=== PATIENT | male | born 1980 | race Caucasian/White ===

== ENCOUNTER → 2019-12-15 09:59 | Outpatient (BNVA) | payer OTHER, SELFPAY | PROVIDERS: PCP Family Medicine; Referring Provider Family Medicine; Visit Provider Internal Medicine Gastroenterology | DX: B18.2 Chronic viral hepatitis C (principal) | CPT/HCPCS: 99211 ==

== ENCOUNTER 2020-01-12 08:48 | Outpatient (REF) | payer OTHER, SELFPAY | END 2020-01-12 08:49 | disposition home or self-care (01) | LOC: HO.WFDLDS 08:48 | PROVIDERS: Visit Provider Internal Medicine Gastroenterology | DX: Z13.89 Encounter for screening for other disorder (principal) ==

== ENCOUNTER 2020-01-12 09:02 | Outpatient (REF) | payer OTHER, SELFPAY | END 2020-01-12 09:03 | disposition home or self-care (01) | LOC: HO.WFDLDS 09:02 | PROVIDERS: Visit Provider Internal Medicine Gastroenterology | DX: Z13.89 Encounter for screening for other disorder (principal) ==

== ENCOUNTER 2020-01-18 15:33 | Outpatient (REF) | payer OTHER, SELFPAY ==
[2020-01-18 16:35] LABS: MANUAL DIFF FLAG NO
[2020-01-18 16:38] LABS: Basophils Absolute Auto 0.1 X10*3/uL (0.0-0.2); Basophils Percent Auto 0.5 % (0-2); Eosinophils Percent Auto 0.2 % (0-4); Hematocrit 42.9 % (42-52); Hemoglobin 13.6 g/dl (14.0-18.0); Imm Gran Abs Auto 0.03 X10*3/uL (0.00-0.03); Imm Gran Pct Auto 0.3 % (0.0-0.4); Lymphocytes Absolute Auto 3.3 X10*3/uL (1.2-4.9); Lymphocytes Percent Auto 35.3 % (20-40); Mean Corpuscular HGB Conc 31.7 g/dl (31.0-36.0); Mean Corpuscular Hemoglobin 25.9 pg (27.0-33.0); Mean Corpuscular Volume 81.6 fL (80-98); Mean Platelet Volume 10.2 fL (9.4-12.4); Monocytes Absolute Auto 0.3 X10*3/uL (0.1-1.2); Monocytes Percent Auto 3.6 % (2-11); Neutrophils Absolute Auto 5.7 X10*3/uL (2.0-8.3); Neutrophils Percent Auto 60.1 % (45-73); Platelet Count 354 X10*3/uL (160-400); Red Blood Count 5.26 X10*6/uL (4.60-5.80); Red Cell Distribution Width 13.6 % (11.0-16.0); White Blood Count 9.4 X10*3/uL (4.8-10.8)
[2020-01-18 17:00] LABS: Alanine Aminotransferase 18 U/L (0-40); Albumin Level 4.7 g/dL (3.5-5.0); Alkaline Phosphatase 52 U/L (39-117); Anion Gap 14 (12-20); Aspartate Amino Transferase 25 U/L (5-37); Bilirubin Total 0.4 mg/dL (0.0-1.0); Blood Urea Nitrogen 10 mg/dL (9-16); Calcium 9.6 mg/dL (8.4-10.2); Carbon Dioxide 30 mmol/L (22-29); Chloride 100 mmol/L (96-108); Estimated Glomerular Filt Rate > 60; Glucose Random 76 mg/dL (60-115); Sodium 139 mmol/L (135-145); Total Protein 8.1 g/dL (6.5-8.0)
[2020-05-01 11:45] LABS: HCV Log PCR <1.18 NOT DETECTED; HepC Viral Load <15 NOT DETECTED
== END 2020-01-18 15:34 | disposition home or self-care (01) ==
LOC: HO.LAB 15:33
PROVIDERS: Visit Provider Internal Medicine Gastroenterology
DX: B18.2 Chronic viral hepatitis C (principal)
CPT/HCPCS: 36415; 80053; 85025; 87522

== ENCOUNTER 2020-02-09 12:00 | Outpatient (REF) | payer OTHER, SELFPAY ==
[2020-02-09 13:04] LABS: MANUAL DIFF FLAG NO
[2020-02-09 13:33] LABS: Alanine Aminotransferase 17 U/L (0-40); Albumin Level 4.8 g/dL (3.5-5.0); Alkaline Phosphatase 52 U/L (39-117); Anion Gap 11 (12-20); Aspartate Amino Transferase 24 U/L (5-37); Bilirubin Total 0.4 mg/dL (0.0-1.0); Blood Urea Nitrogen 15 mg/dL (9-16); Calcium 9.8 mg/dL (8.4-10.2); Carbon Dioxide 30 mmol/L (22-29); Chloride 101 mmol/L (96-108); Estimated Glomerular Filt Rate > 60; Glucose Random 79 mg/dL (60-115); Potassium 5.1 mmol/l (3.3-5.1); Sodium 137 mmol/L (135-145); Total Protein 8.2 g/dL (6.5-8.0)
[2020-02-09 13:35] LABS: Basophils Absolute Auto 0.1 X10*3/uL (0.0-0.2); Basophils Percent Auto 0.5 % (0-2); Eosinophils Percent Auto 0.4 % (0-4); Hematocrit 42.6 % (42-52); Hemoglobin 13.9 g/dl (14.0-18.0); Imm Gran Abs Auto 0.03 X10*3/uL (0.00-0.03); Imm Gran Pct Auto 0.3 % (0.0-0.4); Lymphocytes Absolute Auto 3.2 X10*3/uL (1.2-4.9); Lymphocytes Percent Auto 29.7 % (20-40); Mean Corpuscular HGB Conc 32.6 g/dl (31.0-36.0); Mean Corpuscular Hemoglobin 26.6 pg (27.0-33.0); Mean Corpuscular Volume 81.5 fL (80-98); Mean Platelet Volume 10.1 fL (9.4-12.4); Monocytes Absolute Auto 0.5 X10*3/uL (0.1-1.2); Neutrophils Absolute Auto 6.9 X10*3/uL (2.0-8.3); Neutrophils Percent Auto 64.1 % (45-73); Platelet Count 308 X10*3/uL (160-400); Red Blood Count 5.23 X10*6/uL (4.60-5.80); White Blood Count 10.7 X10*3/uL (4.8-10.8)
[2020-05-01 11:48] LABS: HCV Log PCR <1.18 NOT DETECTED; HepC Viral Load <15 NOT DETECTED
== END 2020-02-09 12:01 | disposition home or self-care (01) ==
LOC: HO.LAB 12:00
PROVIDERS: Visit Provider Internal Medicine Gastroenterology
DX: B18.2 Chronic viral hepatitis C (principal)
CPT/HCPCS: 36415; 80053; 85025; 87522

== ENCOUNTER → 2020-02-27 16:21 | Outpatient (BNVA) | payer OTHER, SELFPAY | PROVIDERS: PCP Family Medicine; Visit Provider Internal Medicine Gastroenterology | DX: Z76.89 Persons encountering health services in other specified circumstances (principal) ==

== ENCOUNTER 2020-05-03 11:52 | Outpatient (REF) | payer OTHER, SELFPAY ==
[2020-05-05 14:51] LABS: HCV Log PCR <1.18 NOT DETECTED Log IU/mL (NOT DETECTED); HepC Viral Load <15 NOT DETECTED IU/mL (NOT DETECTED)
== END 2020-05-03 11:53 | disposition home or self-care (01) ==
LOC: HO.LAB 11:52
PROVIDERS: Visit Provider Internal Medicine Gastroenterology
DX: B18.2 Chronic viral hepatitis C (principal)
CPT/HCPCS: 36415; 87522

== ENCOUNTER → 2020-06-04 13:28 | Outpatient (BNVA) | payer OTHER, SELFPAY | PROVIDERS: Visit Provider Internal Medicine Gastroenterology | DX: B18.2 Chronic viral hepatitis C (principal); K62.5 Hemorrhage of anus and rectum; R11.0 Nausea | CPT/HCPCS: 99212 ==

== ENCOUNTER 2020-06-13 07:44 | Outpatient (REF) | payer OTHER, SELFPAY | END 2020-06-13 07:45 | disposition home or self-care (01) | LOC: HO.LAB 07:44 | PROVIDERS: PCP Physician Assistant; Visit Provider Internal Medicine Gastroenterology | DX: Z13.89 Encounter for screening for other disorder (principal) ==

== ENCOUNTER 2020-06-17 07:55 | Outpatient (REF) | payer OTHER, SELFPAY ==
[2020-06-17 08:33] LABS: MANUAL DIFF FLAG NO
[2020-06-17 08:45] LABS: Basophils Percent Auto 0.7 % (0-2); Eosinophils Absolute Auto 0.1 X10*3/uL (0.0-0.4); Eosinophils Percent Auto 0.9 % (0-4); Hematocrit 40.3 % (42-52); Imm Gran Abs Auto 0.02 X10*3/uL (0.00-0.03); Imm Gran Pct Auto 0.4 % (0.0-0.4); Lymphocytes Absolute Auto 1.8 X10*3/uL (1.2-4.9); Lymphocytes Percent Auto 31.3 % (20-40); Mean Corpuscular HGB Conc 32.3 g/dl (31.0-36.0); Mean Corpuscular Hemoglobin 25.8 pg (27.0-33.0); Mean Platelet Volume 11.1 fL (9.4-12.4); Monocytes Absolute Auto 0.3 X10*3/uL (0.1-1.2); Monocytes Percent Auto 5.5 % (2-11); Neutrophils Absolute Auto 3.4 X10*3/uL (2.0-8.3); Neutrophils Percent Auto 61.2 % (45-73); Platelet Count 293 X10*3/uL (160-400); Red Blood Count 5.04 X10*6/uL (4.60-5.80); Red Cell Distribution Width 14.6 % (11.0-16.0); White Blood Count 5.6 X10*3/uL (4.8-10.8)
[2020-06-17 09:04] LABS: Alanine Aminotransferase 15 U/L (0-40); Albumin Level 4.4 g/dL (3.5-5.0); Alkaline Phosphatase 41 U/L (39-117); Anion Gap 14 (12-20); Aspartate Amino Transferase 25 U/L (5-37); Bilirubin Total 0.7 mg/dL (0.0-1.0); Blood Urea Nitrogen 5 mg/dL (9-16); C Reactive Protein 0.36 mg/dL (< or = 0.50); Calcium 10.1 mg/dL (8.4-10.2); Carbon Dioxide 29 mmol/L (22-29); Chloride 105 mmol/L (96-108); Estimated Glomerular Filt Rate > 60; Glucose Random 102 mg/dL (60-115); Sodium 143 mmol/L (135-145); Total Protein 7.3 g/dL (6.5-8.0)
[2020-06-17 09:26] LABS: Ferritin 111 ng/mL (20-250)
[2020-06-17 09:37] LABS: Erythrocyte Sedimentation Rate 9 MM/HR (0-15)
[2020-06-21 16:31] LABS: HCV Genotype PCR Not Detected
== END 2020-06-17 07:56 | disposition home or self-care (01) ==
LOC: HO.10HDL 07:55
PROVIDERS: Visit Provider Internal Medicine Gastroenterology
DX: B18.2 Chronic viral hepatitis C (principal); K62.5 Hemorrhage of anus and rectum; R11.0 Nausea
CPT/HCPCS: 36415; 80053; 82728; 85025; 85652; 86140

== ENCOUNTER 2020-07-03 11:11 | Day surgery (SDC) | payer OTHER, SELFPAY ==
[2020-06-27 14:51] VITALS: BMI 22.8
--- NOTE | 2020-07-02 10:30 | HO.ANESPROP2 ---
Documented by User: Janny Gaitan 07/02/20 10:31 HPI - Anesthesia Eval Consult details Narrative: 40yo M for Upper Endoscopy and Colonoscopy methadone daily PMFSH Active Problems Active Problems: All Active Problems (Updated 07/01/20 @ 08:57 by Scott Montaño MD) External otitis of left ear (Acute) Chronic hepatitis C (Acute) Rectal bleeding (Acute) Nausea (Acute) Cellulitis (Acute) Past Medical History Medical History Hepatitis Hx of opioid abuse Low blood pressure Family History Family History Father History of cancer Cancer of prostate Mother No problems noted. Surgical History Surgical History History of surgery on wrist Social History Social History Household Members: Family Are you a primary critical care clinical nurse specialist to a significant other at home: No Do you presently have visiting nurse or other home services: No Smoking Status: Former smoker Tobacco Type: Cigarette and Smokeless Tobacco Smoking Quit Date: 2013 (using chewing tobacco) Use of substances other than those prescribed or required for medical reasons: Yes Substance Use Type: Former Substance User, Heroin, Marijuana, Methamphetamine and Other Substance Use Type Other:: former heroin & percocet (will occasionally take a percocet)-on methadone Substance Use Frequency: Chronic Longstanding Have you been hit, kicked, punched, or otherwise hurt by someone within the past year? If so, by whom?: No Are you DNR?: No Advance Directives Information Provided: No Recently lost weight without trying: Yes How much weight loss: 14-23 pounds Eating poorly because of decreased appetite: Yes Nutrition screen score: 5 Nutrition Risks: Acute nausea or vomiting x1 week Meds Allergies Allergy/AdvReac Type Severity Reaction Status Date / Time No Known Allergies Allergy Verified 07/03/20 11:30 Home Medications Medication Instructions Recorded Confirmed Last Taken Type methadone 10 mg/mL oral concentrate 50 mg PO DAILY ml 02/07/20 07/01/20 07/03/20 08:50 History Exam Exam Date and Time: July 02, 2020 1030 Height,Weight and Vital Signs: Height 5 ft 6 in Weight 64.41 kg Pertinent Lab Results Pertinent Lab Results: Laboratory Tests 06/17/20 06/17/20 08:12 08:12 WBC 5.6 Hgb 13.0 L Hct 40.3 L Plt Count 293 Sodium 143 Potassium 5.0 Chloride 105 Carbon Dioxide 29 BUN 5 L D Creatinine 1.24 Assessment and Plan Assessment Anesthesia Assessment: Chart Reviewed Documented by User: Edda Zapata 07/03/20 12:04 [facility] Past Medical History Medical History Hepatitis Hx of opioid abuse Low blood pressure Family History Family History Father History of cancer Cancer of prostate Mother No problems noted. Surgical History Surgical History History of surgery on wrist Social History Social History Household Members: Family Are you a primary critical care clinical nurse specialist to a significant other at home: No Do you presently have visiting nurse or other home services: No Smoking Status: Former smoker Tobacco Type: Cigarette and Smokeless Tobacco Smoking Quit Date: 2013 (using chewing tobacco) Use of substances other than those prescribed or required for medical reasons: Yes Substance Use Type: Former Substance User, Heroin, Marijuana, Methamphetamine and Other Substance Use Type Other:: former heroin & percocet (will occasionally take a percocet)-on methadone Substance Use Frequency: Chronic Longstanding Have you been hit, kicked, punched, or otherwise hurt by someone within the past year? If so, by whom?: No Are you DNR?: No Advance Directives Information Provided: No Recently lost weight without trying: Yes How much weight loss: 14-23 pounds Eating poorly because of decreased appetite: Yes Nutrition screen score: 5 Nutrition Risks: Acute nausea or vomiting x1 week Meds Allergies Allergy/AdvReac Type Severity Reaction Status Date / Time No Known Allergies Allergy Verified 07/03/20 11:30 Home Medications Medication Instructions Recorded Confirmed Last Taken Type methadone 10 mg/mL oral concentrate 50 mg PO DAILY ml 02/07/20 07/01/20 07/03/20 08:50 History Exam Airway Mallampati Class: II (Tip upoer teeth caps) TM Dist: >3cm Neck ROM: Full Heart: RRR Lungs: CTA Assessment and Plan Assessment Anesthesia Assessment: Anesthesia Plan Discussed and Chart Reviewed Final Anesthetic Review NPO: Yes (Sip water with med) ASA Class: II Final Preanesthetic Review: No Changes in Pt Med Stat and Consent Obtained/Reviewed Patient Risk: Intermediate Procedure Risk: Intermediate Anesthetic Plan Anesthetic Plan: MAC: Disposition: Standard PACU
[2020-07-03 11:37] VITALS: BP 115/73; PULSE 74; RESP 18; TEMP 36.8; O2SAT 96
[2020-07-03] MEDS: Lactated Ringers 1,000 ML 100 ML IVCONT (11:46)
--- NOTE | 2020-07-03 11:52 | MHC.SHP ---
Pre-Procedural Eval Section B Chief Complaint: Rectal Bleeding, Nausea Details of Present Illness: weight loss Relevant Family History (Specify if Yes): No Relevant Social History: None (ex tobacco user and drug user) Medical History: Significant History (Hepatitis Hx of opioid abuse Low blood pressure) History of Previous Operations: Relevant previous surgery/procedure and date(s) (History of surgery on wrist) Allergies: Allergies Allergy/AdvReac Type Severity Reaction Status Date / Time No Known Allergies Allergy Verified 07/03/20 11:30 Review of Systems Sugical H&P ROS: Negative: Constitution, Cardiovascular, Respiratory, Neurological, Psychiatric, Hem-Onc, Allergic/Immunologic, Gastrointestinal, Genitourinary, Musculoskeletal, Integumentary, Endocrine and Eyes/Ears/Nose/Throat Exam Surgical H&P Exam: Normal: HEENT, Normal: Heart, Normal: Lungs, Normal: Extremities, Normal: Abdomen, Normal: Skin and Normal: Neurological Plan Diagnosis/Plan: Unchanged I have reviewed the history and physical and performed a pertinent physical examination on my patient. No changes have occurred unless specified.
--- NOTE | 2020-07-03 12:49 | P.BOP_ITS ---
Brief Operative Note Date of Service: 07/03/20 Pre-op diagnosis: weight loss, rectal bleeding, nausea Post-op diagnosis: same Procedure: see op note Surgeon: Shaquille Hallman MD Anesthesia: MAC Was an Posting Machine Operator used for this Procedure?: No Estimated blood loss (mL): 0 Condition: stable Disposition: PACU
--- NOTE | 2020-07-03 12:49 | W.PM.OPN ---
Operative Note Operative Note Date of Service: 07/03/20 Narrative: Operative Information Procedure Description: EGD, Colonoscopy FLEXIBLE TRANSORAL UPPER GASTROINTESTINAL ENDOSCOPY AND COLONOSCOPY PROCEDURE NOTE UPPER ENDOSCOPY Consent: Indications for the procedure and potential complications of bleeding, perforation, reaction to medications and missed diagnosis were discussed with the patient and informed consent was obtained. Instrument: Olympus GIF H 190 J mid size upper endoscope Monitoring: Vital signs and clinical assessment, continuous EKG monitoring, Pulse oximetry, Carbon Dioxide monitoring and blood pressure monitoring were done throughout the procedure. Procedure: The patient was placed in the left lateral decubitis position and pre-procedure medications were administered and a bite block was placed. The endoscope was inserted into the mouth and advanced under direct vision to the third part of duodenum. A careful inspection was made as the upper endoscope was withdrawn including a retroflexed examination of the proximal stomach; Findings and interventions are described below. Findings: Larynx:normal Esophagus: GE junction at 40 cm, diaphragm hiatus at 40 cm, mild esophagitis bx taken from GEj and random esophagus Stomach: Patchy erythema. Biopsies were obtained. Grade 2 flap valve on retroflexed examination of the cardia. Stomach was J shaped. Duodenum: Normal bulb and descending duodenum, bx taken Intervention: Biopsies as noted above COLONOSCOPY Instrument: Olympus variable stiffness pediatric scope 190L Colonoscopy Monitoring: Vital signs and clinical assessment, continuous EKG monitoring, Pulse oximetry, Carbon Dioxide monitoring and blood pressure monitoring were done throughout the procedure. Colon withdrawal time was 14 minutes. Procedure: The patient was placed in the left lateral decubitis position and pre-procedure medications were administered. After a digital rectal examination of the ano-rectum, the video colonoscope was inserted into the rectum and advanced through the colon to the cecum/TI. The colonoscope was slowly withdrawn in a retrograde panoramic fashion and the colon mucosa was carefully examined including a retroflexed view of the rectum. Findings and interventions are described below. Procedure Difficulty:moderate Findings: Terminal Ileum-normal, bx taken random colon bx taken Cecum:normal Ascending Colon: normal Transverse Colon -normal Descending Colon:normal Sigmoid Colon: 10 mm sessile polyp removed with cold snare Rectum: Retroflexion with moderate sized internal hemorrhoids, grade II, 6-8 mm sessile polyp removed with forceps Anorectum - internal hemorrhoids seen on forward view Colon preparation: [place] Bowel Preparation Scale Right colon; 3 Transverse colon: 3 Left colon; 3 (0 = Unprepared colon segment with mucosa not seen due to solid stool that cannot be cleared. 1 = Portion of mucosa of the colon segment seen, but other areas of the colon segment not well seen due to staining, residual stool and/or opaque liquid. 2 = Minor amount of residual staining, small fragments of stool and/or opaque liquid, but mucosa of colon segment seen well. 3 = Entire mucosa of colon segment seen well with no residual staining, small fragments of stool or opaque liquid) Impression and Post Procedure Diagnosis: Endoscopy Findings: gastritis esophagitis Colonoscopy Findings: polyps internal hemorrhoids Plan: Await Pathology results Repeat Colonoscopy in 5 years or earlier if clinically indicated High fiber diet leaflet avoid straining at stool, epsom salts and sitz bath, anusol supps or cream prn Above findings were reviewed with the patient and relevant handouts were provided if indicated.
[2020-07-03 13:39] VITALS: BP 84/43; PULSE 45; RESP 16; TEMP 36.4; O2SAT 97
[2020-07-03 13:55] VITALS: BP 89/48; PULSE 43; RESP 18; O2SAT 95
[2020-07-03 14:10] VITALS: BP 94/46; PULSE 46; RESP 18; O2SAT 99
== END 2020-07-03 14:59 | disposition home or self-care (01) ==
PROVIDERS: PCP Physician Assistant; Visit Provider Internal Medicine Gastroenterology
PROC: (CPT 45385; principal; 2020-07-03 12:20)
DX: K62.5 Hemorrhage of anus and rectum (principal); D12.5 Benign neoplasm of sigmoid colon; D12.8 Benign neoplasm of rectum; K64.1 Second degree hemorrhoids; K29.50 Unspecified chronic gastritis without bleeding; K20.80 Other esophagitis without bleeding; K44.9 Diaphragmatic hernia without obstruction or gangrene; F11.20 Opioid dependence, uncomplicated; Z86.19 Personal history of other infectious and parasitic diseases; Z87.891 Personal history of nicotine dependence
CPT/HCPCS: 45385; 45380; 43239; 88305; 88342

== ENCOUNTER 2020-07-15 12:54 | Outpatient (REF) | payer OTHER, SELFPAY ==
[2020-07-18 09:07] LABS: Fecal Fat Qualitative Abnormal (Normal)
[2020-07-22 20:02] LABS: Calprotectin, Fecal 35 mcg/g
== END 2020-07-15 12:55 | disposition home or self-care (01) ==
LOC: HO.10HDL 12:54
PROVIDERS: Visit Provider Internal Medicine Gastroenterology
DX: K62.5 Hemorrhage of anus and rectum (principal); R11.0 Nausea; B18.2 Chronic viral hepatitis C
CPT/HCPCS: 82705; 83993

== ENCOUNTER 2020-08-06 09:14 | Outpatient (REF) | payer OTHER, SELFPAY ==
[2020-08-06 11:00] LABS: CDIFF Ag Negative (Negative); CDIFF Internal ctrl Dots and bkg OK (V); CDiff Toxin Negative (Negative)
== END 2020-08-06 09:15 | disposition home or self-care (01) ==
LOC: HO.LNP 09:14
PROVIDERS: PCP Physician Assistant; Visit Provider Internal Medicine Gastroenterology
DX: A09 Infectious gastroenteritis and colitis, unspecified (principal)
CPT/HCPCS: 87045; 87046; 87177; 87209; 87324; 87329; 87449

== ENCOUNTER → 2020-09-10 14:13 | Outpatient (BNVA) | payer OTHER, SELFPAY | PROVIDERS: PCP Physician Assistant; Referring Provider Physician Assistant; Visit Provider Internal Medicine Gastroenterology | DX: K52.9 Noninfective gastroenteritis and colitis, unspecified (principal); K29.70 Gastritis, unspecified, without bleeding; K20.90 Esophagitis, unspecified without bleeding; B18.2 Chronic viral hepatitis C; H60.92 Unspecified otitis externa, left ear; M94.1 Relapsing polychondritis; F11.11 Opioid abuse, in remission; F12.11 Cannabis abuse, in remission; F15.11 Other stimulant abuse, in remission; R68.81 Early satiety | CPT/HCPCS: 99212 ==

== ENCOUNTER 2020-09-11 09:22 | Outpatient (REF) | payer OTHER, SELFPAY ==
[2020-09-11 10:28] LABS: Estimated Average Glucose 108 mg/dL; Hemoglobin A1c % 5.4 %
[2020-09-11 10:50] LABS: Anion Gap 16 (12-20); Blood Urea Nitrogen 5 mg/dL (9-16); C Reactive Protein 0.52 mg/dL (< or = 0.50); Carbon Dioxide 29 mmol/L (22-29); Chloride 101 mmol/L (96-108); Estimated Glomerular Filt Rate > 60; Glucose Random 95 mg/dL (60-115); Potassium 4.2 mmol/L (3.3-5.1); Sodium 142 mmol/L (135-145)
[2020-09-11 11:01] LABS: Calcium 10.5 mg/dL (8.4-10.2)
[2020-09-11 11:02] LABS: HIV AB/AG Nonreactive (Nonreactive); HIV Num 1 0.13 S/CO (0.00-0.99)
[2020-09-11 11:05] LABS: Prostate Specific Antigen Scr 0.26 ng/mL (<0.05-4.0)
[2020-09-12 19:01] LABS: Immunoglobulin G Subclass 1 856 mg/dL (382-929); Immunoglobulin G Subclass 2 222 mg/dL (241-700); Immunoglobulin G Subclass 3 86 mg/dL (22-178); Immunoglobulin G Subclass 4 74.8 mg/dL (4-86); Immunoglobulin G Total 1209 mg/dL (600-1640)
[2020-09-13 10:02] LABS: Myeloperoxidase Antibody <1.0 AI; Proteinase 3 PR3 Antibodies <1.0 AI
[2020-09-13 14:56] LABS: IgA 272 mg/dL (47-310); IgG 1308 mg/dL (600-1640); IgM 308 mg/dL (50-300)
[2020-09-17 20:26] LABS: Trypsin 292.7 ng/mL (180.5-885.3)
== END 2020-09-11 09:23 | disposition home or self-care (01) ==
LOC: HO.10HDL 09:22
PROVIDERS: Internal Medicine Gastroenterology; Visit Provider Physician Assistant
DX: Z12.5 Encounter for screening for malignant neoplasm of prostate (principal); K52.9 Noninfective gastroenteritis and colitis, unspecified; H60.92 Unspecified otitis externa, left ear; Z80.42 Family history of malignant neoplasm of prostate
CPT/HCPCS: 36415; 80048; 82784; 82943; 83036; 83519; 84153; 86021; 86140; 87389

== ENCOUNTER → 2020-10-04 08:02 | Outpatient (REF) | payer OTHER, SELFPAY ==
--- NOTE | ~2020-10-04 | NM_ITS ---
EXAMINATION: RADIONUCLIDE SOLID FOOD GASTRIC EMPTYING 4-HOUR STUDY CLINICAL INFORMATION: Early satiety. COMPARISON: No previous gastric emptying study is available for comparison. EXAMINATION: TECHNIQUE: A standard meal consisting of 4 oz of Egg Beaters brand tagged with 1 mCi Tc-99m Sulfur Colloid, 8 oz water and 2 slices of toast with jelly was administered orally to the patient. Images were obtained using a dual head gamma camera in the anterior and posterior projections over of the stomach immediately post ingestion and at hourly intervals up to 3 hours post ingestion. Images were not obtained at 4 hours due to the minimal retention at 3 hours. The anterior and posterior counts at each time interval were averaged using the geometric mean and expressed as percentage of the immediate post ingestion counts. FINDINGS: There is good visualization of activity in the stomach immediately post ingestion. As the study progresses, there is good clearance of activity from the stomach and visualization of progressively increasing small bowel activity. By the end of the study, there is almost no retention noted in the stomach. Retention in the stomach at each time interval was: 1 hour 45% (normal 37%-90%) 2 hours 11% (normal 30%-60%) 3 hours 4% 4 hours (Not Obtained) (normal 0%-10%) NM/NM gastric emptying study IMPRESSION: Normal solid food gastric emptying study.
== END ==
LOC: HO.NUCMED 08:02
PROVIDERS: PCP Internal Medicine; Visit Provider Internal Medicine Gastroenterology
DX: R68.81 Early satiety (principal); K52.9 Noninfective gastroenteritis and colitis, unspecified; H93.8X9 Other specified disorders of ear, unspecified ear
CPT/HCPCS: 78264; 99202; A9541

== ENCOUNTER 2020-10-05 09:58 | Outpatient (REF) | payer OTHER, SELFPAY ==
--- NOTE | ~2020-10-05 | XR_ITS ---
EXAMINATION: XR CHEST CLINICAL INFORMATION: Polychondritis COMPARISON: September 22, 2013 TECHNIQUE: 2 views of the chest were obtained. FINDINGS: No significant abnormality is noted involving the heart, lungs, mediastinum, bony thorax or soft tissues. XR/XR chest 2V IMPRESSION: No acute disease.
[2020-10-05 10:47] LABS: MANUAL DIFF FLAG NO
[2020-10-05 11:00] LABS: Basophils Absolute Auto 0.1 X10*3/uL (0.0-0.2); Eosinophils Absolute Auto 0.2 X10*3/uL (0.0-0.4); Eosinophils Percent Auto 1.9 % (0-4); Hematocrit 40.3 % (42-52); Hemoglobin 12.9 g/dl (14.0-18.0); Imm Gran Abs Auto 0.02 X10*3/uL (0.00-0.03); Imm Gran Pct Auto 0.2 % (0.0-0.4); Lymphocytes Absolute Auto 3.1 X10*3/uL (1.2-4.9); Lymphocytes Percent Auto 37.6 % (20-40); Mean Corpuscular Volume 81.1 fL (80-98); Mean Platelet Volume 10.4 fL (9.4-12.4); Monocytes Absolute Auto 0.5 X10*3/uL (0.1-1.2); Monocytes Percent Auto 6.2 % (2-11); Neutrophils Absolute Auto 4.4 X10*3/uL (2.0-8.3); Neutrophils Percent Auto 53.1 % (45-73); Platelet Count 368 X10*3/uL (160-400); Red Blood Count 4.97 X10*6/uL (4.60-5.80); Red Cell Distribution Width 14.6 % (11.0-16.0); White Blood Count 8.3 X10*3/uL (4.8-10.8)
[2020-10-05 11:40] LABS: Glucose Urine UA NEG (NEG); Leukocyte Esterase Urine NEG (NEG); Nitrite Urine NEG (NEG); PH 6.5 (5.0-8.0); Specific Gravity - Urine <= 1.005 (1.005-1.025); Urine Blood NEG (NEG); Urine Ketones NEG (NEG); Urine Protein NEG (NEG-TRACE)
[2020-10-05 11:41] LABS: Alanine Aminotransferase 16 U/L (0-40); Albumin Level 4.9 g/dL (3.5-5.0); Alkaline Phosphatase 53 U/L (39-117); Anion Gap 16 (12-20); Aspartate Amino Transferase 29 U/L (5-37); Bilirubin Total 0.4 mg/dL (0.0-1.0); Blood Urea Nitrogen 5 mg/dL (9-16); C Reactive Protein 0.18 mg/dL (< or = 0.50); Calcium 10.4 mg/dL (8.4-10.2); Carbon Dioxide 29 mmol/L (22-29); Chloride 101 mmol/L (96-108); Estimated Glomerular Filt Rate > 60; Glucose Random 96 mg/dL (60-115); Magnesium 2.3 mg/dL (1.6-2.6); Potassium 4.8 mmol/L (3.3-5.1); Rheumatoid Factor < 15.0 IU/mL (<15.0); Sodium 141 mmol/L (135-145); Total Protein 8.2 g/dL (6.5-8.0)
[2020-10-05 11:45] LABS: Appearance Urine CLEAR; Color Urine YELLOW
[2020-10-05 11:46] LABS: Erythrocyte Sedimentation Rate 13 MM/HR (0-15)
[2020-10-05 12:07] LABS: RBC Urine 0-2 /HPF (0); WBC Urine 0-2 /HPF (0-4)
[2020-10-07 09:57] LABS: Myeloperoxidase Antibody <1.0 AI; Proteinase 3 PR3 Antibodies <1.0 AI
[2020-10-07 13:15] LABS: Cyclic Citrullinated Peptide <16 UNITS
== END 2020-10-05 09:59 | disposition home or self-care (01) ==
LOC: HO.LAB 09:58
PROVIDERS: PCP Physician Assistant; Visit Provider Student in an Organized Health Care Education/Training Program
DX: M94.1 Relapsing polychondritis (principal); H93.8X9 Other specified disorders of ear, unspecified ear
CPT/HCPCS: 36415; 71046; 80053; 81001; 83735; 85025; 85652; 86021; 86140; 86200; 86431

== ENCOUNTER → 2020-10-22 12:58 | Outpatient (BNVA) | payer OTHER, SELFPAY | PROVIDERS: PCP Physician Assistant; Visit Provider Student in an Organized Health Care Education/Training Program | DX: H93.8X3 Other specified disorders of ear, bilateral (principal) | CPT/HCPCS: 99212 ==

== ENCOUNTER → 2020-10-23 10:28 | Outpatient (BNVA) | payer OTHER, SELFPAY | PROVIDERS: PCP Internal Medicine; Referring Provider Internal Medicine Gastroenterology; Visit Provider Surgery | DX: K64.8 Other hemorrhoids (principal) | CPT/HCPCS: 46600; 99202 ==

== ENCOUNTER → 2021-06-30 12:47 | Outpatient (BNVA) | payer OTHER, SELFPAY | PROVIDERS: PCP Internal Medicine; Visit Provider Internal Medicine Gastroenterology | DX: Z13.89 Encounter for screening for other disorder (principal) ==

== ENCOUNTER 2021-08-19 14:01 | Outpatient (REF) | payer OTHER, SELFPAY | END 2021-08-19 14:02 | disposition home or self-care (01) | LOC: HO.US 14:01 | PROVIDERS: Visit Provider Internal Medicine Gastroenterology | DX: Z13.89 Encounter for screening for other disorder (principal) ==

== ENCOUNTER 2021-08-27 15:25 | Emergency (ER) | payer OTHER, SELFPAY | END 2021-08-28 03:19 | disposition left against medical advice (07) | LOC: HO.ED 19:03 | PROVIDERS: Emergency Provider Emergency Medicine; PCP Physician Assistant | DX: Z48.00 Encounter for change or removal of nonsurgical wound dressing (principal) ==

== ENCOUNTER 2021-09-12 | Outpatient (REF) | payer OTHER, SELFPAY ==
--- NOTE | ~2021-09-12 | MR_ITS ---
EXAMINATION: MRI ABDOMEN AND PELVIS WITH AND WITHOUT CONTRAST MR ENTEROGRAPHY CLINICAL INFORMATION: Gastroenteritis and colitis, unspecified. Abdominal pain, cramping and diarrhea. COMPARISON: Gastric emptying study 10/04/2020. Abdominal ultrasound 10/10/2019. TECHNIQUE: 1500 mL Volume by mouth contrast prior to scanning. Then, multiple routine MRI sequences through the abdomen and pelvis were obtained on a high-field 1.5 Kim MRI before and after the uneventful administration of 6.5 mL of Gadavist gadolinium-based IV contrast. FINDINGS: STOMACH: No significant wall thickening or hyperenhancement. SMALL BOWEL: Evaluation is very limited due to motion. However, accounting for these limitations, no gross wall thickening or hyperenhancement are noted. COLON: As above, evaluation is very limited due to motion. However, no significant wall thickening or hyperenhancement are noted. LUNG BASES: Lung bases are clear. LIVER: Signal loss in the opposed phase dual echo images suggesting the presence of hepatic steatosis. Otherwise, the liver is normal in size and shape with no focal lesion. GALL BLADDER AND BILIARY TREE: Gallbladder normal. No intra or extra-hepatic biliary ductal dilation. SPLEEN: Normal. Normal size. No focal lesion. PANCREAS: Normal. ADRENAL GLANDS: Normal. No adrenal mass. KIDNEYS AND URETERS: Normal symmetric renal enhancement. Small Bosniak 1 cyst in the upper pole of the right kidney. No hydronephrosis or mass. LYMPHOVASCULAR STRUCTURES: Normal caliber aorta. No pathologically enlarged abdominal or retroperitoneal lymphadenopathy by size criteria. PELVIC VISCERA: Unremarkable. OSSEOUS STRUCTURES: No acute or suspicious osseous abnormalities. MR/MR abdomen wo/w con IMPRESSION: Very limited examination secondary to motion with no gross abnormalities to suggest active inflammatory bowel disease. Correlation with colonoscopy could be obtained to further assess given the limitations of this examination. Hepatic steatosis.
== END 2021-09-12 00:01 | disposition home or self-care (01) ==
LOC: HO.MRI
PROVIDERS: Visit Provider Internal Medicine Gastroenterology
DX: K52.9 Noninfective gastroenteritis and colitis, unspecified (principal); K62.5 Hemorrhage of anus and rectum
CPT/HCPCS: 72197; 74183; A9585

== ENCOUNTER 2021-11-11 07:47 | Outpatient (REF) | payer OTHER, SELFPAY ==
--- NOTE | ~2021-11-11 | XR_ITS ---
EXAMINATION: XR ABDOMEN KUB CLINICAL INDICATION: Foreign body in the stomach COMPARISON: None TECHNIQUE: AP view of the abdomen. FINDINGS: The bowel gas pattern is normal with no evidence of ileus or obstruction. No unusual soft tissue calcifications or foreign body seen are noted. The bones are unremarkable. XR/XR KUB IMPRESSION: No radiopaque foreign body seen in the abdomen.
== END 2021-11-11 07:48 | disposition home or self-care (01) ==
LOC: HO.XRAY 07:47
PROVIDERS: PCP Physician Assistant; Visit Provider Internal Medicine Gastroenterology
DX: T18.2XXA Foreign body in stomach, initial encounter (principal)
CPT/HCPCS: 74018

== ENCOUNTER → 2022-02-16 14:00 | Outpatient (BNVA) | payer OTHER, SELFPAY | PROVIDERS: PCP Physician Assistant; Visit Provider Internal Medicine Gastroenterology | DX: K52.9 Noninfective gastroenteritis and colitis, unspecified (principal) | CPT/HCPCS: 99212 ==

== ENCOUNTER 2022-02-18 11:37 | Outpatient (REF) | payer OTHER, SELFPAY ==
[2022-02-18 13:42] LABS: Hemoglobin 11.2 g/dl (14.0-18.0); Mean Corpuscular HGB Conc 31.1 g/dl (31.0-36.0); Mean Corpuscular Hemoglobin 25.6 pg (27.0-33.0); Mean Corpuscular Volume 82.4 fL (80.0-98.0); Mean Platelet Volume 10.3 fL (9.4-12.4); Platelet Count 424 X10*3/uL (160-400); Red Blood Count 4.37 X10*6/uL (4.60-5.80); Red Cell Distribution Width 14.1 % (11.0-16.0); White Blood Count 6.8 X10*3/uL (4.8-10.8)
[2022-02-18 14:02] LABS: Estimated Average Glucose 100 mg/dL; Hemoglobin A1c % 5.1 %
[2022-02-18 14:22] LABS: Erythrocyte Sedimentation Rate 34 MM/HR (0-15)
[2022-02-18 14:31] LABS: Alanine Aminotransferase 9 U/L (0-40); Albumin Level 4.3 g/dL (3.5-5.0); Alkaline Phosphatase 59 U/L (39-117); Anion Gap 14 (12-20); Aspartate Amino Transferase 25 U/L (5-37); Bilirubin Total 0.5 mg/dL (0.0-1.0); Blood Urea Nitrogen 4 mg/dL (9-16); Calcium 9.8 mg/dL (8.4-10.2); Carbon Dioxide 30 mmol/L (22-29); Chloride 101 mmol/L (96-108); Estimated Glomerular Filt Rate > 60; Glucose Fasting 75 mg/dL (60-99); Iron 52 mcg/dL (45-160); Percent Iron Saturation 22 % (15-50); Potassium 4.6 mmol/L (3.3-5.1); Rheumatoid Factor 21.7 IU/mL (<15.0); Sodium 140 mmol/L (135-145); TSH reflex Free T4 0.36 uIU/mL (0.32-4.0); Total Iron Binding Capacity 233 mcg/dL (228-428); Total Protein 7.4 g/dL (6.5-8.0); Unsaturated Iron Binding 181 ug/dL
[2022-02-18 14:34] LABS: Folate 2.3 ng/mL (> or = 4.0); Vitamin B12 1497 pg/mL (200-900)
[2022-02-20 15:54] LABS: Anti Nuclear Antibody Screen NEGATIVE (NEGATIVE)
== END 2022-02-18 11:38 | disposition home or self-care (01) ==
LOC: HO.10HDL 11:37
PROVIDERS: Visit Provider Physician Assistant
DX: Z13.1 Encounter for screening for diabetes mellitus (principal); M94.1 Relapsing polychondritis; D50.9 Iron deficiency anemia, unspecified; E53.8 Deficiency of other specified B group vitamins; F41.1 Generalized anxiety disorder; K58.0 Irritable bowel syndrome with diarrhea
CPT/HCPCS: 36415; 80053; 82607; 82746; 83036; 83540; 84443; 85027; 85652; 86038; 86039; 86431

== ENCOUNTER → 2022-04-09 12:20 | Day surgery (SDC) | payer OTHER, SELFPAY ==
[2022-02-26 13:46] VITALS: BMI 23.8
[2022-04-09 12:55] LABS: Amphetamine Screen Urine Not Detected (Not Detect); Barbiturates, Urine Not Detected (Not Detect); Benzodiazepines Screen Urine Not Detected (Not Detect); Cannabinoid Screen Urine POSITIVE (Not Detect); Cocaine Screen Urine POSITIVE (Not Detect); Fentanyl, urine POSITIVE (Not Detect); Opiate Screen Urine POSITIVE (Not Detect); Phencyclidine Screen Urine Not Detected (Not Detect)
--- NOTE | 2022-04-09 13:13 | PC.NURSE ---
during preop assessment patient admitted to using cocaine and heroin 2 days ago. patient utox positive for fentanyl, cocaine, marijuana and opiates. Dr. Mustafa aware and at bedside and risks of anesthesia explained to patient. patient understood. Dr. Hallman aware. procedure to be rescheduled at this time.
== END ==
PROVIDERS: Anesthesiology; PCP Physician Assistant; Visit Provider Internal Medicine Gastroenterology
DX: K52.9 Noninfective gastroenteritis and colitis, unspecified (principal); M94.1 Relapsing polychondritis; Z53.09 Procedure and treatment not carried out because of other contraindication; R82.5 Elevated urine levels of drugs, medicaments and biological substances
CPT/HCPCS: 80307

== ENCOUNTER → 2022-04-24 11:38 | Outpatient (BNVA) | payer OTHER, SELFPAY | PROVIDERS: PCP Physician Assistant; Visit Provider Internal Medicine Gastroenterology | DX: R19.7 Diarrhea, unspecified (principal); Z86.19 Personal history of other infectious and parasitic diseases | CPT/HCPCS: 99212 ==

== ENCOUNTER → 2022-07-17 11:46 | Outpatient (BNVA) | payer OTHER, SELFPAY | PROVIDERS: PCP Physician Assistant; Referring Provider Physician Assistant; Visit Provider Internal Medicine Gastroenterology | DX: M25.552 Pain in left hip (principal) | CPT/HCPCS: 99212 ==

== ENCOUNTER 2022-08-06 14:49 | Outpatient (REF) | payer OTHER, SELFPAY ==
--- NOTE | ~2022-08-06 | XR_ITS ---
EXAMINATION: XR PELVIS CLINICAL INFORMATION: Pain COMPARISON: KUB 11/11/2021 TECHNIQUE: AP view of the pelvis. FINDINGS: No acute fracture or dislocation. Joint spaces are maintained. Few calcified phleboliths in the pelvis, soft tissues are otherwise unremarkable. XR/XR pelvis 1-2V IMPRESSION: No acute osseous abnormality.
== END 2022-08-06 14:50 | disposition home or self-care (01) ==
LOC: HO.HMGCX 14:49
PROVIDERS: PCP Physician Assistant; Visit Provider Dentist Pediatric Dentistry
DX: R10.9 Unspecified abdominal pain (principal); M25.552 Pain in left hip
CPT/HCPCS: 36415; 72170; 83519

== ENCOUNTER 2022-08-07 08:27 | Outpatient (REF) | payer OTHER, SELFPAY ==
[2022-08-14 20:38] LABS: Pancreatic Elastase-1 392 mcg/g
== END 2022-08-07 08:28 | disposition home or self-care (01) ==
LOC: HO.HMGCLNP 08:27
PROVIDERS: PCP Physician Assistant; Visit Provider Internal Medicine Gastroenterology
DX: K52.9 Noninfective gastroenteritis and colitis, unspecified (principal)
CPT/HCPCS: 82656

== ENCOUNTER 2022-10-02 14:43 | Outpatient (AMB) | payer OTHER, SELFPAY ==
[2022-10-02 14:45] VITALS: BP 142/90; PULSE 95; O2SAT 100; BMI 21.9
--- NOTE | 2022-10-02 14:45 | MHC.PC.OV ---
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 For his history of relapsing polychondritis Polychondritis:? 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 Continues to have in manifestations thought to be due to his polychondritis.? Has recently tried permethrin which he reports did respond. But when he stops using it comes right back. No one else in his household with skin manifestations.He has seen multiple dermatologists and reports getting skin biopsies without a clear diagnosis. ?? Skin scrapings for scabies has not been done.? Patient returns today accompanied by his aunt Cliff complaining of groin rash x 4/5 days. Patient also has full-body skin rash of annular skin ulcerations patient was seen by [facility] on 09/23/22. 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 Both patient and on aunt swear that patient does not pick skin, the if even reports they pick on the length of putting a cure on patient while he sleeps to ensure that he is not picking. Patient reports that they start as little red mom's and then progressed to larger ulcer appearing lesions. Patient was prescribed triamcinolone cream 0.1% to apply to affected areas times 14 days. Patient currently on day [address] Ardon consulted on this case, Will add clomitrazole cream for groin rash and will follow-up with [facility] on plan. [facility] Medical History (Updated 10/02/22 @ 15:38 by JAYLAN Fry) Annual physical exam Hepatitis Hx of opioid abuse Low blood pressure Prolapsed hemorrhoids Surgical History H/O colonoscopy History of esophagogastroduodenoscopy (EGD) History of surgery on wrist Family History Father History of cancer Cancer of prostate Mother No problems noted. Brother Cancer of prostate Other Mental problem Substance abuse Social History Household Members: Family Housing: Apartment Are you a primary intensive care unit nurse to a significant other at home: No Do you presently have visiting nurse or other home services: No Alcohol intake: never Patient Tobacco Use Status: Former Tobacco user Cigarettes Per Day: 1 e-Cigarette/Vaping Use: Never Used Second Hand Smoke Exposure: No Substance Use Type: Former Substance User, Heroin, Marijuana, Methamphetamine and Other service: No Current occupational status: unemployed Cognitive needs: No Hearing needs: No Vision needs: No Questionnaire Thrive Questionnaire Date Thrive assessed: 09/15/21 AUDIT C Alcohol Use Questionnaire (AUDIT-C) 1. How often do you have a drink containing alcohol?: Never Total Score: 0 ADRIAN-7 AMB Questionnaire ADRIAN-7 Date ADRIAN - 7 assessed: 09/15/21 Source: Developed by Drs. Elgin Davis, Idalia Schulz, Mukesh Bro and colleagues, with an educational stanford from [employer]. Review of Systems Const Denies chills, Denies fatigue, Denies fever(s) and Denies poor appetite Eyes Denies no additional complaints ENT Reports Normal hearing present Card Denies chest pain, Denies syncope, Denies rapid heart rate and Denies dyspnea Resp Denies cough and Denies dyspnea GI Denies change in stool character, Denies constipation, Denies diarrhea, Denies nausea and Denies vomiting Denies dysuria, Denies urinary frequency and Denies urinary urgency Skin/Breast Details: Skin rash to bilateral arms, legs and groin. Neuro Reports Normal hearing present, Denies confusion and Denies syncope Psych Denies confusion Endo Denies fatigue Physical exam (Primary Care) Vital Signs: Last Vital Signs Pulse 95 10/02/22 14:45 BP 142/90 H 10/02/22 14:45 Pulse Ox 100 10/02/22 14:45 Oxygen Delivery Method Room Air 10/02/22 14:45 BMI result Body Mass Index 21.9 Tobacco/Smoking Status: Tobacco use Status Tobacco use date assessed 10/02/22 10/02/22 14:57 Patient Tobacco Use Status Former Tobacco user 10/02/22 14:57 e-Cigarette/Vaping Use Never Used 10/02/22 14:57 Thrive Assessment: Date of Thrive Assessment Date Thrive assessed 09/15/21 10/02/22 14:57 Const General: No confusion Orientation/consciousness: No confusion HENMT Head: Yes normocephalic and Yes atraumatic Eyes Conjunctivae: conjunctivae normal Chest Chest palpation & inspection: normal inspection of the chest Resp Effort & Inspection: normal respiratory effort Auscultation: clear to auscultation bilaterally, no crackles, no rhonchi and no wheezes Cardio Rate: regular rate Rhythm: regular rhythm Heart sounds: S1 normal heart sound present and S2 normal heart sound present GI Inspection: Yes normal to inspection Skin Other: Scattered skin ulcerated lesions that range in size from pinpoint to nickel size on bilateral arms, legs. Patient also has erythema to groin and scrotum. No drainage noted. Neuro General: No confusion Cranial nerves: Yes Normal hearing present Extrem General: No edema Assessment and Plan Assessment & Plan (1) Groin rash: Code(s): R21 - Rash and other nonspecific skin eruption Plan: clotrimazole cream sent to patient's pharmacy. (2) Rash: Code(s): R21 - Rash and other nonspecific skin eruption Plan: Continue to follow with Dermatology. Continue to use steroid cream. Will request records from Dr. Mcbride office. Plan Keep scheduled follow-up with PCP or follow-up sooner if needed. Medications: New clotrimazole 1% 1 appl topical BID 15 grams 0RF R21 - Rash and other nonspecific skin eruption Coding Level of Care Code Est Pt Level 3 (05394) Diagnoses Groin rash R21 Rash R21
== END 2022-10-02 15:27 | disposition home or self-care (01) ==
PROVIDERS: PCP Physician Assistant; Visit Provider Nurse Practitioner Family
DX: R21 Rash and other nonspecific skin eruption (principal)
CPT/HCPCS: 99213

== ENCOUNTER 2022-10-07 11:29 | Emergency (ER) | payer OTHER, SELFPAY ==
--- NOTE | ~2022-10-07 | US_ITS ---
EXAMINATION: US SCROTUM CLINICAL INFORMATION: Testicular pain and swelling. COMPARISON: None available. TECHNIQUE: A sonogram of the scrotum was performed assessing gonzalez-scale appearance and color Doppler flow. Spectral Doppler analysis of the arterial and venous flow were performed in the testes bilaterally. FINDINGS: RIGHT: Right testicle measures 3.9 x 2.0 x 2.7 cm, volume 10.5 mL. No focal testicular parenchymal lesions are visualized. Spectral Doppler analysis of the arterial and venous flow is normal in the right testis. Right epididymal head is normal in size. No right varicocele is seen. Small right-sided hydrocele. Right epididymal Doppler flow is normal. LEFT: Left testicle measures 4.2 x 2.0 x 2.7 cm, volume 12.1 mL. No focal testicular parenchymal lesions are visualized. Spectral Doppler analysis of the arterial and venous flow is normal in the left testis. Left epididymal head is normal in size. No left varicocele is seen. Small left hydrocele. Left epididymal Doppler flow is increased may reflect elements of epididymitis. Correlation with symptomatology and physical exam. US/US scrotum IMPRESSION: 1. Bilateral testicular vascular flow visualized. 2. Small bilateral hydroceles. 3. Left epididymal Doppler flow is increased may reflect elements of epididymitis. Correlation with symptomatology and physical exam.
--- NOTE | ~2022-10-07 | US_ITS ---
EXAMINATION: US SCROTUM CLINICAL INFORMATION: Testicular pain and swelling. COMPARISON: None available. TECHNIQUE: A sonogram of the scrotum was performed assessing gonzalez-scale appearance and color Doppler flow. Spectral Doppler analysis of the arterial and venous flow were performed in the testes bilaterally. FINDINGS: RIGHT: Right testicle measures 3.9 x 2.0 x 2.7 cm, volume 10.5 mL. No focal testicular parenchymal lesions are visualized. Spectral Doppler analysis of the arterial and venous flow is normal in the right testis. Right epididymal head is normal in size. No right varicocele is seen. Small right-sided hydrocele. Right epididymal Doppler flow is normal. LEFT: Left testicle measures 4.2 x 2.0 x 2.7 cm, volume 12.1 mL. No focal testicular parenchymal lesions are visualized. Spectral Doppler analysis of the arterial and venous flow is normal in the left testis. Left epididymal head is normal in size. No left varicocele is seen. Small left hydrocele. Left epididymal Doppler flow is increased may reflect elements of epididymitis. Correlation with symptomatology and physical exam. US/US scrotum doppler IMPRESSION: 1. Bilateral testicular vascular flow visualized. 2. Small bilateral hydroceles. 3. Left epididymal Doppler flow is increased may reflect elements of epididymitis. Correlation with symptomatology and physical exam.
[2022-10-07 12:03] VITALS: BP 145/99; BP 152/100; PULSE 82; PULSE 95; RESP 16; TEMP 37.2; O2SAT 100; O2SAT 97; BMI 21.8
[2022-10-07 13:20] LABS: MANUAL DIFF FLAG NO
[2022-10-07 13:22] LABS: Basophils Absolute Auto 0.1 X10*3/uL (0.0-0.2); Basophils Percent Auto 0.9 % (0-2); Eosinophils Absolute Auto 0.1 X10*3/uL (0.0-0.4); Eosinophils Percent Auto 0.6 % (0-4); Hematocrit 34.9 % (42.0-52.0); Hemoglobin 11.1 g/dl (14.0-18.0); Imm Gran Abs Auto 0.02 X10*3/uL (0.00-0.03); Imm Gran Pct Auto 0.2 % (0.0-0.4); Lymphocytes Absolute Auto 1.9 X10*3/uL (1.2-4.9); Lymphocytes Percent Auto 21.2 % (20-40); Mean Corpuscular HGB Conc 31.8 g/dl (31.0-36.0); Mean Corpuscular Hemoglobin 26.1 pg (27.0-33.0); Mean Corpuscular Volume 81.9 fL (80.0-98.0); Mean Platelet Volume 8.9 fL (9.4-12.4); Monocytes Absolute Auto 0.6 X10*3/uL (0.1-1.2); Monocytes Percent Auto 6.4 % (2-11); Neutrophils Absolute Auto 6.4 x10*3/uL (2.0-8.3); Neutrophils Percent Auto 70.7 % (45-73); Platelet Count 369 X10*3/uL (160-400); Red Blood Count 4.26 X10*6/uL (4.60-5.80); Red Cell Distribution Width 13.8 % (11.0-16.0)
[2022-10-07 13:41] LABS: Alanine Aminotransferase 16 U/L (0-40); Albumin Level 4.3 g/dL (3.5-5.0); Alkaline Phosphatase 65 U/L (39-117); Anion Gap 14 (12-20); Aspartate Amino Transferase 27 U/L (5-37); Bilirubin Direct 0.1 mg/dL (0.0-0.5); Bilirubin Total 0.3 mg/dL (0.0-1.0); Blood Urea Nitrogen 8 mg/dL (9-16); Carbon Dioxide 31 mmol/L (22-29); Chloride 103 mmol/L (96-108); Estimated Glomerular Filt Rate > 60; Glucose Random 85 mg/dL (60-115); Sodium 143 mmol/L (135-145); Total Protein 7.5 g/dL (6.5-8.0)
[2022-10-07 14:26] LABS: Syphilis Screen Nonreactive (Nonreactive)
--- NOTE | 2022-10-07 14:31 | ED_ITS ---
HPI - Skin/Abscess/Foreign Bdy General Chief complaint: Skin/Abscess/Foreign Body Stated complaint: Rash on scrotum/penis/buttocks per EMS Time Seen by Provider: 10/07/22 11:50 Source: patient and RN notes reviewed Mode of arrival: ambulatory Limitations: no limitations History of Present Illness HPI narrative: This is a [id number], with a ahx of chronic hepatitis C aand relapsing polychondritis, presenting to the emergency department with complaints of burning genitalial rash x 4 weeks. Pt states that he has had similar rashes in the past but never to this extent. He denies fevers, chills, chest pain, SOB. He denies urinary symptoms. He is not sexually active. No fevers or chills. No urinary symptoms. Penile discharge. No other complaints or concerns at this time. MD complaint: rash Quality: burning Pain Consistency: constant Relieving factors: none Exacerbating factors: none Context: none Associated symptoms: denies other symptoms Treatments prior to arrival: none Related Data Home Medications Medication Instructions Recorded Confirmed cholecalciferol (vitamin D3) 125 125 mcg PO DAILY 06/30/21 08/17/22 mcg (5,000 unit) tablet (Vitamin D3) gabapentin 300 mg capsule 300 mg PO TID 06/30/21 08/17/22 methadone 10 mg/mL oral concentrate 60 mg PO DAILY 02/16/22 08/17/22 triamcinolone acetonide 0.1 % 1 appl topical DAILY 02/16/22 08/17/22 topical cream chlorhexidine gluconate 4 % 1 appl topical ONCE 02/26/22 08/17/22 topical liquid (Antiseptic Skin Cleanser (chlorhexidine)) alcohol swabs (Alcohol Prep Pads) pad topical 04/24/22 08/17/22 Previous Rx's Medication Instructions Recorded folic acid 1 mg tablet 1 mg PO DAILY 90 days #90 tabs 02/23/22 peg-electrolyte solution 420 gram 240 ml PO Q10M #2,000 mL 03/03/22 oral solution ondansetron 4 mg disintegrating 4 mg PO Q6H #30 tabs 03/17/22 tablet buspirone 10 mg tablet 10 mg PO TID 30 days #90 tabs 06/08/22 pantoprazole 40 mg tablet,delayed 40 mg PO DAILY 90 days #90 tabs 08/11/22 release clotrimazole 1 % topical cream 1 appl topical BID #15 grams 10/02/22 cephalexin 500 mg capsule 500 mg PO BID 10 days #20 caps 10/07/22 fluconazole 150 mg tablet 150 mg PO QWEEK 4 weeks #4 tabs 10/07/22 permethrin 5 % topical cream 1 appl topical Q14D 2 doses #60 10/08/22 grams Allergies Allergy/AdvReac Type Severity Reaction Status Date / Time No Known Allergies Allergy Verified 10/02/22 14:48 Review of Systems Review of Systems: Yes all other systems are reviewed and are negative Constitutional: Constitutional: Reports as per [facility] Past Medical History Medical History (Updated 10/08/22 @ 00:08 by [place] Araujo) Annual physical exam Hepatitis Hx of opioid abuse Low blood pressure Prolapsed hemorrhoids Surgical History H/O colonoscopy History of esophagogastroduodenoscopy (EGD) History of surgery on wrist Family History Family History Father History of cancer Cancer of prostate Mother No problems noted. Brother Cancer of prostate Other Mental problem Substance abuse Social History Social History Household Members: Family Housing: Apartment Are you a primary care trainer to a significant other at home: No Do you presently have visiting nurse or other home services: No Alcohol intake: never Patient Tobacco Use Status: Former Tobacco user Cigarettes Per Day: 1 e-Cigarette/Vaping Use: Never Used Second Hand Smoke Exposure: No Substance Use Type: Former Substance User, Heroin, Marijuana, Methamphetamine and Other Advance Directives: No Advance Directives Information Provided: No service: No Current occupational status: unemployed Cognitive needs: No Hearing needs: No Vision needs: No Physical Exam Vital Signs: Vital Signs: Last Vital Signs Temp 98.9 F 10/07/22 12:03 Pulse 82 10/07/22 12:03 Resp 16 10/07/22 12:03 BP 145/99 H 10/07/22 12:03 Pulse Ox 97 10/07/22 12:03 O2 Del Method Room Air 10/07/22 12:03 BMI result Body Mass Index 21.8 Const: General: cooperative, comfortable and no acute distress Orientation/consciousness: patient oriented x3 Limitations: no limitations HEENT: Head: Yes normal to inspection, Yes normocephalic and Yes atraumatic Ears: hearing grossly normal bilaterally General nose exam: Normal external nose present Face and sinus: Yes normal facial exam Mouth: Normal oral and palatal mucosa present, oropharynx normal and moist mucous membranes Throat: Yes posterior oropharynx normal Eyes: General: appearance normal, both eyes and all related structures Eyelids: Yes eyelids normal Conjunctivae: conjunctivae normal Sclerae: sclerae normal Pupils: Equal, round and reactive pupils present EOM: EOMs intact bilaterally Neck: Neck: Yes normal visual inspection, Yes full ROM and Yes no lymphadenopathy Lymphatic: no lymphadenopathy noted Chest: Chest palpation & inspection: normal inspection of the chest Resp: Effort & Inspection: normal respiratory effort and able to speak in complete sentences Auscultation: clear to auscultation bilaterally, no crackles, no rales, no rhonchi and no wheezes Cardio: Rate: regular rate Rhythm: regular rhythm Heart sounds: S1 normal heart sound present and S2 normal heart sound present GI: Inspection: Yes normal to inspection : Other: Examination performed with preschool adviser Kaia Da Silva PA-C, who was present during entire encounter. beefy red, mildly warm scrotum and testies that are mildly ttp. No palpable abscess appreciated. Beefy, red erythemaatous skin extends up entire gluteal cleft. Skin: General skin exam: no rashes or lesions noted Trauma: no lacerations or abrasions Wounds: no wounds Neuro: General: patient oriented x3 and moves all extremities Cranial n erves: Yes Equal, round and reactive pupils present Extrem: General: Yes normal to inspection Right upper extremity: normal to inspection Left upper extremity: normal to inspection Right lower extremity: normal to inspection Left lower extremity: normal to inspection Course Reevaluation(s) Reevaluation #1: Patient has no leukocytosis stable H&H. Patient eloped pending ultrasound. Time: 14:36 Reevaluation #2: Ultrasound returned, suspicious for epididymitis. Called and spoke to on a patient has not been sexually active last 2 years. Given pt is not sexually active, gonorrhea and chlamydia are unlikely, will not treat with doxycycline or ceftriaxone, rather treat with Keflex to cover for E coli. Rash also appears to be fungal, sent fluconazole. Urged the importance of returning if symptoms do not improve or worsens. Pt and aunt understand and agree with plan. Medical Decision Making Medical Decision Making [facility] Narrative: 42 y/o M presenting to the emergency department for genitalial rash x 4 weeks. On arrival, pt is afebrile. Exam concerning for tinea cruris vs cellulitis, vs abscess. Labs, UA, US ordered. Differential Diagnosis Differential Diagnoses: The differential diagnosis associated with the presentation includes See above Lab Data [facility] Lab Attestation statement: I reviewed the patient's lab results. 10/07/22 13:14 10/07/22 13:14 Labs: Lab Results 10/07/22 10/07/22 10/07/22 Range/Units 13:14 13:14 13:14 WBC 9.0 (4.8-10.8) X10*3/uL RBC 4.26 L (4.60-5.80) X10*6/uL Hgb 11.1 L (14.0-18.0) g/dl Hct 34.9 L (42.0-52.0) % MCV 81.9 (80.0-98.0) fL MCH 26.1 L (27.0-33.0) pg MCHC 31.8 (31.0-36.0) g/dl RDW 13.8 (11.0-16.0) % Plt Count 369 (160-400) X10*3/uL MPV 8.9 L (9.4-12.4) fL Immature Gran % (Auto) 0.2 (0.0-0.4) % Neut % (Auto) 70.7 (45-73) % Lymph % (Auto) 21.2 (20-40) % Ripley % (Auto) 6.4 (2-11) % Eos % (Auto) 0.6 (0-4) % Baso % (Auto) 0.9 (0-2) % Lymph # (Auto) 1.9 (1.2-4.9) X10*3/uL Ripley # (Auto) 0.6 (0.1-1.2) X10*3/uL Eos # (Auto) 0.1 (0.0-0.4) X10*3/uL Baso # (Auto) 0.1 (0.0-0.2) X10*3/uL Abs Immat Gran (auto) 0.02 (0.00-0.03) X10*3/uL Absolute Neuts (auto) 6.4 (2.0-8.3) x10*3/uL Absolute Nucleated RBC 0.000 (0.0-0.012) X10*3/uL Nucleated RBC % (auto) 0.0 (0.0-0.2) /100WBC Sodium 143 (135-145) mmol/L Potassium 5.0 (3.3-5.1) mmol/L Chloride 103 (96-108) mmol/L Carbon Dioxide 31 H (22-29) mmol/L Anion Gap 14 (12-20) BUN 8 L (9-16) mg/dL Creatinine 0.87 (0.5-1.4) mg/dL Estim Creat Clear Calc 96.0 Estimated GFR > 60 Random Glucose 85 (60-115) mg/dL Calcium 10.0 (8.4-10.2) mg/dL Total Bilirubin 0.3 (0.0-1.0) mg/dL Direct Bilirubin 0.1 (0.0-0.5) mg/dL AST 27 (5-37) U/L ALT 16 (0-40) U/L Alkaline Phosphatase 65 (39-117) U/L Total Protein 7.5 (6.5-8.0) g/dL Albumin 4.3 (3.5-5.0) g/dL Urine Color Urine Appearance Urine pH (5.0-9.0) Ur Specific [place] (1.005-1.025) Urine Protein (Neg-Trace) mg/dL Urine Glucose (UA) (Negative) mg/dL Urine Ketones (Negative) mg/dL Urine Blood (Negative) Urine Nitrite (Negative) Ur Leukocyte Esterase (Negative) T.pallidum Ab (EIA) Nonreactive (Nonreactive) 10/07/22 Range/Units 14:27 WBC (4.8-10.8) X10*3/uL RBC (4.60-5.80) X10*6/uL Hgb (14.0-18.0) g/dl Hct (42.0-52.0) % MCV (80.0-98.0) fL MCH (27.0-33.0) pg MCHC (31.0-36.0) g/dl RDW (11.0-16.0) % Plt Count (160-400) X10*3/uL MPV (9.4-12.4) fL Immature Gran % (Auto) (0.0-0.4) % Neut % (Auto) (45-73) % Lymph % (Auto) (20-40) % Ripley % (Auto) (2-11) % Eos % (Auto) (0-4) % Baso % (Auto) (0-2) % Lymph # (Auto) (1.2-4.9) X10*3/uL Ripley # (Auto) (0.1-1.2) X10*3/uL Eos # (Auto) (0.0-0.4) X10*3/uL Baso # (Auto) (0.0-0.2) X10*3/uL Abs Immat Gran (auto) (0.00-0.03) X10*3/uL Absolute Neuts (auto) (2.0-8.3) x10*3/uL Absolute Nucleated RBC (0.0-0.012) X10*3/uL Nucleated RBC % (auto) (0.0-0.2) /100WBC Sodium (135-145) mmol/L Potassium (3.3-5.1) mmol/L Chloride (96-108) mmol/L Carbon Dioxide (22-29) mmol/L Anion Gap (12-20) BUN (9-16) mg/dL Creatinine (0.5-1.4) mg/dL Estim Creat Clear Calc Estimated GFR Random Glucose (60-115) mg/dL Calcium (8.4-10.2) mg/dL Total Bilirubin (0.0-1.0) mg/dL Direct Bilirubin (0.0-0.5) mg/dL AST (5-37) U/L ALT (0-40) U/L Alkaline Phosphatase (39-117) U/L Total Protein (6.5-8.0) g/dL Albumin (3.5-5.0) g/dL Urine Color Yellow Urine Appearance Clear Urine pH 6.5 (5.0-9.0) Ur Specific [place] 1.010 (1.005-1.025) Urine Protein Negative (Neg-Trace) mg/dL Urine Glucose (UA) Negative (Negative) mg/dL Urine Ketones Negative (Negative) mg/dL Urine Blood Negative (Negative) Urine Nitrite Negative (Negative) Ur Leukocyte Esterase Negative (Negative) T.pallidum Ab (EIA) (Nonreactive) Radiology Impression Discussion of test interpretation with radiology: I have reviewed the radiologist's reading. Radiologist Impression: EXAMINATION: US SCROTUM CLINICAL INFORMATION: Testicular pain and swelling. COMPARISON: None available. TECHNIQUE: A sonogram of the scrotum was performed assessing gonzalez-scale appearance and color Doppler flow. Spectral Doppler analysis of the arterial and venous flow were performed in the testes bilaterally. FINDINGS: RIGHT: Right testicle measures 3.9 x 2.0 x 2.7 cm, volume 10.5 mL. No focal testicular parenchymal lesions are visualized. Spectral Doppler analysis of the arterial and venous flow is normal in the right testis. Right epididymal head is normal in size. No right varicocele is seen. Small right-sided hydrocele. Right epididymal Doppler flow is normal. LEFT: Left testicle measures 4.2 x 2.0 x 2.7 cm, volume 12.1 mL. No focal testicular parenchymal lesions are visualized. Spectral Doppler analysis of the arterial and venous flow is normal in the left testis. Left epididymal head is normal in size. No left varicocele is seen. Small left hydrocele. Left epididymal Doppler flow is increased may reflect elements of epididymitis. Correlation with symptomatology and physical exam. US/US scrotum IMPRESSION: 1.? Bilateral testicular vascular flow visualized. 2.? Small bilateral hydroceles. 3.? Left epididymal Doppler flow is increased may reflect elements of epididymitis. Correlation with symptomatology and physical exam. ? Dictated By: Bob Hoffman MD Prescription Management I considered prescription management with: Antibiotic Discharge Plan Discharge Clinical Impression: Tinea cruris Patient Disposition: Elopement Instructions: Jock Itch (ED), Skin Yeast Infection (ED) Prescriptions: New fluconazole 150 mg tablet 150 mg PO QWEEK 28 Days Qty: 4 0RF cephalexin 500 mg capsule 500 mg PO BID 10 Days Qty: 20 0RF No Action folic acid 1 mg tablet 1 mg PO DAILY 90 Days Qty: 90 1RF peg-electrolyte soln 420 gram recon soln 240 ml PO Q10M Qty: 2000 0RF Rx Instructions: until fecal effluent is clear; do not exceed a total volume of 2,000 mL ondansetron 4 mg tablet,disintegrating 4 mg PO Q6H Qty: 30 2RF buspirone 10 mg tablet 10 mg PO TID 30 Days Qty: 90 6RF pantoprazole 40 mg tablet,delayed release (DR/EC) 40 mg PO DAILY 90 Days Qty: 90 3RF permethrin 5 % cream 1 appl topical Q14D Qty: 60 3RF Rx Instructions: apply second treatment 14 days after first treatment if live lice remain chlorhexidine gluconate [Antiseptic Skin Clnsr(chlorhe)] 4 % liquid 1 appl topical ONCE methadone 10 mg/mL concentrate 60 mg PO DAILY clotrimazole 1 % cream 1 appl topical BID Qty: 15 0RF gabapentin 300 mg capsule 300 mg PO TID cholecalciferol (vitamin D3) [Vitamin D3] 125 mcg (5,000 unit) tablet 125 mcg PO DAILY triamcinolone acetonide 0.1 % cream 1 appl topical DAILY alcohol swabs [Alcohol Prep Pads] Pads, Medicated topical Interventions: ED Discharge Assessment Last Done: 10/07/22 15:16 Discharge Date/Time: 10/07/22 15:16
[2022-10-07 14:42] LABS: Appearance Urine Clear; Color Urine Yellow; Glucose Urine UA Negative (Negative); Leukocyte Esterase Urine Negative (Negative); Nitrite Urine Negative (Negative); PH 6.5 (5.0-9.0); Urine Blood Negative (Negative); Urine Ketones Negative (Negative); Urine Protein Negative (Neg-Trace)
== END 2022-10-07 15:16 | disposition left against medical advice (07) ==
PROVIDERS: Physician Assistant Medical; Emergency Provider Student in an Organized Health Care Education/Training Program; PCP Physician Assistant
DX: B35.6 Tinea cruris (principal); N50.82 Scrotal pain; R10.2 Pelvic and perineal pain; Z79.899 Other long term (current) drug therapy; Z87.891 Personal history of nicotine dependence
CPT/HCPCS: 36415; 76870; 80048; 80076; 81003; 85025; 86780; 93975; 99282; 99284

== ENCOUNTER 2022-10-08 15:32 | Emergency (ER) | payer OTHER, SELFPAY | END 2022-10-08 16:37 | disposition left against medical advice (07) | PROVIDERS: Emergency Provider Emergency Medicine; PCP Physician Assistant | DX: B35.6 Tinea cruris (principal) ==

== ENCOUNTER 2022-10-12 15:09 | Outpatient (AMB) | payer OTHER, SELFPAY ==
--- NOTE | 2022-10-12 15:10 | MHC.PC.OV ---
Vital Signs 10/12/22 15:11 Height 5 ft 6 in Weight 142 lb 8 oz BMI 23.0 Pulse 82 Pulse Source Pulse Oximeter Pulse Oximetry (%) 100 Oxygen Delivery Method Room Air Intake Visit Reasons: inflammation in groin area severe pain Allergies hydroxyzine Adverse Reaction (Intermediate, Verified 10/12/22 16:01) OCD isopropyl alcohol Adverse Reaction (Intermediate, Verified 10/12/22 15:45) Hives Medication List - Last Reconciled 10/12/22 by Blas Ingram PA-C alcohol swabs (Alcohol Prep Pads) pad topical buspirone 10 mg PO TID 30 days cephalexin 500 mg PO BID 10 days clotrimazole 1% 1 appl topical BID fluconazole 150 mg PO QWEEK 4 weeks gabapentin 300 mg PO TID methadone 60 mg PO DAILY ondansetron 4 mg PO Q6H pantoprazole 40 mg PO DAILY 90 days permethrin 5% 1 appl topical Q14D 2 doses triamcinolone acetonide 0.1% 1 appl topical DAILY Tobacco use date assessed: 10/02/22 HPI inflammation in groin area severe pain HPI Details Patient is a 42-year-old male here today for an ER follow-up visit. Was seen for acute groin pain and inflammation. He was given antifungals and antibiotics. 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 Currently has major erythema and inflammation in the groin, antecubital regions and between buttocks. Reports has getting somewhat better with antibiotics at this time. Was told not to start steroids. Currently still has unclear diagnosis of his dermatological disease. 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 Family wondering if he has an infectious disease as well. 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 [facility] Medical History Annual physical exam Hepatitis Hx of opioid abuse Low blood pressure Prolapsed hemorrhoids Surgical History H/O colonoscopy History of esophagogastroduodenoscopy (EGD) History of surgery on wrist Family History Father History of cancer Cancer of prostate Mother No problems noted. Brother Cancer of prostate Other Mental problem Substance abuse Social History Household Members: Family Housing: Apartment Are you a primary care management associate to a significant other at home: No Do you presently have visiting nurse or other home services: No Alcohol intake: never Patient Tobacco Use Status: Former Tobacco user Cigarettes Per Day: 1 e-Cigarette/Vaping Use: Never Used Second Hand Smoke Exposure: No Substance Use Type: Former Substance User, Heroin, Marijuana, Methamphetamine and Other service: No Current occupational status: unemployed Cognitive needs: No Hearing needs: No Vision needs: No Questionnaire PHQ-9 Over the last 2 weeks, how often have you been bothered by any of the following problems? 1. Little interest or pleasure in doing things: not at all 2. Feeling down, depressed, or hopeless: not at all 3. Trouble falling or staying asleep, or sleeping too much: not at all 4. Feeling tired or having little energy: not at all 5. Poor appetite or overeating: not at all 6. Feeling bad about yourself - or that you are a failure or have let yourself or your family down: not at all 7. Trouble concentrating on things, such as reading the newspaper or watching television: not at all 8. Moving or speaking so slowly that other people could have noticed. Or the opposite - being so fidgety or restless that you have been moving around a lot more than usual: not at all 9. Thoughts that you would be better off or of hurting yourself in some way: not at all Total score: 0 Depression Screening Interpretation: Negative Source: Developed by Drs. Elgin Davis, Idalia Schulz, Mukesh Bro and colleagues, with an educational stanford from [employer]. Thrive Questionnaire Date Thrive assessed: 10/12/22 I am a: Patient What is your living situation today?: I have a steady place to live Within the past 12 months, did the food you bought not last and you didn't have the money to get more?: Never true Within the past 12 months, did you worry whether your food would run out before you got money to buy more?: Never true Do you have trouble paying for medicines?: No Do you have trouble getting transportation to medical appointments?: No Do you have trouble paying your heating and electricity bill?: No Do you have trouble taking care of your child, family member or friend?: No Do you have trouble with day-to-day activities such as bathing, preparing meals, shopping, managing finances, etc.?: No Are you currently unemployed and looking for a job?: No Are you interested in more education?: No AUDIT C Alcohol Use Questionnaire (AUDIT-C) 1. How often do you have a drink containing alcohol?: Never 3. How often do you have six or more drinks on one occasion?: Never Total Score: 0 ADRIAN-7 AMB Questionnaire ADRIAN-7 Date ADRIAN - 7 assessed: 10/12/22 Feeling nervous, anxious, or on edge: 3 = Nearly every day Not being able to stop or control worryin = Nearly every day Worrying too much about different things: 1 = Several days Trouble relaxin = Nearly every day Being so restless that it is hard to sit still: 2 = More than half the days Becoming easily annoyed or irritable: 3 = Nearly every day Feeling afraid as if something awful might happen: 0 = Not at all Total ADRIAN-7 score (0-4 normal; 5-9 mild; 10-14 moderate; 15-21 severe): 15 Source: Developed by Drs. Elgin Davis, Idalia Schulz, Mukesh Bro and colleagues, with an educational stanford from [employer]. Review of Systems Const Denies headache(s) Eyes Denies loss of vision ENT Denies vertigo, Denies dizziness, Denies headache(s) and Denies sore throat Card Denies chest pain, Denies leg edema and Denies lightheadedness Resp Denies cough, Denies hemoptysis and Denies wheezing GI Denies abdominal pain, Denies melena, Denies constipation, Denies diarrhea and Denies vomiting Denies dysuria, Denies urinary frequency and Denies urinary urgency Musc Denies arthralgias, Denies joint swelling, Denies numbness and Denies tingling Skin/Breast Reports rash, Reports skin pain and Reports sores Neuro Denies Abnormal speech present, Denies behavioral changes, Denies vertigo, Denies dizziness, Denies headache(s), Denies loss of vision, Denies memory loss, Denies numbness and Denies tingling Psych Reports anxiety, Denies behavioral changes, Denies depression, Denies memory loss and Denies panic attacks Mike/Lymph Denies easy bleeding and Denies easy bruising Aller/Immun Denies wheezing Physical exam (Primary Care) Vital Signs: Last Vital Signs Pulse 82 10/12/22 15:11 Pulse Ox 100 10/12/22 15:11 Oxygen Delivery Method Room Air 10/12/22 15:11 BMI result Body Mass Index 23.0 Tobacco/Smoking Status: Tobacco use Status Tobacco use date assessed 10/02/22 10/12/22 15:11 Patient Tobacco Use Status Former Tobacco user 10/12/22 15:11 e-Cigarette/Vaping Use Never Used 10/12/22 15:11 PHQ-9: PHQ-9 Score PHQ-9: Total score 0 10/12/22 15:46 Depression Screening Interpretation: Negative Thrive Assessment: Date of Thrive Assessment Date Thrive assessed 10/12/22 10/12/22 15:14 Const General: healthy appearing, no acute distress, alert and awake Nutritional Appearance: well nourished Orientation/consciousness: oriented to person, oriented to place and oriented to time HENMT Ears: TM's normal bilaterally General nose exam: Normal nasal mucous membranes and turbinates present Eyes Conjunctivae: conjunctivae normal Sclerae: sclerae normal Pupils: Equal, round and reactive pupils present Neck Neck: Yes no lymphadenopathy and Yes no JVD Thyroid: Thyroid normal Carotids: no bruits Resp Effort & Inspection: normal respiratory effort and not tachypneic Auscultation: no crackles, no rales, no rhonchi and no wheezes Cardio Rate: regular rate Rhythm: regular rhythm Heart sounds: no murmurs and normal S1 and S2 GI Palpation (GI): Soft to palpation, nontender, no hepatomegaly and no splenomegaly Auscultation: normal bowel sounds Skin Other: WIDESPREAD SKIN ULCERATIONS OVER UPPER EXTREMITIES, LOWER EXTREMITIES BACK AND TORSO. ALSO HAS DEVELOPED MODERATE TO SEVERE ERYTHEMA OVER THE GROIN AND INNER THIGH ALONG WITH THE ANTECUBITAL REGIONS. General skin exam: dry skin Neuro General: oriented to person, oriented to place and oriented to time Cranial nerves: Yes Equal, round and reactive pupils present Speech: No Abnormal speech present Gait exam (Neuro): Normal gait present Motor exam (neuro): no tremor noted Extrem Right upper extremity: full ROM Left upper extremity: full ROM Right lower extremity: full ROM; no edema Left lower extremity: full ROM; no edema Psych Mental Status: mental status grossly normal Speech and movement: Normal speech and movement present Affect: normal affect Attitude: cooperative Thought process: Normal thought process present Assessment and Plan Assessment & Plan (1) Groin rash: Code(s): R21 - Rash and other nonspecific skin eruption Plan: Unclear etiology to patient's dermatological condition at this time. Seems to have ? Cellulitis in the groin at this time . Advised on ER evaluation and possible IV antibiotics though patient unwilling to do so. Will continue p.o. antibiotics. 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 Unclear if his widespread sores are from infectious etiology thus will refer to Infectious Disease specialist for evaluation. 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 Thus far diagnosis unclear Orders: Referrals Infectious Disease Referral R21 - Rash and other nonspecific skin eruption Medications: Refilled cephalexin 500 mg PO BID 10 days 20 caps 0RF R21 - Rash and other nonspecific skin eruption Coding Level of Care Code Est Pt Level 3 (87058) Diagnoses Groin rash R21
[2022-10-12 15:11] VITALS: PULSE 82; O2SAT 100; BMI 23.0
== END 2022-10-12 16:15 | disposition home or self-care (01) ==
PROVIDERS: PCP Physician Assistant; Visit Provider Physician Assistant
DX: R21 Rash and other nonspecific skin eruption (principal)
CPT/HCPCS: 99213

== ENCOUNTER 2022-10-26 10:59 | Outpatient (AMB) | payer OTHER, SELFPAY ==
--- NOTE | 2022-10-26 11:01 | MHC.OFFVIS ---
Intake Vital Signs 10/26/22 11:06 Height 5 ft 5 in Weight 147 lb BMI 24.5 BP 146/88 H Blood Pressure Location Lt brachial Position Sitting Pulse 91 Pulse Source Pulse Oximeter Pulse Oximetry (%) 99 Intake Visit Reasons: Ref.,rash, nonspecific skin eruption Allergies hydroxyzine Adverse Reaction (Intermediate, Verified 10/26/22 11:13) OCD isopropyl alcohol Adverse Reaction (Intermediate, Verified 10/26/22 11:13) Hives HPI Ref.,rash, nonspecific skin eruption HPI Details He comes in today with his mother. He has had itchy sores over body and skin lesion penis. He has no fever or chills at this time. He denies current OUD although says former girlfriend of overdose. [facility] Medical History (Updated 10/28/22 @ 15:02 by Katiuska Anderson MD) Annual physical exam Hepatitis Hx of opioid abuse Low blood pressure Prolapsed hemorrhoids Skin lesions Surgical History H/O colonoscopy History of esophagogastroduodenoscopy (EGD) History of surgery on wrist Family History Father History of cancer Cancer of prostate Mother No problems noted. Brother Cancer of prostate Other Mental problem Substance abuse Social History Household Members: Family Housing: Apartment Are you a primary acute care nurse to a significant other at home: No Do you presently have visiting nurse or other home services: No Alcohol intake: never Patient Tobacco Use Status: Former Tobacco user Cigarettes Per Day: 1 e-Cigarette/Vaping Use: Never Used Second Hand Smoke Exposure: No Substance Use Type: Former Substance User, Heroin, Marijuana, Methamphetamine and Other service: No Current occupational status: unemployed Cognitive needs: No Hearing needs: No Vision needs: No Review of Systems Const All systems reviewed & are unremarkable except as noted in HPI and below Physical Exam Vital Signs: Last Vital Signs Pulse 91 10/26/22 11:06 BP 146/88 H 10/26/22 11:06 Pulse Ox 99 10/26/22 11:06 BMI result Body Mass Index 24.5 Const Other: General: cooperative Orientation/consciousness: patient oriented x3 HEENT Head: Yes normal to inspection Mouth: Normal oral and palatal mucosa present Eyes General: appearance normal, both eyes and all related structures Pupils: Equal, round and reactive pupils present Resp Effort & Inspection: normal respiratory effort Cardio Rate: regular rate Rhythm: regular rhythm GI Palpation (GI): Soft to palpation and nontender General: Yes no CVA tenderness Back/Spine/Pelvis Back: no CVA tenderness Skin Other: rashes with areas over all body penis area shallow ulcer,viewed and is painful (mother in room) Neuro General: patient oriented x3 Cranial nerves: Yes CN's II-XII intact bilaterally and Yes Equal, round and reactive pupils present Extrem General: Yes normal to inspection Psych Appearance: grossly normal Assessment & Plan Assessment & Plan (1) 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 It doesnt look like porphyria which can be associated with Hepatitis C. Also neurodermatitis,looks like area picked at as well by patient. Herpes simplex possible groin area (HIV and syphilis negative) Also opioid or other drug use such as xylazine or MRSA can cause ulcers (no response to antibiotics) and denies drug use. Code(s): F11.20 - Opioid dependence, uncomplicated Qualifiers: Substance use status: uncomplicated Qualified Code(s): F11.20 - Opioid dependence, uncomplicated Plan: Would give po Valtrex as directed. If genital lesions heal would then give preventive Valtrex 1 g daily. He will call and let us know. Further evaluation ulcers per Rheumatology ?biopsy or other serologic tests. See us again only if using skilled nursing Valtrex suppression. (3) Skin lesions: Code(s): L98.9 - Disorder of the skin and subcutaneous tissue, unspecified Medications: New valacyclovir (Valtrex) 1,000 mg PO Q8H 5 days 15 tabs 0RF Coding Level of Care Code New Pt Level 3 (00981) Diagnoses Relapsing polychondritis M94.1 Opiate dependence F11.20 Substance use status: uncomplicated Skin lesions L98.9
[2022-10-26 11:06] VITALS: BP 146/88; PULSE 91; O2SAT 99; BMI 24.5
== END 2022-10-26 11:58 | disposition home or self-care (01) ==
LOC: HO.HID 10:59
PROVIDERS: PCP Physician Assistant; Visit Provider Internal Medicine
DX: M94.1 Relapsing polychondritis (principal); F11.20 Opioid dependence, uncomplicated; L98.9 Disorder of the skin and subcutaneous tissue, unspecified
CPT/HCPCS: 99203

== ENCOUNTER → 2022-10-26 10:59 | Outpatient (BNVA) | payer OTHER, SELFPAY | PROVIDERS: PCP Physician Assistant; Visit Provider Internal Medicine | DX: M94.1 Relapsing polychondritis (principal); L98.9 Disorder of the skin and subcutaneous tissue, unspecified; F11.20 Opioid dependence, uncomplicated | CPT/HCPCS: 99202 ==

== ENCOUNTER 2023-02-01 14:14 | Outpatient (AMB) | payer OTHER, SELFPAY ==
--- NOTE | 2023-02-01 14:17 | MHC.PC.OV ---
Vital Signs 02/01/23 14:18 Height 5 ft 5 in Weight 159 lb 4 oz BMI 26.5 BP 136/90 H Blood Pressure Location Lt brachial Position Sitting Pulse 60 Pulse Source Pulse Oximeter Pulse Oximetry (%) 98 Oxygen Delivery Method Room Air Intake Visit Reasons: 3M Follow up f/u chronic diarrhea Tile Helper Required: No Accompanied by: Other Relationship Allergies hydroxyzine Adverse Reaction (Intermediate, Verified 02/01/23 14:31) OCD isopropyl alcohol Adverse Reaction (Intermediate, Verified 02/01/23 14:31) Hives Medication List - Last Reconciled 02/01/23 by Blas Ingram PA-C alcohol swabs (Alcohol Prep Pads) pad topical buspirone 10 mg PO TID 30 days cephalexin 500 mg PO BID 7 days chlorhexidine gluconate 4% (Antiseptic Skin Cleanser (chlorhexidine)) topical fluconazole 150 mg PO QWEEK 4 weeks gabapentin 300 mg PO TID methadone 60 mg PO DAILY ondansetron 4 mg PO Q6H pantoprazole 40 mg PO DAILY 90 days permethrin 5% 1 appl topical Q14D 2 doses valacyclovir (Valtrex) 1,000 mg PO Q8H 5 days Tobacco use date assessed: 10/02/22 Dental Screening Dental Screen Date: 02/01/23 Did you have a dental visit in the last 12 months?: Yes Did you have a dental problem in the last 6 months where you did not have access to dental care?: No Was dental information given to patient?: Patient has dentist HPI 3M Follow up f/u chronic diarrhea HPI Details Patient is a 42-year-old male here today for six-month follow-up visit. Patient's past history significant for opiate dependency, history of hep C, generalized anxiety disorder, ? Polychondritis .. He is followed by gastroenterology and has not been given any formal diagnosis for his chronic diarrhea. He reports he has been taking a lot of Imodium and his GI symptoms have been a bit better overall over the last 3 months. Has gained weight since last office visit Polychondritis: Has seen blood typer and was given diagnosis of relapsing polychondritis . He has been started on Plaquenil for his autoimmune disease though has not been able to tolerate due to GI side effects. Interested in a 2nd opinion rheumatology and [facility] . Continues to have in manifestations thought to be due to his polychondritis. No one else in his household with skin manifestations. He has seen multiple dermatologists and reports getting skin biopsies without a clear diagnosis. Continues on gabapentin 300 mg t.i.d. for his skin and joint related pains. . Opiate dependency: Continues on methadone clinic. Per patient he reports he continues to stay sober from street drugs. Of note in April 2022 did have positive fentanyl, cocaine and urine drug screen. * He does admit to taking Percocet at times for his abdominal/ joint pains [facility] Medical History (Updated 02/01/23 @ 14:38 by Blas Ingram PA-C) Skin lesions Annual physical exam Prolapsed hemorrhoids Hx of opioid abuse Low blood pressure Hepatitis Surgical History History of esophagogastroduodenoscopy (EGD) H/O colonoscopy History of surgery on wrist Family History Father History of cancer Cancer of prostate Mother No problems noted. Brother Cancer of prostate Other Mental problem Substance abuse Social History Household Members: Family Housing: Apartment Are you a primary rn critical care to a significant other at home: No Do you presently have visiting nurse or other home services: No Alcohol intake: never Patient Tobacco Use Status: Former Tobacco user Cigarettes Per Day: 1 e-Cigarette/Vaping Use: Never Used Second Hand Smoke Exposure: No Substance Use Type: Former Substance User, Heroin, Marijuana, Methamphetamine and Other service: No Current occupational status: unemployed Cognitive needs: No Hearing needs: No Vision needs: No Questionnaire Thrive Questionnaire Date Thrive assessed: 10/12/22 ADRIAN-7 AMB Questionnaire ADRIAN-7 Date ADRIAN - 7 assessed: 10/12/22 Source: Developed by Drs. Elgin Davis, Idalia Schulz, Mukesh Bro and colleagues, with an educational stanford from [employer]. Review of Systems Const Denies headache(s) Eyes Denies loss of vision ENT Denies vertigo, Denies dizziness, Denies headache(s) and Denies sore throat Card Denies chest pain, Denies leg edema and Denies lightheadedness Resp Denies cough, Denies hemoptysis and Denies wheezing GI Denies abdominal pain, Denies melena, Denies constipation, Denies diarrhea and Denies vomiting Denies dysuria, Denies urinary frequency and Denies urinary urgency Musc Denies arthralgias, Denies joint swelling, Denies numbness and Denies tingling Neuro Denies Abnormal speech present, Denies behavioral changes, Denies vertigo, Denies dizziness, Denies headache(s), Denies loss of vision, Denies memory loss, Denies numbness and Denies tingling Psych Denies anxiety, Denies behavioral changes, Denies depression, Denies memory loss and Denies panic attacks Mike/Lymph Denies easy bleeding and Denies easy bruising Aller/Immun Denies wheezing Physical exam (Primary Care) Vital Signs: Last Vital Signs Pulse 60 02/01/23 14:18 BP 136/90 H 02/01/23 14:18 Pulse Ox 98 02/01/23 14:18 Oxygen Delivery Method Room Air 02/01/23 14:18 BMI result Body Mass Index 26.5 Tobacco/Smoking Status: Tobacco use Status Tobacco use date assessed 10/02/22 02/01/23 14:20 Patient Tobacco Use Status Former Tobacco user 02/01/23 14:20 e-Cigarette/Vaping Use Never Used 02/01/23 14:20 Thrive Assessment: Date of Thrive Assessment Date Thrive assessed 10/12/22 02/01/23 14:20 Const Other: Weight gain noted General: healthy appearing, no acute distress, alert and awake Nutritional Appearance: well nourished Orientation/consciousness: oriented to person, oriented to place and oriented to time HENMT Ears: TM's normal bilaterally General nose exam: Normal nasal mucous membranes and turbinates present Eyes Conjunctivae: conjunctivae normal Sclerae: sclerae normal Pupils: Equal, round and reactive pupils present Neck Neck: Yes no lymphadenopathy and Yes no JVD Thyroid: Thyroid normal Carotids: no bruits Resp Effort & Inspection: normal respiratory effort and not tachypneic Auscultation: no crackles, no rales, no rhonchi and no wheezes Cardio Rate: regular rate Rhythm: regular rhythm Heart sounds: no murmurs and normal S1 and S2 GI Palpation (GI): Soft to palpation, nontender, no hepatomegaly and no splenomegaly Auscultation: normal bowel sounds Skin Other: MULTIPLE SCABBED OVER SKIN LESIONS OVER UPPER EXTREMITIES FACE, LOWER EXTREMITIES. General skin exam: dry skin Neuro General: oriented to person, oriented to place and oriented to time Cranial nerves: Yes Equal, round and reactive pupils present Speech: No Abnormal speech present Gait exam (Neuro): Normal gait present Motor exam (neuro): no tremor noted Extrem Right upper extremity: full ROM Left upper extremity: full ROM Right lower extremity: full ROM; no edema Left lower extremity: full ROM; no edema Psych Mental Status: mental status grossly normal Speech and movement: Normal speech and movement present Affect: normal affect Attitude: cooperative Thought process: Normal thought process present Office Procedures Flu Questionnaire Does the patient have a severe egg allergy?: No Does the patient have severe life threatening allergies?: No Does the patient have a fever or illness today?: No Has the patient ever had Guillain-Tyler Syndrome?: No Has the patient ever had any past reaction to a flu shot?: No Immunizations flu vacc [id number] 6mos up(PF) 60 mcg(15 mcgx4)/0.5 mL IM syringe Performing Provider: Blas Ingram PA-C Performing Location: [facility] Administered by: MEL Mayberry on 02/01/23 14:31 Dose Route Admin Location Dispensed Lot Number Expiration Date NDC Cluster Bore Operator 0.5 mL IM Left Deltoid 0.5 mL [id number] 08/29/23 83182-373-02 Violet Grey VIS Given Date VIS Provided VIS Publication Date 02/01/23 Single Vaccine 20 Eligibility Eligibility Date Funding Source Not [facility] Eligible 02/01/23 Private Assessment and Plan Assessment & Plan (1) Migraines: Code(s): G43.909 - Migraine, unspecified, not intractable, without status migrainosus Qualifiers: Intractability: not intractable Migraine type: unspecified Status migrainosus presence: without status migrainosus Qualified Code(s): G43.909 - Migraine, unspecified, not intractable, without status migrainosus Plan: Reports he has been having migraine type headaches that causes him nausea and vomiting over the last month. Will supply patient with migraine medication to use upon onset of symptoms. 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 Continues. Has tried Plaquenil though was unable to tolerate the GI side effects. He is interested in getting a 2nd opinion from a new blood typer in [place] though has a goal to getting to appointment. Also has followed up with an oncologist to rule out any malignancy and has now gotten a 2nd opinion a new GI about his chronic diarrhea. Orders: Orders Influenza [id number] Immunization 02/01/23 Z23 - Encounter for immunization Medications: New sumatriptan succinate take 1 tab at onset of headache; if no relief may repeat 1 tab after at least 2 hrs; max = 4 tabs/24 hr PO 10 tabs 1RF G43.909 - Migraine, unspecified, not intractable, without status migrainosus Changed From gabapentin 300 mg PO TID M94.1 - Relapsing polychondritis To gabapentin 300 mg PO TID 90 days 270 caps 1RF M94.1 - Relapsing polychondritis Refilled cephalexin 500 mg PO BID 7 days 14 caps 0RF R21 - Rash and other nonspecific skin eruption Discontinued fluconazole Discontinued Reason: Doctor's Order 150 mg PO QWEEK 4 weeks 4 tabs 0RF Coding Level of Care Code Est Pt Level 4 (88660) Diagnoses Migraine without status migrainosus, not intractable, unspecified migraine type G43.909 Intractability: not intractable Migraine type: unspecified Status migrainosus presence: without status migrainosus Relapsing polychondritis M94.1
[2023-02-01 14:18] VITALS: BP 136/90; PULSE 60; O2SAT 98; BMI 26.5
== END 2023-02-01 14:49 | disposition home or self-care (01) ==
PROVIDERS: PCP Physician Assistant; Visit Provider Physician Assistant
DX: Z23 Encounter for immunization (principal)
CPT/HCPCS: 90471; 90686; 99214

== ENCOUNTER 2023-05-11 14:27 | Outpatient (AMB) | payer OTHER, SELFPAY ==
[2023-05-11 14:33] VITALS: BP 146/90; PULSE 80; RESP 16; O2SAT 99; BMI 28.4
--- NOTE | 2023-05-11 14:33 | MHC.PC.OV ---
Vital Signs 05/11/23 14:33 Height 5 ft 5 in Weight 170 lb 8 oz BMI 28.4 BP 146/90 H Blood Pressure Location Lt brachial Position Sitting Respiration 16 Pulse 80 Pulse Source Pulse Oximeter Pulse Oximetry (%) 99 Oxygen Delivery Method Room Air Intake Visit Reasons: 3 month f/u Intake Note: Pt is here ongoing body swelling. Business Editor Required: No Accompanied by: Mother Allergies hydroxyzine Adverse Reaction (Intermediate, Verified 05/11/23 15:04) OCD isopropyl alcohol Adverse Reaction (Intermediate, Verified 05/11/23 15:04) Hives Medication List - Last Reconciled 05/11/23 by Blas Ingram PA-C alcohol swabs (Alcohol Prep Pads) pad topical buspirone 10 mg PO TID 30 days cephalexin 500 mg PO BID 7 days chlorhexidine gluconate 4% (Antiseptic Skin Cleanser (chlorhexidine)) 1 appl topical ONCE gabapentin 300 mg PO TID 90 days methadone 60 mg PO DAILY ondansetron 4 mg PO Q6H pantoprazole 40 mg PO DAILY 90 days permethrin 5% 1 appl topical Q14D 2 doses sumatriptan succinate take 1 tab at onset of headache; if no relief may repeat 1 tab after at least 2 hrs; max = 4 tabs/24 hr PO Tobacco use date assessed: 05/11/23 Dental Screening Dental Screen Date: 05/11/23 Did you have a dental visit in the last 12 months?: Yes Did you have a dental problem in the last 6 months where you did not have access to dental care?: No Was dental information given to patient?: Patient has dentist HPI 3 month f/u HPI Details Patient is a 43-year-old male here today for a follow-up visit. Patient's past history significant for opiate dependency, history of hep C, generalized anxiety disorder, ? Polychondritis .. He reports the recent 3 months he was able to eat well and had gained weight. He is skin manifestation were fairly clear though over last 2 weeks his skin manifestations have reappeared. He can not recall any trigger that may cause the skin manifestations. He reports that antibiotics usually help clear the skin issue up. He reports he did have a follow-up with a [facility] specialist whom told to he likely has a vasculitis Polychondritis: Has seen business intelligence administrator and was given diagnosis of relapsing polychondritis . He has not been able to tolerate Plaquenil Interested in a 2nd opinion rheumatology and [facility] . Continues to have in manifestations thought to be due to his polychondritis. He has seen multiple dermatologists and reports getting skin biopsies without a clear diagnosis. Continues on gabapentin 300 mg t.i.d. for his skin and joint related pains. . Opiate dependency: Continues on methadone clinic. Per patient he reports he continues to stay sober from street drugs. [facility] Medical History (Updated 05/11/23 @ 15:06 by Blas Ingram PA-C) Skin lesions Annual physical exam Prolapsed hemorrhoids Hx of opioid abuse Low blood pressure Hepatitis Surgical History History of esophagogastroduodenoscopy (EGD) H/O colonoscopy History of surgery on wrist Family History Father History of cancer Cancer of prostate Mother No problems noted. Brother Cancer of prostate Other Mental problem Substance abuse Social History Household Members: Family Housing: Apartment Are you a primary intensive care ambulance paramedic to a significant other at home: No Do you presently have visiting nurse or other home services: No Alcohol intake: never Patient Tobacco Use Status: Former Tobacco user Cigarettes Per Day: 1 e-Cigarette/Vaping Use: Never Used Second Hand Smoke Exposure: No Substance Use Type: Former Substance User, Heroin, Marijuana, Methamphetamine and Other service: No Current occupational status: unemployed Cognitive needs: No Hearing needs: No Vision needs: No Questionnaire PHQ-9 Over the last 2 weeks, how often have you been bothered by any of the following problems? 1. Little interest or pleasure in doing things: not at all 2. Feeling down, depressed, or hopeless: not at all 3. Trouble falling or staying asleep, or sleeping too much: not at all 4. Feeling tired or having little energy: not at all 5. Poor appetite or overeating: not at all 6. Feeling bad about yourself - or that you are a failure or have let yourself or your family down: not at all 7. Trouble concentrating on things, such as reading the newspaper or watching television: not at all 8. Moving or speaking so slowly that other people could have noticed. Or the opposite - being so fidgety or restless that you have been moving around a lot more than usual: not at all 9. Thoughts that you would be better off or of hurting yourself in some way: not at all Total score: 0 Depression Screening Interpretation: Negative Depression Screening Done: Yes 25332 - PHQ-9 Billing: Yes Source: Developed by Drs. Elgin Davis, Idalia Schulz, Mukesh Bro and colleagues, with an educational stanford from [email or web address]. Thrive Questionnaire Date Thrive assessed: 05/11/23 I am a: Patient What is your living situation today?: I have a steady place to live Within the past 12 months, did the food you bought not last and you didn't have the money to get more?: Never true Within the past 12 months, did you worry whether your food would run out before you got money to buy more?: Never true Do you have trouble paying for medicines?: No Do you have trouble getting transportation to medical appointments?: No Do you have trouble paying your heating and electricity bill?: No Do you have trouble taking care of your child, family member or friend?: No Do you have trouble with day-to-day activities such as bathing, preparing meals, shopping, managing finances, etc.?: No Are you currently unemployed and looking for a job?: No Are you interested in more education?: No Please select the resources that you would like help with: None Currently or been in a relationship where the following occur: no concerns reported THRIVE Score: 0 AUDIT C Alcohol Use Questionnaire (AUDIT-C) 1. How often do you have a drink containing alcohol?: Never 3. How often do you have six or more drinks on one occasion?: Never Total Score: 0 ADRIAN-7 AMB Questionnaire ARDIAN-7 Date ADRIAN - 7 assessed: 05/11/23 Feeling nervous, anxious, or on edge: 1 = Several days Not being able to stop or control worryin = Several days Worrying too much about different things: 1 = Several days Trouble relaxin = More than half the days Being so restless that it is hard to sit still: 2 = More than half the days Becoming easily annoyed or irritable: 2 = More than half the days Feeling afraid as if something awful might happen: 1 = Several days Total ADRIAN-7 score (0-4 normal; 5-9 mild; 10-14 moderate; 15-21 severe): 10 Source: Developed by Drs. Elgin Davis, Idalia Schulz, Mukesh Bro and colleagues, with an educational stanford from [email or web address]. ADRIAN-7 Assessment Billing ADRIAN-7 Assessment Tool: ADRIAN-7 Assessment 77315 Review of Systems Const Denies headache(s) Eyes Denies loss of vision ENT Denies vertigo, Denies dizziness, Denies headache(s) and Denies sore throat Card Denies chest pain, Denies leg edema and Denies lightheadedness Resp Denies cough, Denies hemoptysis and Denies wheezing GI Denies abdominal pain, Denies melena, Denies constipation, Denies diarrhea and Denies vomiting Denies dysuria, Denies urinary frequency and Denies urinary urgency Musc Denies arthralgias, Denies joint swelling, Denies numbness and Denies tingling Neuro Denies Abnormal speech present, Denies behavioral changes, Denies vertigo, Denies dizziness, Denies headache(s), Denies loss of vision, Denies memory loss, Denies numbness and Denies tingling Psych Denies anxiety, Denies behavioral changes, Denies depression, Denies memory loss and Denies panic attacks Mike/Lymph Denies easy bleeding and Denies easy bruising Aller/Immun Denies wheezing Physical exam (Primary Care) Vital Signs: Last Vital Signs Pulse 80 05/11/23 14:33 Resp 16 05/11/23 14:33 BP 146/90 H 05/11/23 14:33 Pulse Ox 99 05/11/23 14:33 Oxygen Delivery Method Room Air 05/11/23 14:33 BMI result Body Mass Index 28.4 Tobacco/Smoking Status: Tobacco use Status Tobacco use date assessed 05/11/23 05/11/23 14:43 Patient Tobacco Use Status Former Tobacco user 05/11/23 14:33 e-Cigarette/Vaping Use Never Used 05/11/23 14:33 PHQ-9: PHQ-9 Score PHQ-9: Total score 0 05/11/23 15:07 Depression Screening Interpretation: Negative Thrive Assessment: Date of Thrive Assessment Date Thrive assessed 05/11/23 05/11/23 14:43 Currently or been in a relationship where the following occur: no concerns reported Const General: healthy appearing, no acute distress, alert and awake Nutritional Appearance: well nourished Orientation/consciousness: oriented to person, oriented to place and oriented to time [facility] Ears: TM's normal bilaterally General nose exam: Normal nasal mucous membranes and turbinates present Eyes Conjunctivae: conjunctivae normal Sclerae: sclerae normal Pupils: Equal, round and reactive pupils present Neck Neck: Yes no lymphadenopathy and Yes no JVD Thyroid: Thyroid normal Carotids: no bruits Resp Effort & Inspection: normal respiratory effort and not tachypneic Auscultation: no crackles, no rales, no rhonchi and no wheezes Cardio Rate: regular rate Rhythm: regular rhythm Heart sounds: no murmurs and normal S1 and S2 GI Palpation (GI): Soft to palpation, nontender, no hepatomegaly and no splenomegaly Auscultation: normal bowel sounds Skin Other: RASH LIKE/ ABRASION LIKE SKIN MANIFESTATIONS OVER UPPER EXTREMITY, TORSO AND LOWER EXTREMITIES. General skin exam: dry skin Neuro General: oriented to person, oriented to place and oriented to time Cranial nerves: Yes Equal, round and reactive pupils present Speech: No Abnormal speech present Gait exam (Neuro): Normal gait present Motor exam (neuro): no tremor noted Extrem Right upper extremity: full ROM Left upper extremity: full ROM Right lower extremity: full ROM; no edema Left lower extremity: full ROM; no edema Psych Mental Status: mental status grossly normal Speech and movement: Normal speech and movement present Affect: normal affect Attitude: cooperative Thought process: Normal thought process present Assessment and Plan Assessment & Plan (1) Relapsing polychondritis: Code(s): M94.1 - Relapsing polychondritis Plan: Continues to have relapsing symptoms of skin ulcerations in his upper extremities, torso and legs. He does have some moderate swelling in his hands and wrists. He reports a few months ago he was feeling well able to eat good and going to the gym several times a week. He can not recall a trigger that has caused his skin lesions to return. (2) Vasculitis: Code(s): I77.6 - Arteritis, unspecified Plan: Has followed up with heme oncology at [facility]. Was found to anemia and slight low iron. Will start him on iron supplementation. He did follow-up in [place] with a specialist him told him he may have vasculitis though unclear what type of vasculitis at this time. Will be following up with Rheumatology here at [facility] Medications: New ferrous sulfate 325 mg PO DAILY 90 tabs 1RF D50.9 - Iron deficiency anemia, unspecified, D53.8 - Other specified nutritional anemias Refilled chlorhexidine gluconate 4% (Antiseptic Skin Cleanser (chlorhexidine)) 1 appl topical ONCE 118 mL 3RF cephalexin 500 mg PO BID 7 days 14 caps 0RF R21 - Rash and other nonspecific skin eruption Coding Level of Care Code Est Pt Level 4 (24551) Diagnoses Relapsing polychondritis M94.1 Vasculitis I77.6 Additional Codes ADRIAN-7 Assessment Billing - ADRIAN-7 Assessment Tool: ADRIAN-7 Assessment 08039 ([id number])
== END 2023-05-11 15:19 | disposition home or self-care (01) ==
PROVIDERS: PCP Physician Assistant; Visit Provider Physician Assistant
DX: M94.1 Relapsing polychondritis (principal); I77.6 Arteritis, unspecified
CPT/HCPCS: 99214

== ENCOUNTER 2023-08-11 14:01 | Outpatient (AMB) | payer OTHER, SELFPAY ==
[2023-08-11 14:04] VITALS: BP 160/98; PULSE 111; O2SAT 97; BMI 28.5
--- NOTE | 2023-08-11 14:04 | MHC.PC.OV ---
Vital Signs 08/11/23 14:04 Height 5 ft 5 in Weight 171 lb 2 oz BMI 28.5 BP 160/98 H Blood Pressure Location Lt brachial Position Sitting Pulse 111 H Pulse Source Pulse Oximeter Pulse Oximetry (%) 97 Oxygen Delivery Method Room Air Intake Visit Reasons: 3mth f/u Mineral Surveyor Required: No Accompanied by: Mother Allergies hydroxyzine Adverse Reaction (Intermediate, Verified 08/11/23 14:21) OCD isopropyl alcohol Adverse Reaction (Intermediate, Verified 08/11/23 14:21) Hives Medication List - Last Reconciled 08/11/23 by Blas Ingram PA-C alcohol swabs (Alcohol Prep Pads) pad topical buspirone 10 mg PO TID 30 days cephalexin 500 mg PO BID 7 days chlorhexidine gluconate 4% (Antiseptic Skin Cleanser (chlorhexidine)) 1 appl topical ONCE ferrous sulfate 325 mg PO DAILY gabapentin 300 mg PO TID 90 days ibuprofen 800 mg PO Q8H PRN 30 days methadone 60 mg PO DAILY ondansetron 4 mg PO Q6H pantoprazole 40 mg PO DAILY 90 days permethrin 5% 1 appl topical Q14D 2 doses sumatriptan succinate take 1 tab at onset of headache; if no relief may repeat 1 tab after at least 2 hrs; max = 4 tabs/24 hr PO Tobacco use date assessed: 05/11/23 Dental Screening Dental Screen Date: 05/11/23 HPI 3mth f/u HPI Details Patient is a 43-year-old male here today for a follow-up visit. Patient's past history significant for opiate dependency, history of hep C, generalized anxiety disorder, ? Relapsing Polychondritis .. 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 He has not been able to tolerate Plaquenil. He is restarted taking prednisone 10 mg daily and his skin manifestation/ulcerations have been healing. Continues to have in manifestations thought to be due to his polychondritis. He has seen multiple dermatologists and reports getting skin biopsies without a clear diagnosis -there was concern for picking disorder. .. Anemia: Has been found to be fairly anemic and has been started on oral iron supplementation. Has gotten endoscopy was recently started on PPI therapy. His anemia has been thought to be multifactorial regarding his autoimmune disease, poor p.o. intake ect.. PLAN: Will increase his iron supplementation to frequency of dosing to twice a day. Continues on gabapentin 300 mg t.i.d. for his skin and joint related pains. He has not been able to have dental work done due to his higher blood pressures. He reports he is fairly anxious when he goes to dentist and needs note from PCP. Will supply patient with low-dose anxiety medication prior to procedure to help. . Opiate dependency: Continues on methadone clinic. Per patient he reports he continues to stay sober from street drugs. [facility] Medical History Skin lesions Annual physical exam Prolapsed hemorrhoids Hx of opioid abuse Low blood pressure Hepatitis Surgical History History of esophagogastroduodenoscopy (EGD) H/O colonoscopy History of surgery on wrist Family History Father History of cancer Cancer of prostate Mother No problems noted. Brother Cancer of prostate Other Mental problem Substance abuse Social History Household Members: Family Housing: Apartment Are you a primary acute care physician to a significant other at home: No Do you presently have visiting nurse or other home services: No Alcohol intake: never Patient Tobacco Use Status: Former Tobacco user Cigarettes Per Day: 1 e-Cigarette/Vaping Use: Never Used Second Hand Smoke Exposure: No Substance Use Type: Former Substance User, Heroin, Marijuana, Methamphetamine and Other service: No Current occupational status: unemployed Cognitive needs: No Hearing needs: No Vision needs: No Questionnaire Thrive Questionnaire Date Thrive assessed: 05/11/23 ADRIAN-7 AMB Questionnaire ADRIAN-7 Date ADRIAN - 7 assessed: 05/11/23 Source: Developed by Drs. Elgin Davis, Idalia Schulz, Mukesh Bro and colleagues, with an educational stanford from [employer]. Review of Systems Const Denies headache(s) Eyes Denies loss of vision ENT Denies vertigo, Denies dizziness, Denies headache(s) and Denies sore throat Card Denies chest pain, Denies leg edema and Denies lightheadedness Resp Denies cough, Denies hemoptysis and Denies wheezing GI Denies abdominal pain, Denies melena, Denies constipation, Denies diarrhea and Denies vomiting Denies dysuria, Denies urinary frequency and Denies urinary urgency Musc Denies arthralgias, Denies joint swelling, Denies numbness and Denies tingling Neuro Denies Abnormal speech present, Denies behavioral changes, Denies vertigo, Denies dizziness, Denies headache(s), Denies loss of vision, Denies memory loss, Denies numbness and Denies tingling Psych Denies anxiety, Denies behavioral changes, Denies depression, Denies memory loss and Denies panic attacks Mike/Lymph Denies easy bleeding and Denies easy bruising Aller/Immun Denies wheezing Physical exam (Primary Care) Vital Signs: Last Vital Signs Pulse 111 H 08/11/23 14:04 BP 160/98 H 08/11/23 14:04 Pulse Ox 97 08/11/23 14:04 Oxygen Delivery Method Room Air 08/11/23 14:04 BMI result Body Mass Index 28.5 Tobacco/Smoking Status: Tobacco use Status Tobacco use date assessed 05/11/23 08/11/23 14:10 Patient Tobacco Use Status Former Tobacco user 08/11/23 14:10 e-Cigarette/Vaping Use Never Used 08/11/23 14:10 Thrive Assessment: Date of Thrive Assessment Date Thrive assessed 05/11/23 08/11/23 14:10 Const General: healthy appearing, no acute distress, alert and awake Nutritional Appearance: well nourished Orientation/consciousness: oriented to person, oriented to place and oriented to time HENMT Ears: TM's normal bilaterally General nose exam: Normal nasal mucous membranes and turbinates present Eyes Conjunctivae: conjunctivae normal Sclerae: sclerae normal Pupils: Equal, round and reactive pupils present Neck Neck: Yes no lymphadenopathy and Yes no JVD Thyroid: Thyroid normal Carotids: no bruits Resp Effort & Inspection: normal respiratory effort and not tachypneic Auscultation: no crackles, no rales, no rhonchi and no wheezes Cardio Rate: regular rate Rhythm: regular rhythm Heart sounds: no murmurs and normal S1 and S2 GI Palpation (GI): Soft to palpation, nontender, no hepatomegaly and no splenomegaly Auscultation: normal bowel sounds Skin General skin exam: no rashes or lesions noted and dry skin Neuro General: oriented to person, oriented to place and oriented to time Cranial nerves: Yes Equal, round and reactive pupils present Speech: No Abnormal speech present Gait exam (Neuro): Normal gait present Motor exam (neuro): no tremor noted Extrem Right upper extremity: full ROM Left upper extremity: full ROM Right lower extremity: full ROM; no edema Left lower extremity: full ROM; no edema Psych Mental Status: mental status grossly normal Speech and movement: Normal speech and movement present Affect: normal affect Attitude: cooperative Thought process: Normal thought process present Assessment and Plan Assessment & Plan (1) Relapsing polychondritis: Code(s): M94.1 - Relapsing polychondritis Plan: PLEASE SEE ATTACHED PHOTO PLACED IN PHYSICAL EXAM PORTION OF THIS NOTE.. Continues to have relapsing symptoms of skin ulcerations in his upper extremities, torso and legs. He does have some moderate swelling in his hands and wrists. He reports a few months ago he was feeling well able to eat good and going to the gym several times a week. He can not recall a trigger that has caused his skin lesions to return. (2) ADRIAN (generalized anxiety disorder): Code(s): F41.1 - Generalized anxiety disorder Plan: Continues to suffer with anxiety. He is asking for an as needed medication to use before his dental procedures as he has high blood pressure due to anxiety before dental procedures. Continues with the use of buspirone 10 mg t.i.d. with decent affect. (3) Anemia: Code(s): D64.9 - Anemia, unspecified Qualifiers: Anemia type: other cause Other causes of anemia: nutritional, other Qualified Code(s): D53.8 - Other specified nutritional anemias Plan: Has found to be fairly anemic recently. Has underwent endoscopy and colonoscopy without any significant signs of bleeding. Anemia is thought to be multifactorial including his diet and? Autoimmune disease Medications: New lorazepam 0.5 mg PO ONCE 1 tab 0RF anxiety 1 day F41.1 - Generalized anxiety disorder prednisone 5 mg PO DAILY 60 tabs 1RF 60 days M94.1 - Relapsing polychondritis Changed From ferrous sulfate 325 mg PO DAILY 90 tabs 1RF D50.9 - Iron deficiency anemia, unspecified, D53.8 - Other specified nutritional anemias To ferrous sulfate 325 mg PO BID 180 tabs 1RF 90 days D50.9 - Iron deficiency anemia, unspecified, D53.8 - Other specified nutritional anemias Refilled ibuprofen 800 mg PO Q8H PRN 90 tabs 0RF pain 30 days M25.50 - Pain in unspecified joint Coding Level of Care Code Est Pt Level 4 (84831) Diagnoses Relapsing polychondritis M94.1 ADRIAN (generalized anxiety disorder) F41.1 Other specified nutritional anemias D53.8 Anemia type: other cause Other causes of anemia: nutritional, other
== END 2023-08-11 14:46 | disposition home or self-care (01) ==
PROVIDERS: PCP Physician Assistant; Visit Provider Physician Assistant
DX: M94.1 Relapsing polychondritis (principal); F41.1 Generalized anxiety disorder; D53.8 Other specified nutritional anemias
CPT/HCPCS: 99214

== ENCOUNTER 2023-11-11 14:06 | Outpatient (AMB) | payer OTHER, SELFPAY ==
--- NOTE | 2023-11-11 14:09 | A.OFFPC_ITS ---
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 Required: No Accompanied by: Mother Allergies hydroxyzine Adverse Reaction (Intermediate, Verified 11/11/23 14:39) OCD isopropyl alcohol Adverse Reaction (Intermediate, Verified 11/11/23 14:39) Hives Medication List - Last Reconciled 11/11/23 by Blas Ingram PA-C alcohol swabs (Alcohol Prep Pads) pad topical amoxicillin-pot clavulanate 875-125 mg 1 tab PO BID 7 days buspirone 10 mg PO TID 30 days cephalexin 500 mg PO BID 7 days chlorhexidine gluconate 4% (Antiseptic Skin Cleanser (chlorhexidine)) 1 appl topical ONCE ferrous sulfate 325 mg PO BID 90 days gabapentin 300 mg PO TID 90 days ibuprofen 800 mg PO Q8H PRN 30 days lorazepam 0.5 mg PO ONCE PRN 30 days methadone 60 mg PO DAILY ondansetron 4 mg PO Q6H pantoprazole 40 mg PO DAILY 90 days permethrin 5% 1 appl topical Q14D 2 doses prednisone 5 mg PO DAILY 60 days sumatriptan succinate take 1 tab at onset of headache; if no relief may repeat 1 tab after at least 2 hrs; max = 4 tabs/24 hr PO Tobacco use date assessed: 05/11/23 Dental Screening Dental Screen Date: 05/11/23 HPI f/u Polychonditis 2 HPI0 Details Patient is a 43-year-old male here today for a follow-up visit. Patient's past history significant for opiate dependency, history of hep C, generalized anxiety disorder, ? Relapsing Polychondritis .. Polychondritis: Has seen party plan sales consultant and was given diagnosis of relapsing polychondritis . He has not been able to tolerate Plaquenil. He is restarted taking prednisone 10 mg daily and his skin manifestation/ulcerations have been healing. Continues to have in manifestations thought to be due to his polychondritis. He has seen multiple dermatologists and reports getting skin biopsies without a clear diagnosis -there was concern for picking disorder--> recommendations were made to see a psychiatrist AT THIS POINT PATIENT DOES NOT HAVE A FORMAL DIAGNOSIS OF HIS SKIN ISSUES. .. Anemia: Has been found to be fairly anemic and has been started on oral iron supplementation. Has gotten endoscopy was recently started on PPI therapy. His anemia has been thought to be multifactorial regarding his autoimmune disease, poor p.o. intake ect.. Continues on gabapentin 300 mg t.i.d. for his skin and joint related pains. Anxiety: Has been elevated lately, does use lorazepam on an as needed basis. Believes his buspirone needs to be increased in dose for better control of his anxiety. PLAN; will increase his buspirone to 15 mg t.i.d. . Opiate dependency: Continues on methadone clinic. Per patient he reports he continues to stay sober from street drugs. [facility] Medical History Skin lesions Annual physical exam Prolapsed hemorrhoids Hx of opioid abuse Low blood pressure Hepatitis Surgical History History of esophagogastroduodenoscopy (EGD) H/O colonoscopy History of surgery on wrist Family History Father History of cancer Cancer of prostate Mother No problems noted. Brother Cancer of prostate Other Mental problem Substance abuse Social History Household Members: Family Housing: Apartment Are you a primary health care social worker to a significant other at home: No Do you presently have visiting nurse or other home services: No Alcohol intake: never Patient Tobacco Use Status: Former Tobacco user Cigarettes Per Day: 1 e-Cigarette/Vaping Use: Never Used Second Hand Smoke Exposure: No Substance Use Type: Former Substance User, Heroin, Marijuana, Methamphetamine and Other service: No Current occupational status: unemployed Cognitive needs: No Hearing needs: No Vision needs: No Questionnaire Thrive Questionnaire Date Thrive assessed: 05/11/23 AUDIT C Alcohol Use Questionnaire (AUDIT-C) 3. How often do you have six or more drinks on one occasion?: Never Total Score: 0 ADRIAN-7 AMB Questionnaire ADRIAN-7 Date ADRIAN - 7 assessed: 05/11/23 Source: Developed by Drs. Elgin L. SusanIdalia lentz, Mukesh Bro and colleagues, with an educational stanford from [employer]. Review of Systems Const Denies headache(s) Eyes Denies loss of vision ENT Denies vertigo, Denies dizziness, Denies headache(s) and Denies sore throat Card Denies chest pain, Denies leg edema and Denies lightheadedness Resp Denies cough, Denies hemoptysis and Denies wheezing GI Denies abdominal pain, Denies melena, Denies constipation, Denies diarrhea and Denies vomiting Denies dysuria, Denies urinary frequency and Denies urinary urgency Musc Denies arthralgias, Denies joint swelling, Denies numbness and Denies tingling Neuro Denies Abnormal speech present, Denies behavioral changes, Denies vertigo, Denies dizziness, Denies headache(s), Denies loss of vision, Denies memory loss, Denies numbness and Denies tingling Psych Denies anxiety, Denies behavioral changes, Denies depression, Denies memory loss and Denies panic attacks Mike/Lymph Denies easy bleeding and Denies easy bruising Aller/Immun Denies wheezing Physical exam (Primary Care) Vital Signs: Last Vital Signs Pulse 89 11/11/23 14:16 BP 110/80 11/11/23 14:16 Pulse Ox 98 11/11/23 14:16 Oxygen Delivery Method Room Air 11/11/23 14:16 BMI result Body Mass Index 31.5 Tobacco/Smoking Status: Tobacco use Status Tobacco use date assessed 05/11/23 11/11/23 14:09 Patient Tobacco Use Status Former Tobacco user 11/11/23 14:09 e-Cigarette/Vaping Use Never Used 11/11/23 14:09 Thrive Assessment: Date of Thrive Assessment Date Thrive assessed 05/11/23 11/11/23 14:09 Const General: healthy appearing, no acute distress, alert and awake Nutritional Appearance: well nourished Orientation/consciousness: oriented to person, oriented to place and oriented to time HENMT Ears: TM's normal bilaterally General nose exam: Normal nasal mucous membranes and turbinates present Eyes Conjunctivae: conjunctivae normal Sclerae: sclerae normal Pupils: Equal, round and reactive pupils present Neck Neck: Yes no lymphadenopathy and Yes no JVD Thyroid: Thyroid normal Carotids: no bruits Resp Effort & Inspection: normal respiratory effort and not tachypneic Auscultation: no crackles, no rales, no rhonchi and no wheezes Cardio Rate: regular rate Rhythm: regular rhythm Heart sounds: no murmurs and normal S1 and S2 GI Palpation (GI): Soft to palpation, nontender, no hepatomegaly and no splenomegaly Auscultation: normal bowel sounds Skin Other: General skin exam: no rashes or lesions noted and dry skin Neuro General: oriented to person, oriented to place and oriented to time Cranial nerves: Yes Equal, round and reactive pupils present Speech: No Abnormal speech present Gait exam (Neuro): Normal gait present Motor exam (neuro): no tremor noted Extrem Right upper extremity: full ROM Left upper extremity: full ROM Right lower extremity: full ROM; no edema Left lower extremity: full ROM; no edema Psych Mental Status: mental status grossly normal Speech and movement: Normal speech and movement present Affect: normal affect Attitude: cooperative Thought process: Normal thought process present Assessment and Plan Assessment & Plan (1) Relapsing polychondritis: Code(s): M94.1 - Relapsing polychondritis Plan: PLEASE SEE ATTACHED PHOTO PLACED IN PHYSICAL EXAM PORTION OF THIS NOTE.. PLEASE SEE PICTURES IN PHYSICAL EXAM SECTION Continues to have will wait believed to be relapsing symptoms of skin ulcerations in his upper extremities, torso and legs. He does have some moderate swelling in his hands and wrists. No formal treatment at this time (2) Open arm wound: Code(s): S41.109A - Unspecified open wound of unspecified upper arm, initial encounter Qualifiers: Encounter type: subsequent encounter Laterality: right Qualified Code(s): S41.101D - Unspecified open wound of right upper arm, subsequent encounter Plan: PLEASE SEE PICTURES IN PHYSICAL EXAM SECTION. (3) Opiate dependence: Comment: Patient may have Behcets or other autoimmune condition causing ulcers. It doesnt look like porphyria which can be associated with Hepatitis C. Also neurodermatitis,looks like area picked at as well by patient. Herpes simplex possible groin area (HIV and syphilis negative) Also opioid or other drug use such as xylazine or MRSA can cause ulcers (no response to antibiotics) and denies drug use. Code(s): F11.20 - Opioid dependence, uncomplicated Qualifiers: Substance use status: uncomplicated Qualified Code(s): F11.20 - Opioid dependence, uncomplicated Plan: Continues to follow a methadone clinic (4) ADRIAN (generalized anxiety disorder): Code(s): F41.1 - Generalized anxiety disorder Plan: Patient's anxiety has been elevated as of late due to his current skin condition. Will increase his BuSpar to 15 mg t.i.d.. Does have lorazepam available to him for emergency use only. Orders: Referrals 2 Wound Care Referral S41.101D - Unspecified open wound of right upper arm, subsequent encounter Medications: New 2 buspirone 15 mg PO TID 90 tabs 3RF 30 days F41.1 - Generalized anxiety disorder Refilled 2 cephalexin 500 mg PO BID 14 caps 0RF 7 days R21 - Rash and other nonspecific skin eruption Discontinued 2 buspirone Discontinued Reason: Doctor's Order 10 mg PO TID 30 days 90 tabs 3RF F41.1 - Generalized anxiety disorder amoxicillin-pot clavulanate 875-125 mg Discontinued Reason: Doctor's Order 1 tab PO BID 7 days 14 tabs 0RF J40 - Bronchitis, not specified as acute or chronic Coding Level of Care Code Est Pt Level 4 (79316) Diagnoses Relapsing polychondritis M94.1 Open wound of right upper extremity, subsequent encounter S41.101D Encounter type: subsequent encounter Laterality: right Uncomplicated opioid dependence F11.20 Substance use status: uncomplicated ADRIAN (generalized anxiety disorder) F41.1
[2023-11-11 14:16] VITALS: BP 110/80; PULSE 89; O2SAT 98; BMI 31.5
== END 2023-11-11 14:58 | disposition home or self-care (01) ==
PROVIDERS: PCP Physician Assistant; Visit Provider Physician Assistant
DX: M94.1 Relapsing polychondritis (principal); S41.101D Unspecified open wound of right upper arm, subsequent encounter; F11.20 Opioid dependence, uncomplicated; F41.1 Generalized anxiety disorder
CPT/HCPCS: 99214

== ENCOUNTER 2024-02-10 15:06 | Outpatient (AMB) | payer OTHER, SELFPAY ==
[2024-02-10 15:16] VITALS: BP 100/50; PULSE 62; O2SAT 100; BMI 30.2
--- NOTE | 2024-02-10 15:16 | A.OFFPC_ITS ---
Vital Signs 02/10/24 15:16 02/10/24 15:36 Height 5 ft 5 in Weight 181 lb 6 oz BMI 30.2 BP 100/50 L 90/60 Blood Pressure Location Lt brachial Position Sitting Pulse 62 Pulse Source Pulse Oximeter Pulse Oximetry (%) 100 Oxygen Delivery Method Room Air Intake Visit Reasons: 3 Month Follow up Coordinator Skill Training Program Required: No Accompanied by: Mother Allergies hydroxyzine Adverse Reaction (Intermediate, Verified 02/10/24 15:22) OCD isopropyl alcohol Adverse Reaction (Intermediate, Verified 02/10/24 15:22) Hives Medication List - Last Reconciled 02/10/24 by Blas Ingram PA-C alcohol swabs (Alcohol Prep Pads) pad topical buspirone 15 mg PO TID 30 days cephalexin 500 mg PO BID 7 days chlorhexidine gluconate 4% (Antiseptic Skin Cleanser (chlorhexidine)) 1 appl topical ONCE ferrous sulfate 325 mg PO BID 90 days gabapentin 300 mg PO TID 90 days ibuprofen 800 mg PO Q8H PRN 30 days lorazepam 0.5 mg PO ONCE PRN 30 days methadone 60 mg PO DAILY ondansetron 4 mg PO Q6H pantoprazole 40 mg PO DAILY 90 days permethrin 5% 1 appl topical Q14D 2 doses prednisone 5 mg PO DAILY 60 days sumatriptan succinate take 1 tab at onset of headache; if no relief may repeat 1 tab after at least 2 hrs; max = 4 tabs/24 hr PO Tobacco use date assessed: 05/11/23 Dental Screening Dental Screen Date: 05/11/23 HPI 3 Month Follow up HPI Details Patient is a 43-ye ar-old male here t [place] for a follow- up visit. Patient 's past history si gnificant for opia te dependency, his tory of hep C, gen eralized anxiety d isorder, ? Relaps ing Polychondritis .. Has been est ablished with woun d care management whom has been work ing with [place] in his family on zaidi dling his open wou nds. He now has X eroform dressings and family reports wounds has been h ealing well. Unfo rtunately today sadia jean appears to t he office very let hargic and pale ap pearing. He is se eing a oncologist for anemia and get ting iron infusion s. He is set up t o have an iron inf usion tomorrow. He does get regular labs done at [facility] and inform me h is most recent hem oglobin was at 7.1 . . Pulmonary nodu les: Patient has a history of pulmo nary nodules noted on CT of chest. Also did have jin r lymphadenopathy. There was recomm endations to do a repeat 3 to six-mo [facility] chest CT to ev aluate the nodules . Will place orde r for chest CT. AT THIS POINT TAMIE PAPPAS DOES NOT HAVE A FORMAL DIAGNOSI S OF HIS SKIN ISSU ES. ..Anemia: Has been found to be fairly anemic a nd has been starte d on oral iron sup plementation. Has gotten endoscopy was recently start ed on PPI therapy. His anemia has b een thought to be multifactorial reg arding his autoimm une disease, poor p.o. intake ect.. Continues on ga bapentin 300 mg t. i.d. for his skin and joint related pains. Anxiety: Has been elevated lately, does use l orazepam on an as needed basis. Bel ieves his buspiron e needs to be incr eased in dose for better control of his anxiety. PLAN; will increase his buspirone to 15 m g t.i.d. . Opiate dependency: Cont inues on methadone clinic. Per tamie pappas he reports he continues to stay sober from street drugs. [facility] Medical History (Updated 02/10/24 @ 15:49 by Blas Ingram PA-C) Skin lesions Annual physical exam Prolapsed hemorrhoids Hx of opioid abuse Low blood pressure Hepatitis Surgical History History of esophagogastroduodenoscopy (EGD) H/O colonoscopy History of surgery on wrist Family History Father History of cancer Cancer of prostate Mother No problems noted. Brother Cancer of prostate Other Mental problem Substance abuse Social History Household Members: Family Housing: Apartment Are you a primary vocational childcare teacher to a significant other at home: No Do you presently have visiting nurse or other home services: No Alcohol intake: never Patient Tobacco Use Status: Former Tobacco user Cigarettes Per Day: 1 e-Cigarette/Vaping Use: Never Used Second Hand Smoke Exposure: No Substance Use Type: Former Substance User, Heroin, Marijuana, Methamphetamine and Other service: No Current occupational status: unemployed Cognitive needs: No Hearing needs: No Vision needs: No Questionnaire Thrive Questionnaire Date Thrive assessed: 05/11/23 ADRIAN-7 AMB Questionnaire ADRIAN-7 Date ADRIAN - 7 assessed: 05/11/23 Source: Developed by Drs. Elgin Davis, Idalia Schulz, Mukesh Bro and colleagues, with an educational stanford from [employer]. Review of Systems Const Reports fatigue and Denies headache(s) Eyes Denies loss of vision ENT Denies vertigo, Denies dizziness, Denies headache(s) and Denies sore throat Card Denies chest pain, Denies leg edema and Denies lightheadedness Resp Denies cough, Denies hemoptysis and Denies wheezing GI Denies abdominal pain, Denies melena, Denies constipation, Denies diarrhea and Denies vomiting Denies dysuria, Denies urinary frequency and Denies urinary urgency Musc Denies arthralgias, Denies joint swelling, Denies numbness and Denies tingling Neuro Denies Abnormal speech present, Denies behavioral changes, Denies vertigo, Denies dizziness, Denies headache(s), Denies loss of vision, Denies memory loss, Denies numbness and Denies tingling Psych Denies anxiety, Denies behavioral changes, Denies depression, Denies memory loss and Denies panic attacks Endo Reports fatigue Mike/Lymph Denies easy bleeding and Denies easy bruising Aller/Immun Denies wheezing Physical exam (Primary Care) Vital Signs: Last Vital Signs Pulse 62 02/10/24 15:16 BP 90/60 02/10/24 15:36 Pulse Ox 100 02/10/24 15:16 Oxygen Delivery Method Room Air 02/10/24 15:16 BMI result Body Mass Index 30.2 Tobacco/Smoking Status: Tobacco use Status Tobacco use date assessed 05/11/23 02/10/24 15:17 Patient Tobacco Use Status Former Tobacco user 02/10/24 15:17 e-Cigarette/Vaping Use Never Used 02/10/24 15:17 Thrive Assessment: Date of Thrive Assessment Date Thrive assessed 05/11/23 02/10/24 15:17 Const Other: APPEARS TIRED, PALE APPEARING. General: alert and awake Nutritional Appearance: well nourished Orientation/consciousness: oriented to person, oriented to place and oriented to time HENMT Ears: TM's normal bilaterally General nose exam: Normal nasal mucous membranes and turbinates present Eyes Conjunctivae: conjunctivae normal Sclerae: sclerae normal Pupils: Equal, round and reactive pupils present Neck Neck: Yes no lymphadenopathy and Yes no JVD Thyroid: Thyroid normal Carotids: no bruits Resp Effort & Inspection: normal respiratory effort and not tachypneic Auscultation: no crackles, no rales, no rhonchi and no wheezes Cardio Rate: regular rate Rhythm: regular rhythm Heart sounds: no murmurs and normal S1 and S2 GI Palpation (GI): Soft to palpation, nontender, no hepatomegaly and no splenomegaly Auscultation: normal bowel sounds Skin General skin exam: no rashes or lesions noted and dry skin Neuro General: oriented to person, oriented to place and oriented to time Cranial nerves: Yes Equal, round and reactive pupils present Speech: No Abnormal speech present Gait exam (Neuro): Normal gait present Motor exam (neuro): no tremor noted Extrem Right upper extremity: full ROM Left upper extremity: full ROM Right lower extremity: full ROM; no edema Left lower extremity: full ROM; no edema Psych Mental Status: mental status grossly normal Speech and movement: Normal speech and movement present Affect: normal affect Attitude: cooperative Thought process: Normal thought process present Coding Level of Care Code Est Pt Level 4 (96029) Diagnoses Other specified nutritional anemias D53.8 Anemia type: other cause Other causes of anemia: nutritional, other Pulmonary nodule R91.1 Hypotension due to hypovolemia E86.1 Hypotension type: hypotension due to hypovolemia Open wound of right upper extremity, subsequent encounter S41.101D Encounter type: subsequent encounter Laterality: right Assessment & Plan Assessment & Plan (1) Anemia: Code(s): D64.9 - Anemia, unspecified Category: Medical Qualifiers: Anemia type: other cause Other causes of anemia: nutritional, other Qualified Code(s): D53.8 - Other specified nutritional anemias Plan: Patient has a significant anemia. Most recent hemoglobin noted at [facility] as 7.1. Today in office appears very pale and somewhat lethargic. Blood pressure on the low side today. STRONGLY ADVISED TO GO TO THE ER FOR POSSIBLE BLOOD TRANSFUSION OR VOLUME REPLENISHMENT THOUGH PATIENT IS NOT WILLING TO DO SO AT THIS TIME. HE DOES HAVE AN APPOINTMENT TO DO HIS IRON INFUSION TOMORROW AND WILL BE ASSESSED AT THAT TIME WELL. (2) Pulmonary nodule: Code(s): R91.1 - Solitary pulmonary nodule Category: Medical Plan: Has a history of pulmonary nodules and hilar lymphadenopathy. His CT done about 3 months ago recommended a follow-up 3 to six-month CT of his chest to evaluate nodules and lymphadenopathy in the hilar region. (3) Low blood pressure: Code(s): I95.9 - Hypotension, unspecified Category: Medical Qualifiers: Hypotension type: hypotension due to hypovolemia Qualified Code(s): E86.1 - Hypovolemia Plan: Patient fairly hypotensive today in office. Appears pale. Likely is severely anemic. Does followed by motor vehicle light assembler at [facility] will be getting an iron infusion tomorrow. He is not interested in going to the ER ton [facility] and would like to wait until he sees is motor vehicle light assembler tomorrow. (4) Open arm wound: Code(s): S41.109A - Unspecified open wound of unspecified upper arm, initial encounter Category: Medical Qualifiers: Encounter type: subsequent encounter Laterality: right Qualified Code(s): S41.101D - Unspecified open wound of right upper arm, subsequent encounter Plan: Patient has open wounds on his arms has been clinically improving. He is seeing family engagement specialist whom is debriding wounds in giving the appropriate wound care management. Orders: Orders CT chest w IV con 02/10/24 R59.0 - Localized enlarged lymph nodes, R91.1 - Solitary pulmonary nodule Medications: Refilled lorazepam 0.5 mg PO ONCE PRN 14 tabs 0RF anxiety 30 days F41.1 - Generalized anxiety disorder Discontinued permethrin 5% apply second treatment 14 days after first treatment if live lice remain Discontinued Reason: Doctor's Order 1 appl topical Q14D 60 grams 3RF M94.1 - Relapsing polychondritis cephalexin Discontinued Reason: Doctor's Order 500 mg PO BID 7 days 14 caps 0RF R21 - Rash and other nonspecific skin eruption
[2024-02-10 15:36] VITALS: BP 90/60
== END 2024-02-10 15:58 | disposition home or self-care (01) ==
PROVIDERS: PCP Physician Assistant; Visit Provider Physician Assistant
DX: D53.8 Other specified nutritional anemias (principal); R91.1 Solitary pulmonary nodule; E86.1 Hypovolemia; S41.101D Unspecified open wound of right upper arm, subsequent encounter

== ENCOUNTER → 2024-02-10 15:06 | Outpatient (BNVA) | payer OTHER, SELFPAY | PROVIDERS: PCP Physician Assistant; Visit Provider Physician Assistant | DX: D53.8 Other specified nutritional anemias (principal); R91.1 Solitary pulmonary nodule; E86.1 Hypovolemia; S41.101D Unspecified open wound of right upper arm, subsequent encounter | CPT/HCPCS: 99212 ==

== ENCOUNTER 2024-05-23 14:01 | Outpatient (AMB) | payer OTHER, SELFPAY ==
[2024-05-23 14:05] VITALS: BP 140/92; PULSE 90; TEMP 36.2; O2SAT 98; BMI 32.7
--- NOTE | 2024-05-23 14:05 | A.OFFPC_ITS ---
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 Required: No Accompanied by: Mother Allergies hydroxyzine Adverse Reaction (Intermediate, Verified 05/23/24 14:28) OCD isopropyl alcohol Adverse Reaction (Intermediate, Verified 05/23/24 14:28) Hives Medication List - Last Reconciled 05/23/24 by Blas Ingram PA-C alcohol swabs (Alcohol Prep Pads) pad topical buspirone 15 mg PO TID 30 days chlorhexidine gluconate 4% (Antiseptic Skin Cleanser (chlorhexidine)) 1 appl topical ONCE ferrous sulfate 325 mg PO BID 90 days gabapentin 300 mg PO TID 90 days ibuprofen 800 mg PO Q8H PRN 30 days lorazepam 0.5 mg PO ONCE PRN 30 days methadone 60 mg PO DAILY ondansetron 4 mg PO Q6H pantoprazole 40 mg PO DAILY 90 days prednisone 5 mg PO DAILY 60 days sumatriptan succinate take 1 tab at onset of headache; if no relief may repeat 1 tab after at least 2 hrs; max = 4 tabs/24 hr PO Tobacco use date assessed: 05/23/24 Dental Screening Dental Screen Date: 05/23/24 Did you have a dental visit in the last 12 months?: No Did you have a dental problem in the last 6 months where you did not have access to dental care?: No Was dental information given to patient?: Patient has dentist HPI f/u anemia HPI Details Patient is a 44-year-old male here today for a follow-up visit. Patient's past history significant for opiate dependency, history of hep C, generalized anxiety disorder, ? Relapsing Polychondritis .. . Pulmonary nodules: Patient has a history of pulmonary nodules noted on CT of chest. Also did have hilar lymphadenopathy. There was recommendations to do a repeat 3 to six-month chest CT to evaluate the nodules. He is due for new order for CT chest due to previous nodules and hilar lymphadenopathy. ..Anemia: Has been found to be fairly a nemic and has been started on oral iron supplementation. Has gotten endoscopy and colonoscopy was recently started on PPI therapy. His endoscopy and colonoscopy were normal. His anemia has been thought to be multifactorial regarding his autoimmune disease, poor p.o. intake ect.. 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 Most recent hemoglobin much improved at 11. He reports feeling better with much more energy and his skin issues has been resolving. -> AT THIS TIME IS UNCLEAR WHAT HAS CAUS ED HIS ANEMIA. ADVISED TO TALK TO HIS GATE TENDER ABOUT BONE MARROW EVALUATION. Continues on gabapentin 300 mg t.i.d. for his skin and joint related pains. Anxiety: Has been elevated lately, does use lorazepam on an as needed basis. Believes his buspirone needs to be increased in dose for better control of his anxiety. He does report having difficulties with sleeping. It has drink quite a bit of [id number] ZzzQuil which has helped him sleep. .. .Opiate dependency: Continues on methad one clinic. Per patient he reports he continues to stay sober from street drugs [facility] Medical History (Updated 05/25/24 @ 07:33 by Blas Ingram PA-C) Skin lesions Annual physical exam Prolapsed hemorrhoids Hx of opioid abuse Low blood pressure Hepatitis Surgical History History of esophagogastroduodenoscopy (EGD) H/O colonoscopy History of surgery on wrist Family History Father History of cancer Cancer of prostate Mother No problems noted. Brother Cancer of prostate Other Mental problem Substance abuse Social History Household Members: Family Housing: Apartment Are you a primary animal daycare provider to a significant other at home: No Do you presently have visiting nurse or other home services: No Alcohol intake: never Patient Tobacco Use Status: Former Tobacco user Cigarettes Per Day: 1 e-Cigarette/Vaping Use: Never Used Second Hand Smoke Exposure: No Substance Use Type: Former Substance User, Heroin, Marijuana, Methamphetamine and Other service: No Current occupational status: unemployed Cognitive needs: No Hearing needs: No Vision needs: No Questionnaire PHQ-9 Over the last 2 weeks, how often have you been bothered by any of the following problems? 1. Little interest or pleasure in doing things: not at all 2. Feeling down, depressed, or hopeless: not at all 3. Trouble falling or staying asleep, or sleeping too much: not at all 4. Feeling tired or having little energy: not at all 5. Poor appetite or overeating: not at all 6. Feeling bad about yourself - or that you are a failure or have let yourself or your family down: not at all 7. Trouble concentrating on things, such as reading the newspaper or watching television: not at all 8. Moving or speaking so slowly that other people could have noticed. Or the opposite - being so fidgety or restless that you have been moving around a lot more than usual: not at all 9. Thoughts that you would be better off or of hurting yourself in some way: not at all Total score: 0 Depression Screening Interpretation: Negative Depression Screening Done: Yes 29933 - PHQ-9 Billing: Yes Source: Developed by Drs. Elgin Davis, Idalia Schulz, Mukesh Bro and colleagues, with an educational stanford from [employer]. Thrive Questionnaire Date Thrive assessed: 05/23/24 I am a: Patient What is your living situation today?: I have a steady place to live Within the past 12 months, did the food you bought not last and you didn't have the money to get more?: Never true Within the past 12 months, did you worry whether your food would run out before you got money to buy more?: Never true Do you have trouble paying for medicines?: No Do you have trouble getting transportation to medical appointments?: No Do you have trouble paying your heating and electricity bill?: No Do you have trouble taking care of your child, family member or friend?: No Do you have trouble with day-to-day activities such as bathing, preparing meals, shopping, managing finances, etc.?: No Are you currently unemployed and looking for a job?: No Are you interested in more education?: No Please select the resources that you would like help with: None Currently or been in a relationship where the following occur: No concerns reported THRIVE Score: 0 AUDIT C Alcohol Use Questionnaire (AUDIT-C) 1. How often do you have a drink containing alcohol?: Never 3. How often do you have six or more drinks on one occasion?: Never Total Score: 0 ADRIAN-7 AMB Questionnaire ADRIAN-7 Date ADRIAN - 7 assessed: 05/23/24 Feeling nervous, anxious, or on edge: 0 = Not at all Not being able to stop or control worryin = Not at all Worrying too much about different things: 0 = Not at all Trouble relaxin = Not at all Being so restless that it is hard to sit still: 0 = Not at all Becoming easily annoyed or irritable: 0 = Not at all Feeling afraid as if something awful might happen: 0 = Not at all Total ADRIAN-7 score (0-4 normal; 5-9 mild; 10-14 moderate; 15-21 severe): 0 Source: Developed by Drs. Elgin Davis, Idalia Schulz, Mukesh Bro and colleagues, with an educational stanford from [employer]. ADRIAN-7 Assessment Billing ADRIAN-7 Assessment Tool: ADRIAN-7 Assessment 27405 Review of Systems Const Denies headache(s) Eyes Denies loss of vision ENT Denies vertigo, Denies dizziness, Denies headache(s) and Denies sore throat Card Denies chest pain, Denies leg edema and Denies lightheadedness Resp Denies cough, Denies hemoptysis and Denies wheezing GI Denies abdominal pain, Denies melena, Denies constipation, Denies diarrhea and Denies vomiting Denies dysuria, Denies urinary frequency and Denies urinary urgency Musc Denies arthralgias, Denies joint swelling, Denies numbness and Denies tingling Neuro Denies Abnormal speech present, Denies behavioral changes, Denies vertigo, Denies dizziness, Denies headache(s), Denies loss of vision, Denies memory loss, Denies numbness and Denies tingling Psych Denies anxiety, Denies behavioral changes, Denies depression, Denies memory loss and Denies panic attacks Mike/Lymph Denies easy bleeding and Denies easy bruising Aller/Immun Denies wheezing Physical exam (Primary Care) Vital Signs: Last Vital Signs Temp 97.1 F 05/23/24 14:05 Pulse 90 05/23/24 14:05 BP 140/92 H 05/23/24 14:05 Pulse Ox 98 05/23/24 14:05 Oxygen Delivery Method Room Air 05/23/24 14:05 BMI result Body Mass Index 32.7 Tobacco/Smoking Status: Tobacco use Status Tobacco use date assessed 05/23/24 05/23/24 14:27 Patient Tobacco Use Status Former Tobacco user 05/23/24 14:05 e-Cigarette/Vaping Use Never Used 05/23/24 14:05 PHQ-9: PHQ-9 Score PHQ-9: Total score 0 05/23/24 14:30 Depression Screening Interpretation: Negative Thrive Assessment: Date of Thrive Assessment Date Thrive assessed 05/23/24 05/23/24 14:27 Currently or been in a relationship where the following occur: No concerns reported Const General: healthy appearing, no acute distress, alert and awake Nutritional Appearance: well nourished Orientation/consciousness: oriented to person, oriented to place and oriented to time HENMT Ears: TM's normal bilaterally General nose exam: Normal nasal mucous membranes and turbinates present Eyes Conjunctivae: conjunctivae normal Sclerae: sclerae normal Pupils: Equal, round and reactive pupils present Neck Neck: Yes no lymphadenopathy and Yes no JVD Thyroid: Thyroid normal Carotids: no bruits Resp Effort & Inspection: normal respiratory effort and not tachypneic Auscultation: no crackles, no rales, no rhonchi and no wheezes Cardio Rate: regular rate Rhythm: regular rhythm Heart sounds: no murmurs and normal S1 and S2 GI Palpation (GI): Soft to palpation, nontender, no hepatomegaly and no splenomegaly Auscultation: normal bowel sounds Skin Other: SKIN ULCERATION/ MANIFESTATIONS OVER EXTREMITIES AND TORSO SEEM TO BE HEALING. General skin exam: rashes and/or lesions noted and dry skin Neuro General: oriented to person, oriented to place and oriented to time Cranial nerves: Yes Equal, round and reactive pupils present Speech: No Abnormal speech present Gait exam (Neuro): Normal gait present Motor exam (neuro): no tremor noted Extrem Right upper extremity: full ROM Left upper extremity: full ROM Right lower extremity: full ROM; no edema Left lower extremity: full ROM; no edema Psych Mental Status: mental status grossly normal Speech and movement: Normal speech and movement present Affect: normal affect Attitude: cooperative Thought process: Normal thought process present Coding Level of Care Code Est Pt Level 4 (27537) Diagnoses Primary insomnia F51.01 Insomnia type: primary 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 We have discussed Seroquel and trazodone though have interaction with his methadone maintenance medication. (2) Relapsing polychondritis: Code(s): M94.1 - Relapsing polychondritis Category: Medical Plan: As per HPI patient has seen multiple aircraft engine technician about his skin issue. Resolving diagnosis at this time is relapsing polychondritis. Since his anemia has been more managed with iron IV infusions his skin seems to has been clearing up. (3) Anemia: Code(s): D64.9 - Anemia, unspecified Category: Medical Qualifiers: Anemia type: other cause Other causes of anemia: nutritional, other Qualified Code(s): D53.8 - Other specified nutritional anemias Plan: As per HPI patient had significant anemia. Endoscopy and colonoscopy without any significant bleeding noted. He is seeing Hematology and does have a central line to which he is getting IV iron infusions. Advised to talk to his supervisor concrete pipe plant about bone marrow evaluation. (4) Opiate dependence: Comment: Patient may have Behcets or other autoimmune condition causing ulcers. It doesnt look like porphyria which can be associated with Hepatitis C. Also neurodermatitis,looks like area picked at as well by patient. Herpes simplex possible groin area (HIV and syphilis negative) Also opioid or other drug use such as xylazine or MRSA can cause ulcers (no response to antibiotics) and denies drug use. Code(s): F11.20 - Opioid dependence, uncomplicated Category: Medical Qualifiers: Substance use status: uncomplicated Qualified Code(s): F11.20 - Opioid dependence, uncomplicated Plan: Patient continues to go to a methadone clinic and per patient's stays away from any illicit opiate use. Medications: Refilled lorazepam 0.5 mg PO ONCE PRN 14 tabs 0RF anxiety 30 days F41.1 - Generalized anxiety disorder
== END 2024-05-23 14:53 | disposition home or self-care (01) ==
LOC: HO.HMCH 14:01
PROVIDERS: PCP Physician Assistant; Visit Provider Physician Assistant
DX: F51.01 Primary insomnia (principal); M94.1 Relapsing polychondritis; D53.8 Other specified nutritional anemias; F11.20 Opioid dependence, uncomplicated

== ENCOUNTER → 2024-05-23 14:01 | Outpatient (BNVA) | payer OTHER, SELFPAY | PROVIDERS: PCP Physician Assistant; Visit Provider Physician Assistant | DX: F51.01 Primary insomnia (principal); M94.1 Relapsing polychondritis; D53.8 Other specified nutritional anemias; F11.20 Opioid dependence, uncomplicated | CPT/HCPCS: 96127; 99212 ==

== ENCOUNTER 2024-06-27 08:24 | Outpatient (REF) | payer OTHER, SELFPAY ==
--- NOTE | ~2024-06-27 | CT_ITS ---
CLINICAL HISTORY: R59.0 - Localized enlarged lymph nodes CT chest with contrast Comparison: CR - XR CHEST 2V - 10/05/20 10:19 EDT Findings: Thymic tissue without suspicious features. No mediastinal/hilar lymphadenopathy. No axillary or supraclavicular lymphadenopathy. No upper abdominal lymphadenopathy. Right chest wall central venous catheter with the tip terminating at the cavoatrial junction. Unremarkable heart and vasculature. Paraseptal emphysema extends to the lung bases and measures up to 2.2 cm of the right lung apex. There is a mild amount of bilateral ground-glass opacity which measures up to 2.3 cm in the left lower lobe. Solid pulmonary nodules measure up to 5 mm. Calcified granuloma. No pneumothorax or pleural effusion. No acute osseous or soft tissue abnormality. No acute pathology in the imaged portion of the upper abdomen. Impression: No lymphadenopathy. Mild amount of bilateral ground-glass opacity measuring up to 2.2 cm, likely infectious/inflammatory. Three to six-month follow up is recommended. Solid pulmonary nodules measure up to 5 mm This document has been electronically signed by: Flori Gore MD on 06/28/2024 14:31:02
[2024-06-27] MEDS: iohexoL 350 MG/ML 100 ML INFUS..BTL IV (08:51)
== END 2024-06-27 08:25 | disposition home or self-care (01) ==
LOC: HO.CT 08:24
PROVIDERS: PCP Physician Assistant; Visit Provider Physician Assistant
DX: R59.0 Localized enlarged lymph nodes (principal); R91.1 Solitary pulmonary nodule
CPT/HCPCS: 71260; Q9967

== ENCOUNTER → 2024-06-27 08:26 | Outpatient (BNV) | payer OTHER, SELFPAY | PROVIDERS: PCP Physician Assistant; Visit Provider Radiology Diagnostic Radiology | DX: R91.1 Solitary pulmonary nodule (principal) | CPT/HCPCS: 71260 ==

== ENCOUNTER 2024-08-23 14:17 | Outpatient (AMB) | payer OTHER, SELFPAY ==
--- NOTE | 2024-08-23 14:33 | A.OFFPC_ITS ---
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 Required: No Accompanied by: Self / Same As Patient Allergies hydroxyzine Adverse Reaction (Intermediate, Verified 08/23/24 14:42) OCD isopropyl alcohol Adverse Reaction (Intermediate, Verified 08/23/24 14:42) Hives Medication List - Last Reconciled 08/23/24 by Blas Ingram PA-C alcohol swabs (Alcohol Prep Pads) pad topical buspirone 15 mg PO TID 30 days chlorhexidine gluconate 4% (Antiseptic Skin Cleanser (chlorhexidine)) 1 appl topical ONCE cholestyramine (with sugar) 4 gram 1 ea PO BID dicyclomine 20 mg PO TID ferrous sulfate 325 mg PO BID 90 days gabapentin 300 mg PO TID 90 days ibuprofen 800 mg PO Q8H PRN 30 days lorazepam 0.5 mg PO ONCE PRN 30 days methadone 60 mg PO DAILY ondansetron 4 mg PO Q6H pantoprazole 40 mg PO DAILY 90 days prednisone 5 mg PO DAILY 60 days sumatriptan succinate take 1 tab at onset of headache; if no relief may repeat 1 tab after at least 2 hrs; max = 4 tabs/24 hr PO Tobacco use date assessed: 05/23/24 Dental Screening Dental Screen Date: 05/23/24 HPI Follow-up anemia HPI Details Patient is a 44-year-old male here today for a follow-up visit. Patient's past history significant for opiate dependency, history of hep C, generalized anxiety disorder, ? Relapsing Polychondritis .. . Pulmonary nodules: Patient has a history of pulmonary nodules noted on CT of chest. Recent CT chest did not note hilar lymphadenopathy though did have a Solid pulmonary nodule measuring up to 5 mm in bilateral ground-glass opacities measuring up to 2.2 cm likely infectious versus inflammatory. .. Skin condition? Relapsing polychondritis: He continues to have flare-ups of skin ulcerations over his entire body which seems to be relapsing and remitting. He does not have a clear diagnosis at this time even seeing multiple hearing aid mechanic and a print shop stenographer at this time. 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 --> AT THIS TIME PATIENT IS UNABLE TO RE LIABLY WORK PART-TIME OR FULL-TIME DUE TO BOTH HIS MENTAL HEALTH SEVERE ANXIETY AND HIS UNDIAGNOSED SKIN CONDITION WHICH IS PRESUMED TO BE RELAPSING POLYCHONDRITIS. PAPERWORK FILLED OUT IN OFFICE TODAY FOR [facility]SI BENEFITS ..Anemia: Has been found to be fairly a nemic and has been started on oral iron supplementation. Has gotten endoscopy and colonoscopy was recently started on PPI therapy. His endoscopy and colonoscopy were normal. His anemia has been thought to be multifactorial regarding his autoimmune disease, poor p.o. intake ect.. He is now seeing air conditioning mechanic in now has a central line port to which he gets iron infusions. Most recent hemoglobin much improved at 11. He reports feeling better with much more energy and his skin issues has been resolving. -> AT THIS TIME IS UNCLEAR WHAT HAS CAUS ED HIS ANEMIA. ADVISED TO TALK TO HIS CLOSING COORDINATOR ABOUT BONE MARROW EVALUATION. Continues on gabapentin 300 mg t.i.d. for his skin and joint related pains. Anxiety: Has been elevated lately, does use lorazepam on an as needed basis. Believes his buspirone needs to be increased in dose for better control of his anxiety. He does report having difficulties with sleeping. It has drink quite a bit of [id number] ZzzQuil which has helped him sleep. .. .Opiate dependency: Continues on methad one clinic. Per patient he reports he continues to stay sober from street drugs [facility] Medical History (Updated 08/24/24 @ 07:16 by Blas Ingram PA-C) Chronic hepatitis C Skin lesions Annual physical exam Prolapsed hemorrhoids Hx of opioid abuse Low blood pressure Hepatitis Surgical History History of esophagogastroduodenoscopy (EGD) H/O colonoscopy History of surgery on wrist Family History Father History of cancer Cancer of prostate Mother No problems noted. Brother Cancer of prostate Other Mental problem Substance abuse Social History Household Members: Family Housing: Apartment Are you a primary medical care administrator to a significant other at home: No Do you presently have visiting nurse or other home services: No Alcohol intake: never Patient Tobacco Use Status: Former Tobacco user Cigarettes Per Day: 1 e-Cigarette/Vaping Use: Never Used Second Hand Smoke Exposure: No Substance Use Type: Former Substance User, Heroin, Marijuana, Methamphetamine and Other service: No Current occupational status: unemployed Cognitive needs: No Hearing needs: No Vision needs: No Questionnaire PHQ-9 Over the last 2 weeks, how often have you been bothered by any of the following problems? 1. Little interest or pleasure in doing things: not at all 2. Feeling down, depressed, or hopeless: not at all 3. Trouble falling or staying asleep, or sleeping too much: not at all 4. Feeling tired or having little energy: not at all 5. Poor appetite or overeating: nearly every day 6. Feeling bad about yourself - or that you are a failure or have let yourself or your family down: not at all 7. Trouble concentrating on things, such as reading the newspaper or watching television: more than half the days 8. Moving or speaking so slowly that other people could have noticed. Or the opposite - being so fidgety or restless that you have been moving around a lot more than usual: more than half the days 9. Thoughts that you would be better off or of hurting yourself in some way: not at all Total score: 7 Depression Screening Interpretation: Negative Depression Screening Done: Yes 52410 - PHQ-9 Billing: Yes Source: Developed by Drs. Elgin Davis, Idalia Schulz, Mukesh Bro and colleagues, with an educational stanford from [employer]. Thrive Questionnaire Date Thrive assessed: 08/23/24 I am a: Patient What is your living situation today?: I have a steady place to live Within the past 12 months, did the food you bought not last and you didn't have the money to get more?: Never true Within the past 12 months, did you worry whether your food would run out before you got money to buy more?: Never true Do you have trouble paying for medicines?: No Do you have trouble getting transportation to medical appointments?: No Do you have trouble paying your heating and electricity bill?: No Do you have trouble taking care of your child, family member or friend?: No Do you have trouble with day-to-day activities such as bathing, preparing meals, shopping, managing finances, etc.?: No Are you currently unemployed and looking for a job?: I choose not to answer this question Are you interested in more education?: No Please select the resources that you would like help with: None Currently or been in a relationship where the following occur: No concerns reported THRIVE Score: 0 AUDIT C Alcohol Use Questionnaire (AUDIT-C) 1. How often do you have a drink containing alcohol?: Never 3. How often do you have six or more drinks on one occasion?: Never Total Score: 0 ADRIAN-7 AMB Questionnaire ADRIAN-7 Date ADRIAN - 7 assessed: 08/23/24 Feeling nervous, anxious, or on edge: 0 = Not at all Not being able to stop or control worryin = Not at all Worrying too much about different things: 0 = Not at all Trouble relaxin = Several days Being so restless that it is hard to sit still: 1 = Several days Becoming easily annoyed or irritable: 0 = Not at all Feeling afraid as if something awful might happen: 0 = Not at all Total ADRIAN-7 score (0-4 normal; 5-9 mild; 10-14 moderate; 15-21 severe): 2 Source: Developed by Drs. Elgin Davis, Idalia Schulz, Mukesh Bro and colleagues, with an educational stanford from [employer]. ADRIAN-7 Assessment Billing ADRIAN-7 Assessment Tool: ADRIAN-7 Assessment 70786 Review of Systems Const Denies headache(s) Eyes Denies loss of vision ENT Denies vertigo, Denies dizziness, Denies headache(s) and Denies sore throat Card Denies chest pain, Denies leg edema and Denies lightheadedness Resp Denies cough, Denies hemoptysis and Denies wheezing GI Denies abdominal pain, Denies melena, Denies constipation, Denies diarrhea and Denies vomiting Denies dysuria, Denies urinary frequency and Denies urinary urgency Musc Denies arthralgias, Denies joint swelling, Denies numbness and Denies tingling Neuro Denies Abnormal speech present, Denies behavioral changes, Denies vertigo, Denies dizziness, Denies headache(s), Denies loss of vision, Denies memory loss, Denies numbness and Denies tingling Psych Denies anxiety, Denies behavioral changes, Denies depression, Denies memory loss and Denies panic attacks Mike/Lymph Denies easy bleeding and Denies easy bruising Aller/Immun Denies wheezing Physical exam (Primary Care) Vital Signs: Last Vital Signs Temp 97.3 F 08/23/24 14:34 Pulse 95 08/23/24 14:34 BP 120/86 08/23/24 14:34 Pulse Ox 100 08/23/24 14:34 Oxygen Delivery Method Room Air 08/23/24 14:34 BMI result Body Mass Index 33.6 Tobacco/Smoking Status: Tobacco use Status Tobacco use date assessed 05/23/24 08/23/24 14:33 Patient Tobacco Use Status Former Tobacco user 08/23/24 14:33 e-Cigarette/Vaping Use Never Used 08/23/24 14:33 PHQ-9: PHQ-9 Score PHQ-9: Total score 7 08/23/24 14:52 Depression Screening Interpretation: Negative Thrive Assessment: Date of Thrive Assessment Date Thrive assessed 08/23/24 08/23/24 14:39 Currently or been in a relationship where the following occur: No concerns reported Const General: healthy appearing, no acute distress, alert and awake Nutritional Appearance: well nourished Orientation/consciousness: oriented to person, oriented to place and oriented to time HENMT Ears: TM's normal bilaterally General nose exam: Normal nasal mucous membranes and turbinates present Eyes Conjunctivae: conjunctivae normal Sclerae: sclerae normal Pupils: Equal, round and reactive pupils present Neck Neck: Yes no lymphadenopathy and Yes no JVD Thyroid: Thyroid normal Carotids: no bruits Resp Effort & Inspection: normal respiratory effort and not tachypneic Auscultation: no crackles, no rales, no rhonchi and no wheezes Cardio Rate: regular rate Rhythm: regular rhythm Heart sounds: no murmurs and normal S1 and S2 GI Palpation (GI): Soft to palpation, nontender, no hepatomegaly and no splenomegaly Auscultation: normal bowel sounds Skin Other: MULTIPLE AREAS OVER HIS BODY WITH SKIN ULCERATIONS PARTICULARLY OVER HIS UPPER EXTREMITIES, TORSO. General skin exam: rashes and/or lesions noted and dry skin Neuro General: oriented to person, oriented to place and oriented to time Cranial nerves: Yes Equal, round and reactive pupils present Speech: No Abnormal speech present Gait exam (Neuro): Normal gait present Motor exam (neuro): no tremor noted Extrem Right upper extremity: full ROM Left upper extremity: full ROM Right lower extremity: full ROM; no edema Left lower extremity: full ROM; no edema Psych Mental Status: mental status grossly normal Speech and movement: Normal speech and movement present Affect: normal affect Attitude: cooperative Thought process: Normal thought process present Mental Status Exam Appearance/Clothing: Neat and appropriate Eye Contact: WNL Build: Overweight Posture: WNL Body Movement: Restless Behavior: Within Normal Limits Speech: Within Normal Limits Mood: Other (Vary depending on medical condition ) Affect: Within Normal Limits Expression: Within Normal Limits Perception - Hallucinations: Within Normal Limits Thought Content: Within Normal Limits Thought Process: Within Normal Limits Intellectual Functioning: Within Normal Limits Intelligence Estimate: Average Orientation: Within Normal Limits Memory: Within Normal Limits Insight: Within Normal Limits Judgement: Within Normal Limits Past Attempts to Harm Self or Others Reported: No Self Abuse Thoughts Reported: No Suicidal Thoughts Reported: No Aggressive Thoughts Reported: Yes (depends on mood ) Coding Level of Care Code Est Pt Level 4 (11058) Diagnoses Relapsing polychondritis M94.1 Primary insomnia F51.01 Insomnia type: primary Other specified nutritional anemias D53.8 Anemia type: other cause Other causes of anemia: nutritional, other Uncomplicated opioid dependence F11.20 Substance use status: uncomplicated ADRIAN (generalized anxiety disorder) F41.1 Additional Codes ADRIAN-7 Assessment Billing - ADRIAN-7 Assessment Tool: ADRIAN-7 Assessment 12081 ([id number]) PHQ-9 - 47943 - PHQ-9 Billing: Yes ([id number]) Assessment & Plan Assessment & Plan (1) Relapsing polychondritis: Code(s): M94.1 - Relapsing polychondritis Category: Medical Plan: As per HPI patient has seen multiple hearing aid mechanic about his skin issue. Resolving diagnosis at this time is relapsing polychondritis. He recently has had a flare-up of skin ulceration worse particularly over his arms which also comes along with watery diarrhea. Since his anemia has been more managed with iron IV infusions his skin seems to has been clearing up. (2) Insomnia: Code(s): G47.00 - Insomnia, unspecified Category: Medical Qualifiers: Insomnia type: primary Qualified Code(s): F51.01 - Primary insomnia Plan: As per HPI patient continues use quite a bit of ZzzQuil before bed to help sleep. We have discussed Seroquel and trazodone though have interaction with his methad one maintenance medication. (3) Anemia: Code(s): D64.9 - Anemia, unspecified Category: Medical Qualifiers: Anemia type: other cause Other causes of anemia: nutritional, other Q ualified Code(s): D53.8 - Other specified nutritional anemias Plan: As per HPI patient had significant anemia. Endoscopy and colonoscopy without any significant bleeding noted. He is seeing Hematology and does have a central line to which he is getting IV iron infusions. Advised to talk to his air conditioning mechanic about bone marrow eval uation. (4) Opiate dependence: Comment: Patient may have Behcets or other autoimmune condition causing ulcers. It doesnt look like porphyria which can be associated with Hepatitis C. Also neurodermatitis,looks like area picked at as well by patient. Herpes simplex possible groin area (HIV and syphilis negative) Also opioid or other drug use such as xylazine or MRSA can cause ulcers (no response to antibiotics) and denies drug use. Code(s): F11.20 - Opioid dependence, uncomplicated Category: Medical Qualifiers: Substance use status: uncomplicated Qualified Code(s): F11.20 - Opioid dependence, uncomplicated Plan: Patient continues to go to a methadone clinic and per patient's stays away from any illicit opiate use. (5) ADRIAN (generalized anxiety disorder): Code(s): F41.1 - Generalized anxiety disorder Category: Medical Plan: Patient's ADRIAN-7 score positive for anxiety which has been existing condition for him. He does use lorazepam on a very limited as needed basis which works well for his high points of anxiety. Otherwise continues on BuSpar which seems to be somewhat helpful.
[2024-08-23 14:34] VITALS: BP 120/86; PULSE 95; TEMP 36.3; O2SAT 100; BMI 33.6
--- OUTSIDE RECORDS SUMMARY | 2024-08-23 17:02 | XMS_ITS | Patient Health Record ---
Author Organization [facility] Address [address] [place] [address] Care Team Providers Care Flotation Tank Operator Name Role Phone Blas Ingram PA-C Primary Care Provider Jr Paz Unavailable [phone] Marilyn Atwood Unavailable [phone] Allergies Allergen (clinical drug ingredient) Drug/Non Drug Allergy documented on EMR Reaction Allergy Type Onset Date Status Isopropyl Alcohol Unknown Drug Allergy Active hydroxyzine Hydroxyzine Unknown Drug Allergy Act tate Reason For Referral No Information Medications Medication SIG (Take, Route, Frequency, Duration) Notes Start Date End Date Status Permethrin 5 % 1 application Food Prep Worker ally Two times a Week 01/20/2024 Active SUMAtriptan Succinate 01/20/2024 Active Ondansetron 4 MG 1 tablet on the tong ue and allow to dissolve Orally Once a day; Duration: 30 day(s) 01/20/2024 Active Pantoprazole Sodium 40 MG 1 tablet 1/2 t o 1 hour before morning meal Orally Once a day; Duration: 30 day(s) 01/20/2024 Active LORazepam 0.5 MG 1 tablet at bedtime as needed Orally Once a day 01/20/2024 Active Methadone HCl 01/20/2024 Activ e Gabapentin 300 MG 1 capsule Orally Onc e a day; Duration: 30 day(s) 01/20/2024 Active Ibuprofen 800 MG 1 tablet with food o r milk as needed Orally every 8 hrs 01/20/2024 Active Chlorhexidine Gluconate 4 % as directed Externally 01/20/2024 Active Ferrous Sulfate 325 (65 Fe) MG 1 tablet Orally Three times a Week; Duration: 30 day(s) 01/20/2024 Active busPIRone HCl 10 MG 1 tablet Orally Twic e a day 01/20/2024 Active Problems Problem Type SNOMED Code ICD Code Onset Dates Problem Status W/U Status Risk Notes Problem Opioid abuse wit h intoxication, unspecified (F11.129) Active confirmed Problem Chronic ulcer of skin (36637927) 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) Active confirmed Problem Relapsing polychondritis (11416577) 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 Problem Non-pressure chronic ulcer of unspecified part of right lower leg with other specified severity (L97.918) Active confirmed Vital Signs Heart Rate 101 /min 03/27/2024 Temperature 97.4 degrees Fahrenheit 03/27/2024 Respiratory Rate 18 /min 03/27/2024 Height-cm 165.1 cm 03/27/2024 Oximetry 98 % 03/06/2024 Blood pressure diastolic 90 mm Hg 03/27/2024 Weight-kg 85.73 kg 03/06/2024 Height 65 in 03/27/2024 Blood pressure systolic 148 mm Hg 03/27/2024 Weight 189 lbs 03/06/2024 BMI 31.45 kg/m2 03/06/2024 Encounters Encounter Location Date Provider Diagnosis [address] [address] 01/24/2024 Jr Bangura Non-pressure chronic ulcer of skin of other sites with fat layer exposed L98.492 ; Non-pressure chronic ulcer of skin of other sites limited to breakdown of skin L98.491 and Non-pressure chronic ulcer of unspecified part of right lower leg with other specified severity L97.[address] [address] 01/31/2024 Jr Bangura Non-pressure chronic ulcer of skin of other sites limited to breakdown of skin L98.491 ; Non-pressure chronic ulcer of skin of other sites with fat layer exposed L98.492 and Non-pressure chronic ulcer of unspecified part of right lower leg with other specified severity L97.[address] [address] 02/14/2024 Jr Bangura Non-pressure chronic ulcer of skin of other sites limited to breakdown of skin L98.[address] [address] 03/06/2024 Marilyn Atwood Non-pressure chronic ulcer of skin of other sites limited to breakdown of skin L98.[address] [address] 03/27/2024 Jr Bangura Non-pressure chronic ulcer of skin of other sites limited to breakdown of skin L98.[address] [address] 01/20/2024 Jr Bangura Assessments Encounter Date Diagnosis (ICD Code) Assessment Notes Treatment Notes Treatment Clinical Notes Section Notes 01/24/2024 Non-pressure chronic ulcer of skin of other sites limited to breakdown of skin (ICD-10 - L98.491) 01/24/2024 Non-pressure chronic ulcer of skin of other sites with fat layer exposed (ICD-10 - L98.492) 01/31/2024 Non-pressure chronic ulcer of skin of other sites limited to breakdown of skin (ICD-10 - L98.491) 01/31/2024 Non-pressure chronic ulcer of skin of other sites with fat layer exposed (ICD-10 - L98.492) 02/14/2024 Non-pressure chronic ulcer of skin of other sites limited to breakdown of skin (ICD-10 - L98.491) 03/06/2024 Non-pressure chronic ulcer of skin of other sites limited to breakdown of skin (ICD-10 - L98.491) 03/27/2024 Non-pressure chronic ulcer of skin of other sites limited to breakdown of skin (ICD-10 - L98.491) 01/31/2024 Non-pressure chronic ulcer of unspecified part of right lower leg with other specified severity (ICD-10 - L97.918) wounds have resolved to right lower extremity on 01/31/24 01/24/2024 Non-pressure chronic ulcer of unspecified part of right lower leg with other specified severity (ICD-10 - L97.918) 01/24/2024 Shantel Eisenberg is a 43-year-old male that presents today for initial evaluation and treatment of wound to right upper arm Past medical history is significant for opiate dependence (on methadone with oversite at methadone clinic), heroin use, methamphetamine use, former smoker, hep c, anxiety, relapsing polychondritis with oversite 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 PCP prescribed cephalexin and Augmentin with no change in wound status. Of note per PCP notes patient is on fci prednisone therapy. Elgin reports that the wounds have occured off and on over the past 5 years and has been to over 5 dermatologists with no substantial diagnosis. He reports 5 years ago he had a bout of diarrhea x 18 times then noticed the ulcer. At that time believed it to be crohns related, however this has been ruled out since then. On assessment today, Elgin is noted to be afebrile and other VS were within normal limits. The patient denies pain or discomfort related to wound. We removed dressings, with no suggestive s/s of an underlying infectious process. There was no foul odor noted. He is noted with clusters of wounds to each limb. 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 I then performed debridement to remove devitalized tissues as outlined. He tolerated procedure well. The wound sites were then cleansed with wound cleanser and thereafter, we applied xeroform onto the wound sites and zinc to prieto wound areas. The site were then covered with a dry dressing. patient to continue to perform the above dressing changes regularly JACE not inidcated at this timeS/S of infection reviewed and when to go to ED Patient will have FU in one week Reviewed past medical records, labs, hospitalizations, performed a complete wound assessment to assist in the identification of underlying cause of the wound to individualize treatment plan going forward. Will obtain consultations as indicated from different disciplines if not already involved with current care, including but not limited to: vascular intervention, endocrine, diabetic and nutrition education, infectious disease, dermatology, surgery. Will continue to review and assess interventions including but not limited to orthotics, and compression therapy, JACE, labs, and cultures. Documentation will be provided to primary physicians or referring physicians to keep them informed of patients' progress. Due to the many factors that impact the healing of wounds, including but not limited to endocrine disorder, autoimmune disorders, Diabetes, weight gain, cardiovascular disease, poor circulation, and medications, and more not listed, and the role they play on the delay in wound healing, all referrals will be made promptly as well as discussed with patient prior too. We reviewed the importance of multidisciplinary team to maximize wound outcomes.patient verbalized understand and denies questions or concerns at this time A total of 35minutes was spent on this visit (face to face and non face to face) documenting HPI and performing physical exam, reviewing previous notes and testing, reviewing and adjusting treatment plan, counseling the patient on treatment choices, disease process, expected outcomes, and documenting the findings in the note. I, Jr Bangura, MSN, CLOTH BALER, CREDIT PRODUCTS OFFICER-C, examined, evaluated , and treated the patient. Dr. Tasia Swenson was available for any questions or concerns that I may have had. 01/31/2024 Shantel Eisenberg presents today with his mother present for follow-up wounds to right upper extremity, left upper extremity, and right lower extremity. Current treatment with Xeroform. He reports the order for Xeroform did not arrive and was using dry gauze and was sticking to wound and caused pain. No other acute concerns at today's visit. On assessment today, Elgin is noted to be afebrile and other VS were within normal limits. The patient denies pain or discomfort related to wound. We removed dressings, with no suggestive s/s of an underlying infectious process. There was no foul odor noted. He is noted with clusters of wounds to each limb. 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 However, these wounds continue with dry wound beds and fibrinous periwounds Right upper extremity cluster of wounds: These wound are noted with improvement since last visit based on assessment and measurements. However, these wounds is noted with dry wound beds and fibrinous periwounds Right lower extremity cluster of wounds have resolved as evident by 100% epithelialization After examination, I discussed the indication of debridement and they were agreeable. I then performed debridement to remove devitalized tissues as outlined. He tolerated procedure well. The wound sites were then cleansed with wound cleanser and thereafter, we applied Xeroform onto the wound sites and zinc to prieto wound areas. The site were then covered with a dry dressing. Patient to continue to perform the above dressing changes daily reviewed back up wound treatment with wound gel to wound bed and cover with dry dressing if Xeroform does not arrive, however his mother ordered [employer] a pack of Xeroform at today's visit to hold them over until order arrives. The also where educated to call office if dressing do not arrive or any other concerns or questions with wounds. They both verbalized understanding. JACE not indicated at this time S/S of infection reviewed and when to go to ED Patient will have FU in two weeks, then plan to progress to every three weeks I, Jr Bangura, MSN, CLOTH BALER, CREDIT PRODUCTS OFFICER-C, examined, evaluated, and treated the patient. Dr. Tasia Swenson was available for any questions or concerns that I may have had. 02/14/2024 Shantel Eisenberg presents today for follow-up wounds to right upper extremity, left upper extremity. He continues with Xeroform. He reports the order for Xeroform did not arrive and was using dry gauze and was sticking to wound and caused pain. No other acute concerns at today's visit. On assessment today, Elgin is noted to be afebrile and other VS were within normal limits. The patient denies pain or discomfort related to wound. We removed dressings, with no suggestive s/s of an underlying infectious process. There was no foul odor noted. He is noted with clusters of wounds to right upper extremity and no wounds to left upper extremity.. 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 However, these wounds are noted with dry wound beds and fibrinous prieto wounds, with fibrin mesh. After examination, I discussed the indication of debridement and they were agreeable. I then performed debridement to remove devitalized tissues as outlined. He tolerated procedure well. The wound sites were then cleansed with wound cleanser and thereafter, we applied Xeroform onto the wound sites and zinc to prieto wound areas. The site were then covered with a dry dressing. Patient to continue to perform the above dressing changes daily reviewed back up wound treatment with wound gel to wound bed and cover with dry dressing if Xeroform does not arrive, however his mother continues to order [employer] educated to call office if dressing do not arrive or any other concerns or questions with wounds. JACE not indicated at this time S/S of infection reviewed and when to go to ED Patient will have FU in three weeks I, Jr Bangura, MSN, CLOTH BALER, CREDIT PRODUCTS OFFICER-C, examined, evaluated, and treated the patient. Dr. Tasia Swenson was available for any questions or concerns that I may have had. 03/06/2024 Other During the visit, I noted dried blood under 2 of his finger nails and while talking, he started picking the right arm wound with his left thumb fingernail. I explained that he should avoid picking at the wounds/scabs. Overall, he is stable with improvement overall since starting treatment here. He will cont with Xeroform, dcd, romaine daily. I reassured that he has no signs of skin infection and that he may shower without dressings on the arms but to use a non perfumed soap and be gentle with cleansing. He was educated to call office if dressing do not arrive or any other concerns or questions with wounds. S/S of infection reviewed and when to go to ED I, Marilyn Atwood CREDIT PRODUCTS OFFICER-C, examined, evaluated , and treated the patient. Dr. Tasia Swenson was available for any questions or concerns that I may have had. 03/27/2024 Other resolved area to to RUE at todays visit Patient is afebrile with no signs of skin infection. There was 100 % epithelialization noted with no open area. No debridement was performed at todays visit. Encouraged to use protective dressing for next few days for new fragile skin. Patient was educated to call wound clinic with any questions comments or concerns. Thank you for allowing us to care for your wound Patient educated on monitoring arms and not scratching or picking skin to prevent wounds. A total of 30 minutes was spent on this visit (face to face and non face to face) documenting HPI and performing physical exam, reviewing previous notes and testing, reviewing and adjusting treatment plan, counseling the patient on treatment choices, disease process, expected outcomes, and documenting the findings in the note. I, Jr Bangura, MSN, CLOTH BALER, CREDIT PRODUCTS OFFICER-C, examined, evaluated , and treated the patient. Dr. Tasia Swenson was available for any questions or concerns that I may have had. Plan Of Treatment No Information Insurance Providers Payer Name Payer Address Payer Phone Subscriber Number Group Number Insured Name Patient Relationship to Insured Coverage Start Date Coverage End Date [facility] ([facility]) [address] [address] [place], [place] [phone] [id number] Elgin Kent Self - patient is the insured 0 Medical (General) History Medical History History ICD Code Relapsing polychondritis M94.1 Opioid abuse with intoxication, unspecif ied F11.129 Hepatitis K75.9 Hypotension I95.9 Anxiety disorder F41.9 Non-pressure chronic ulcer o f unspecified part of right lower leg with other specified severity L97.918 Non-pressure chronic ulcer of skin of ot her sites with fat layer exposed L98.492 Surgical History Surgery Date(Month/Year) EGD Colonoscopy wrist surgery
== END 2024-08-23 15:17 | disposition home or self-care (01) ==
LOC: HO.HMCH 14:18
PROVIDERS: PCP Physician Assistant; Visit Provider Physician Assistant
DX: M94.1 Relapsing polychondritis (principal); F51.01 Primary insomnia; D53.8 Other specified nutritional anemias; F11.20 Opioid dependence, uncomplicated; F41.1 Generalized anxiety disorder

== ENCOUNTER → 2024-08-23 14:17 | Outpatient (BNVA) | payer OTHER, SELFPAY | PROVIDERS: PCP Physician Assistant; Visit Provider Physician Assistant | DX: F41.1 Generalized anxiety disorder (principal); F11.20 Opioid dependence, uncomplicated; M94.1 Relapsing polychondritis; F51.01 Primary insomnia; D53.8 Other specified nutritional anemias; Z86.19 Personal history of other infectious and parasitic diseases | CPT/HCPCS: 96127; 99212 ==

== ENCOUNTER 2024-11-14 12:41 | Outpatient (AMB) | payer OTHER, SELFPAY ==
--- NOTE | 2024-11-14 12:42 | AM.OFFWIN_ITS ---
Intake Vital Signs 11/14/24 12:43 Height 5 ft Weight 176 lb BMI 34.4 BP 130/90 H Blood Pressure Location Lt brachial Position Sitting Respiration 16 Pulse 84 Pulse Source Pulse Oximeter Temp 98.2 F Temp Source Oral Pulse Oximetry (%) 96 Oxygen Delivery Method Room Air Intake Visit Reasons: ep glass in left outer corner of eye and nose Patient Tobacco Use Status: Former Tobacco user Accompanied by: Self / Same As Patient Allergies hydroxyzine Adverse Reaction (Intermediate, Verified 11/14/24 12:45) OCD isopropyl alcohol Adverse Reaction (Intermediate, Verified 11/14/24 12:45) Hives HPI HPI Comments History of Present Illness Details History of Present Illness - The patient is a 44-year-old male pres enting with a suspected foreign body in the left eye. - The patient reported feeling like ther e was a piece of glass in the outer corner of his eye, which he noticed about an hour prior to the visit. - He mentioned a previous incident where he removed a piece of glass from his body, suggesting a possible source of the current issue. - The patient has no recollection of how the glass might have entered his eye, but he suspects it could be related to a cracked phone or possibly from a cat. Physical Exam General: Cooperative, healthy appearing, comfortable, no acute distress and well developed Orientation: Patient oriented x3 Limitations: No limitations Head: Cut on head Ears: Hearing grossly normal bilaterally Nose: Normal External nose present Face and sinus: Cut on chin Eyes: Corneal abrasion in the left eye at 3 o'clock, no foreign body detected, appearance otherwise normal Neck: Normal visual inspection and Yes full ROM Respiratory: Normal respiratory effort and able to speak in complete sentences. Skin: Cut on arm, no rashes or lesions noted Neuro: Patient oriented x3 Extremities: Normal to inspection [facility] Medical History (Updated 11/14/24 @ 13:00 by Angie Lozada PA-C) Chronic hepatitis C Skin lesions Annual physical exam Prolapsed hemorrhoids Hx of opioid abuse Low blood pressure Hepatitis Surgical History History of esophagogastroduodenoscopy (EGD) H/O colonoscopy History of surgery on wrist Family History Father History of cancer Cancer of prostate Mother No problems noted. Brother Cancer of prostate Other Mental problem Substance abuse Social History Household Members: Family Housing: Apartment Are you a primary home health care social worker to a significant other at home: No Do you presently have visiting nurse or other home services: No Alcohol intake: never Patient Tobacco Use Status: Former Tobacco user Cigarettes Per Day: 1 e-Cigarette/Vaping Use: Never Used Second Hand Smoke Exposure: No Substance Use Type: Former Substance User, Heroin, Marijuana, Methamphetamine and Other service: No Current occupational status: unemployed Cognitive needs: No Hearing needs: No Vision needs: No Review of Systems Const All systems reviewed & are unremarkable except as noted in HPI and below Physical Exam Vital Signs: Last Vital Signs Temp 98.2 F 11/14/24 12:43 Pulse 84 11/14/24 12:43 Resp 16 11/14/24 12:43 BP 130/90 H 11/14/24 12:43 Pulse Ox 96 11/14/24 12:43 Oxygen Delivery Method Room Air 11/14/24 12:43 BMI result Body Mass Index 34.4 Office Procedures Fluorescein eye exam Details: applied 2 gtt's tetracaine to left eye, applied orange dye and looked under fluoroscein light to reveal 0.5cm circular corneal abrasion at 3 o'clock Assessment & Plan Assessment & Plan (1) Left corneal abrasion: Code(s): S05.02XA - Injury of conjunctiva and corneal abrasion without foreign body, left eye, initial encounter Qualifiers: Encounter type: initial encounter Qualified Code(s): S05.02XA - Injury of conjunctiva and corneal abrasion without foreign body, left eye, initial encounter Plan: Patient was informed and verbally consented to the use of an ambient scribe for clinic note documentation during this visit. Left Corneal Abrasion - seen under flouoroscein - Administer erythromycin ophthalmic ointment four times daily to prevent infection and aid healing. - Advise patient to monitor for any changes in vision or pain which develops, and seek further evaluation if symptoms worsen. - Follow-up with an woodworking machine offbearer if symptoms persist or worsen. Orders: Orders AMB Fluorescein eye exam Today S05.02XA - Injury of conjunctiva and corneal abrasion without foreign body, left eye, initial encounter Medications: New erythromycin Apply to left eye 4 times a day while awake 0.5 inches ophthalmic (eye) QID 3.5 grams 0RF Coding Level of Care Code Est Pt Level 3 (74329) Diagnoses Abrasion of left cornea, initial encounter S05.02XA Encounter type: initial encounter
[2024-11-14 12:43] VITALS: BP 130/90; PULSE 84; RESP 16; TEMP 36.8; O2SAT 96; BMI 34.4
--- OUTSIDE RECORDS SUMMARY | 2024-11-14 16:41 | XMS_ITS | Patient Health Record ---
Author Organization [facility] Address [address] [facility] [address] [place] [address] Care Team Providers Care Sustainability Communicator Name Role Phone Blas Ingram PA-C Primary Care Provider Jr Paz Unavailable [phone] Marilyn Atwood Unavailable [phone] Allergies Allergen (clinical drug ingredient) Drug/Non Drug Allergy documented on EMR Reaction Allergy Type Onset Date Status Isopropyl Alcohol Unknown Drug Allergy Active hydroxyzine Hydroxyzine Unknown Drug Allergy Act tate Reason For Referral No Information Medications Medication SIG (Take, Route, Frequency, Duration) Notes Start Date End Date Status Permethrin 5 % 1 application Card Doffer ally Two times a Week 01/20/2024 Active [...] Active confirmed Problem Chronic ulcer of skin (20770151) 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) Active confirmed Problem Relapsing polychondritis (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) 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 Problem Non-pressure [...] 03/06/2024 Encounters Encounter Location Date Provider Diagnosis [address] [address] 01/24/2024 Jr Bangura Non-pressure chronic ulcer of skin of other sites with fat layer exposed L98.492 ; Non-pressure chronic ulcer of skin of other sites limited to breakdown of skin L98.491 and Non-pressure chronic ulcer of unspecified part of right lower leg with other specified severity L97.[address] [address] 01/31/2024 Jr Bangura Non-pressure chronic ulcer of skin of other sites limited to breakdown of skin L98.491 ; Non-pressure chronic ulcer of skin of other sites with fat layer exposed L98.492 and Non-pressure chronic ulcer of unspecified part of right lower leg with other specified severity L97.[address] [address] 02/14/2024 Jr Bangura Non-pressure chronic ulcer of skin of other sites limited to breakdown of skin L98.[address] [address] 03/06/2024 Marilyn Atwood Non-pressure chronic ulcer of skin of other sites limited to breakdown of skin L98.[address] [address] 03/27/2024 Jr Bangura Non-pressure chronic ulcer of skin of other sites limited to breakdown of skin L98.[address] [address] 01/20/2024 Jr Bangura Assessments Encounter Date Diagnosis [...] c, anxiety, relapsing polychondritis with oversite with switch engineer The patient was referred from his PCP who saw him in October for open area to right upper arm. PCP prescribed cephalexin and Augmentin with no change in wound status. Of note per PCP notes patient is on prison prednisone therapy. [place] reports that the wounds [...] in the note. I, Jr Bangura, MSN, COMMUNITY RELATIONS REPRESENTATIVE, PARTY COORDINATOR-C, examined, evaluated , and treated the patient. [...] every three weeks I, Jr Bangura, MSN, COMMUNITY RELATIONS REPRESENTATIVE, PARTY COORDINATOR-C, examined, evaluated, and treated the patient. Dr. [...] in three weeks I, Jr Bangura, MSN, COMMUNITY RELATIONS REPRESENTATIVE, PARTY COORDINATOR-C, examined, evaluated, and treated the patient. Dr. [...] to go to ED I, Marilyn Atwood PARTY COORDINATOR-C, examined, evaluated , and treated the patient. [...] in the note. I, Jr Bangura, MSN, COMMUNITY RELATIONS REPRESENTATIVE, PARTY COORDINATOR-C, examined, evaluated , and treated the patient. Dr. Tasia Swenson was available for any questions or concerns that I may have had. Plan Of Treatment No Information Insurance Providers Payer Name Payer Address Payer Phone Subscriber Number Group Number Insured Name Patient Relationship to Insured Coverage Start Date Coverage End Date [facility] [place] [place] [address] [address] [place], [place] [id number] El[place] Kent Self - patient is the [...]
== END 2024-11-14 13:04 | disposition home or self-care (01) ==
PROVIDERS: PCP Physician Assistant; Visit Provider Physician Assistant
DX: S05.02XA Injury of conjunctiva and corneal abrasion without foreign body, left eye, initial encounter (principal)

== ENCOUNTER → 2024-11-14 12:41 | Outpatient (BNVA) | payer OTHER, SELFPAY | PROVIDERS: PCP Physician Assistant; Visit Provider Physician Assistant | DX: S05.02XA Injury of conjunctiva and corneal abrasion without foreign body, left eye, initial encounter (principal); X58.XXXA Exposure to other specified factors, initial encounter; Y93.9 Activity, unspecified; Y92.9 Unspecified place or not applicable; Y99.9 Unspecified external cause status | CPT/HCPCS: 99212 ==

== ENCOUNTER 2024-11-30 14:04 | Outpatient (AMB) | payer OTHER, SELFPAY ==
--- NOTE | 2024-11-30 14:11 | A.OFFPC_ITS ---
Vital Signs 11/30/24 14:14 Height 5 ft Weight 182 lb 6 oz BMI 35.6 BP 120/88 Blood Pressure Location Lt brachial Position Sitting Pulse 91 Pulse Source Pulse Oximeter Temp 97.1 F Temp Source Temporal Artery Scan Pulse Oximetry (%) 96 Oxygen Delivery Method Room Air Intake Visit Reasons: Follow Up Intake Note: Patient is here to follow up on Polyarthralgia, Migraine, IBS. Oracle Ebs Developer Required: No Senior Lead Java Developer: Present Accompanied by: Mother Allergies hydroxyzine Adverse Reaction (Intermediate, Verified 11/30/24 14:29) OCD isopropyl alcohol Adverse Reaction (Intermediate, Verified 11/30/24 14:29) Hives Medication List - Last Reconciled 11/30/24 by Blas Ingram PA-C buspirone 15 mg PO TID 30 days dicyclomine 20 mg PO TID gabapentin 600 mg PO TID 90 days ibuprofen 800 mg PO Q8H PRN 30 days lorazepam 0.5 mg PO ONCE PRN 30 days methadone 60 mg PO DAILY ondansetron 4 mg PO Q6H pantoprazole 40 mg PO DAILY 90 days sumatriptan succinate take 1 tab at onset of headache; if no relief may repeat 1 tab after at least 2 hrs; max = 4 tabs/24 hr PO Tobacco use date assessed: 11/30/24 Dental Screening Dental Screen Date: 05/23/24 HPI Follow Up HPI Details Patient is a 44-year-old male here today for a follow-up visit. Patient's past history significant for opiate dependency, history of hep C, generalized anxiety disorder, ? Relapsing Polychondritis . Pulmonary nodules: Patient has a history of pulmonary nodules noted on CT of chest. Recent CT chest did not note hilar lymphadenopathy though did have a Solid pulmonary nodule measuring up to 5 mm in bilateral ground-glass opacities measuring up to 2.2 cm likely infectious versus inflammatory. .. ? Rectal prolapse/external hemorrhoids: The patient has a history of chronic diarrhea, which has persisted for several years, significantly impacting his daily activities and quality of life. He reports frequent bowel movements, often triggered by eating or drinking, and has tried various interventions including loperamide and dietary modifications with limited success. The patient also suffers from prolapsed hemorrhoids, which are exacerbated by his chronic diarrhea. He describes significant discomfort and has been referred to a specialist for further evaluation, though there have been delays in obtaining an appointment. .. Obesity: Has been noted to gained weight since last office visit. Today's BMI at 35.6 .. Skin condition? Relapsing polychondritis: He continues to have flare-ups of skin ulcerations over his entire body which seems to be relapsing and remitting. He does not have a clear diagnosis at this time even seeing multiple embroidery worker and a aircraft servicer previously . --> AT THIS TIME PATIENT IS UNABLE TO RE LIABLY WORK PART-TIME OR FULL-TIME DUE TO BOTH HIS MENTAL HEALTH SEVERE ANXIETY AND HIS UNDIAGNOSED SKIN CONDITION WHICH IS PRESUMED TO BE RELAPSING POLYCHONDRITIS. PAPERWORK FILLED OUT IN OFFICE TODAY FOR SSI BENEFITS .. Anemia: Has been found to be fairly anemic and has been started on oral iron supplementation. Has gotten endoscopy and colonoscopy was recently started on PPI therapy. His endoscopy and colonoscopy were normal. His anemia has been thought to be multifactorial regarding his autoimmune disease, poor p.o. intake ect.. He is now seeing chemical production engineer in now has a central line port to which he gets iron infusions. Most recent hemoglobin much improved at 11. He reports feeling better with much more energy and his skin issues has been resolving. -> AT THIS TIME IS UNCLEAR WHAT HAS CAUS ED HIS ANEMIA. ADVISED TO TALK TO HIS SUPPORT ARCHITECT ABOUT BONE MARROW EVALUATION. Continues on gabapentin 300 mg t.i.d. for his skin and joint related pains. Anxiety: Has been elevated lately, does use lorazepam on an as needed basis. Believes his buspirone needs to be increased in dose for better control of his anxiety. He does report having difficulties with sleeping. It has drink quite a bit of lhau-zwd-mmihfah ZzzQuil which has helped him sleep. .. .[facility] Per patient he reports he continues to stay sober from street drugs [facility] Medical History (Updated 12/04/24 @ 08:05 by Blas Ingram PA-C) Chronic hepatitis C Skin lesions Annual physical exam Prolapsed hemorrhoids Hx of opioid abuse Low blood pressure Hepatitis Surgical History History of esophagogastroduodenoscopy (EGD) H/O colonoscopy History of surgery on wrist Family History Father History of cancer Cancer of prostate Mother No problems noted. Brother Cancer of prostate Other Mental problem Substance abuse Social History Household Members: Family Housing: Apartment Are you a primary home visit field care manager to a significant other at home: No Do you presently have visiting nurse or other home services: No Alcohol intake: never Patient Tobacco Use Status: Former Tobacco user Cigarettes Per Day: 1 e-Cigarette/Vaping Use: Never Used Second Hand Smoke Exposure: Yes Substance Use Type: Former Substance User, Heroin, Marijuana, Methamphetamine and Other service: No Current occupational status: unemployed Cognitive needs: No Hearing needs: No Vision needs: No Questionnaire Thrive Questionnaire Date Thrive assessed: 08/16/24 I am a: Patient What is your living situation today?: I have a steady place to live Within the past 12 months, did the food you bought not last and you didn't have the money to get more?: Never true Within the past 12 months, did you worry whether your food would run out before you got money to buy more?: Never true Do you have trouble paying for medicines?: No Do you have trouble getting transportation to medical appointments?: No Do you have trouble paying your heating and electricity bill?: No Do you have trouble taking care of your child, family member or friend?: No Do you have trouble with day-to-day activities such as bathing, preparing meals, shopping, managing finances, etc.?: No Are you currently unemployed and looking for a job?: I choose not to answer this question Are you interested in more education?: No Please select the resources that you would like help with: None Currently or been in a relationship where the following occur: No concerns reported THRIVE Score: 0 ADRIAN-7 AMB Questionnaire ADRIAN-7 Date ADRIAN - 7 assessed: 08/23/24 Source: Developed by Drs. Elgin Davis, Idalia Schulz, Mukesh Bro and colleagues, with an educational stanford from [employer]. Review of Systems Const Denies headache(s) Eyes Denies loss of vision ENT Denies vertigo, Denies dizziness, Denies headache(s) and Denies sore throat Card Denies chest pain, Denies leg edema and Denies lightheadedness Resp Reports change in phlegm color, Reports cough, Denies hemoptysis and Denies wheezing GI Denies abdominal pain, Denies melena, Denies constipation, Denies diarrhea and Denies vomiting Denies dysuria, Denies urinary frequency and Denies urinary urgency Musc Denies arthralgias, Denies joint swelling, Denies numbness and Denies tingling Neuro Denies Abnormal speech present, Denies behavioral changes, Denies vertigo, Denies dizziness, Denies headache(s), Denies loss of vision, Denies memory loss, Denies numbness and Denies tingling Psych Denies anxiety, Denies behavioral changes, Denies depression, Denies memory loss and Denies panic attacks Mike/Lymph Denies easy bleeding and Denies easy bruising Aller/Immun Denies wheezing Physical exam (Primary Care) Vital Signs: Last Vital Signs Temp 97.1 F 11/30/24 14:14 Pulse 91 11/30/24 14:14 BP 120/88 11/30/24 14:14 Pulse Ox 96 11/30/24 14:14 Oxygen Delivery Method Room Air 11/30/24 14:14 BMI result Body Mass Index 35.6 Tobacco/Smoking Status: Tobacco use Status Tobacco use date assessed 11/30/24 11/30/24 14:21 Patient Tobacco Use Status Former Tobacco user 11/30/24 14:21 e-Cigarette/Vaping Use Never Used 11/30/24 14:21 Thrive Assessment: Date of Thrive Assessment Date Thrive assessed 08/16/24 11/30/24 14:21 Currently or been in a relationship where the following occur: No concerns reported Const General: healthy appearing, no acute distress, alert and awake Nutritional Appearance: well nourished Orientation/consciousness: oriented to person, oriented to place and oriented to time [facility] Ears: TM's normal bilaterally General nose exam: Normal nasal mucous membranes and turbinates present Eyes Conjunctivae: conjunctivae normal Sclerae: sclerae normal Pupils: Equal, round and reactive pupils present Neck Neck: Yes no lymphadenopathy and Yes no JVD Thyroid: Thyroid normal Carotids: no bruits Resp Effort & Inspection: normal respiratory effort and not tachypneic Auscultation: no crackles, no rales, no rhonchi and no wheezes Cardio Rate: regular rate Rhythm: regular rhythm Heart sounds: no murmurs and normal S1 and S2 GI Palpation (GI): Soft to palpation, nontender, no hepatomegaly and no splenomegaly Auscultation: normal bowel sounds Skin General skin exam: no rashes or lesions noted and dry skin Neuro General: oriented to person, oriented to place and oriented to time Cranial nerves: Yes Equal, round and reactive pupils present Speech: No Abnormal speech present Gait exam (Neuro): Normal gait present Motor exam (neuro): no tremor noted Extrem Right upper extremity: full ROM Left upper extremity: full ROM Right lower extremity: full ROM; no edema Left lower extremity: full ROM; no edema Psych Mental Status: mental status grossly normal Speech and movement: Normal speech and movement present Affect: normal affect Attitude: cooperative Thought process: Normal thought process present Coding Level of Care Code Est Pt Level 4 (25409) Diagnoses Rectal prolapse K62.3 Infected lesion in nose J34.89 Relapsing polychondritis M94.1 Uncomplicated opioid dependence F11.20 Substance use status: uncomplicated Productive cough R05.8 Assessment & Plan Assessment & Plan (1) Rectal prolapse: Code(s): K62.3 - Rectal prolapse Category: Medical Plan: The patient will be referred to a specialist for further evaluation of his prolapsed hemorrhoids, with a focus on managing his chronic diarrhea to alleviate symptoms. (2) Infected lesion in nose: Code(s): J34.89 - Other specified disorders of nose and nasal sinuses Category: Medical Plan: Patient does appear to erythematous intranasal mucosa, will supply patient with a topical antibiotic ointment to use in the inner aspects of his nose. (3) Relapsing polychondritis: Code(s): M94.1 - Relapsing polychondritis Category: Medical Plan: As per HPI patient has seen multiple embroidery worker about his skin issue. Resolving diagnosis at this time is relapsing polychondritis. He recently has had a flare-up of skin ulceration worse particularly over his arms which also comes along with watery diarrhea. Since his anemia has been more managed with iron IV infusions his skin seems to has been clearing up. (4) Opiate dependence: Comment: Patient may have Behcets or other autoimmune condition causing ulcers. It doesnt look like porphyria which can be associated with Hepatitis C. Also neurodermatitis,looks like area picked at as well by patient. Herpes simplex possible groin area (HIV and syphilis negative) Also opioid or other drug use such as xylazine or MRSA can cause ulcers (no response to antibiotics) and denies drug use. Code(s): F11.20 - Opioid dependence, uncomplicated Category: Medical Qualifiers: Substance use status: uncomplicated Qualified Code(s): F11.20 - Opioid dependence, uncomplicated Plan: Patient continues to go to a methadone clinic and per patient's stays away from any illicit opiate use. (5) Productive cough: Code(s): R05.8 - Other specified cough Category: Medical Plan: Patient does report having somewhat of a productive cough over last few weeks. He reports he coughs up grayish appearing sputum. Of note does have pulmonary nodule infectious versus inflammatory noted on CT of chest in spring. Will send patient for x-ray chest for evaluation. Will consider oral antibiotic if pneumonia present Orders: Orders XR chest 2V 11/30/24 J40 - Bronchitis, not specified as acute or chronic Comprehensive [place]. Panel Fast 11/30/24 Z13.1 - Encounter for screening for diabetes mellitus Vitamin D 25-OH Total 11/30/24 E56.9 - Vitamin deficiency, unspecified IRON PROFILE 11/30/24 D50.9 - Iron deficiency anemia, unspecified, D53.8 - Other specified nutritional anemias Prostate Specific Antigen Scr 11/30/24 Z12.5 - Encounter for screening for malignant neoplasm of prostate Complete Blood Count no Diff 11/30/24 Z13.1 - Encounter for screening for diabetes mellitus Vitamin B12 and Folate 11/30/24 E53.8 - Deficiency of other specified B group vitamins, E56.9 - Vitamin deficiency, unspecified Referrals Rheumatology Referral M94.1 - Relapsing polychondritis General Surgery Referral K62.3 - Rectal prolapse Medications: New gabapentin 600 mg PO TID 270 tabs 1RF 90 days M25.50 - Pain in unspecified joint sumatriptan succinate take 1 tab at onset of headache; if no relief may repeat 1 tab after at least 2 hrs; max = 4 tabs/24 hr PO 9 tabs 0RF 30 days G43.909 - Migraine, unspecified, not intractable, without status migrainosus mupirocin 2% (Centany) 1 appl topical BID 22 grams 1RF 30 days J34.89 - Other specified disorders of nose and nasal sinuses Discontinued gabapentin Discontinued Reason: Doctor's Order 300 mg PO TID 90 days 270 caps 1RF M94.1 - Relapsing polychondritis sumatriptan succinate Discontinued Reason: Doctor's Order take 1 tab at onset of headache; if no relief may repeat 1 tab after at least 2 hrs; max = 4 tabs/24 hr PO 10 tabs 3RF G43.909 - Migraine, unspecified, not intractable, without status migrainosus
[2024-11-30 14:14] VITALS: BP 120/88; PULSE 91; TEMP 36.2; O2SAT 96; BMI 35.6
--- OUTSIDE RECORDS SUMMARY | 2024-11-30 15:42 | XMS_ITS | Patient Health Record ---
Author Organization [facility] Address [address] [facility] [address] [place] [address] Care Team Providers Care Publication Specialist Name Role Phone Blas Ingram PA-C Primary Care Provider Jr Paz Unavailable [phone] Marilyn Atwood Unavailable [phone] Allergies Allergen (clinical drug ingredient) Drug/Non Drug Allergy documented on EMR Reaction Allergy Type Onset Date Status Isopropyl Alcohol Unknown Drug Allergy Active hydroxyzine Hydroxyzine Unknown Drug Allergy Act tate Reason For Referral No Information Medications Medication SIG (Take, Route, Frequency, Duration) Notes Start Date End Date Status Permethrin 5 % 1 application Internal Combustion Engine Subassembler ally Two times a Week 01/20/2024 Active [...] Active confirmed Problem Chronic ulcer of skin (60194730) 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) Active confirmed Problem Relapsing polychondritis (99579021) 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 Problem Non-pressure [...] 03/06/2024 Encounters Encounter Location Date Provider Diagnosis [address] [address] 01/24/2024 Jr Bangura Non-pressure chronic ulcer of skin of other sites with fat layer exposed L98.492 ; Non-pressure chronic ulcer of skin of other sites limited to breakdown of skin L98.491 and Non-pressure chronic ulcer of unspecified part of right lower leg with other specified severity L97.[address] [address] 01/31/2024 Jr Bangura Non-pressure chronic ulcer of skin of other sites limited to breakdown of skin L98.491 ; Non-pressure chronic ulcer of skin of other sites with fat layer exposed L98.492 and Non-pressure chronic ulcer of unspecified part of right lower leg with other specified severity L97.[address] [address] 02/14/2024 Jr Bangura Non-pressure chronic ulcer of skin of other sites limited to breakdown of skin L98.[address] [address] 03/06/2024 Marilyn Atwood Non-pressure chronic ulcer of skin of other sites limited to breakdown of skin L98.[address] [address] 03/27/2024 Jr Bangura Non-pressure chronic ulcer of skin of other sites limited to breakdown of skin L98.[address] [address] 01/20/2024 Jr Bangura Assessments Encounter Date Diagnosis [...] c, anxiety, relapsing polychondritis with oversite with animal sticker The patient was referred from his PCP who saw him in October for open area to right upper arm. PCP prescribed cephalexin and Augmentin with no change in wound status. Of note per PCP notes patient is on [facility] prednisone therapy. [place] reports that the wounds [...] in the note. I, Jr Bangura, MSN, GAS CUTTER, MORTGAGE LENDER-C, examined, evaluated , and treated the patient. [...] every three weeks I, Jr Bangura, MSN, GAS CUTTER, MORTGAGE LENDER-C, examined, evaluated, and treated the patient. Dr. [...] in three weeks I, Jr Bangura, MSN, GAS CUTTER, MORTGAGE LENDER-C, examined, evaluated, and treated the patient. Dr. [...] to go to ED I, Marilyn Atwood MORTGAGE LENDER-C, examined, evaluated , and treated the patient. [...] in the note. I, Jr Bangura, MSN, GAS CUTTER, MORTGAGE LENDER-C, examined, evaluated , and treated the patient. Dr. Tasia Swenson was available for any questions or concerns that I may have had. Plan Of Treatment No Information Insurance Providers Payer Name Payer Address Payer Phone Subscriber Number Group Number Insured Name Patient Relationship to Insured Coverage Start Date Coverage End Date [facility] [place] [place] [address] [address] [place], [place] [id number] [place] Kent Self - patient is the [...]
== END 2024-11-30 14:49 | disposition home or self-care (01) ==
LOC: HO.HMCH 14:05
PROVIDERS: PCP Physician Assistant; Visit Provider Physician Assistant
DX: K62.3 Rectal prolapse (principal); J34.89 Other specified disorders of nose and nasal sinuses; M94.1 Relapsing polychondritis; F11.20 Opioid dependence, uncomplicated; R05.8 Other specified cough

== ENCOUNTER → 2024-11-30 14:04 | Outpatient (BNVA) | payer OTHER, SELFPAY | PROVIDERS: PCP Physician Assistant; Visit Provider Physician Assistant | DX: K62.3 Rectal prolapse (principal); F41.9 Anxiety disorder, unspecified; F11.20 Opioid dependence, uncomplicated; J34.89 Other specified disorders of nose and nasal sinuses; M94.1 Relapsing polychondritis; R05.8 Other specified cough; J40 Bronchitis, not specified as acute or chronic; D50.9 Iron deficiency anemia, unspecified; D53.8 Other specified nutritional anemias; M25.50 Pain in unspecified joint; G43.901 Migraine, unspecified, not intractable, with status migrainosus; E66.9 Obesity, unspecified; Z68.35 Body mass index [BMI] 35.0-35.9, adult | CPT/HCPCS: 99212 ==